=== PATIENT | female | born 1955 | race Hispanic/Latino ===

== ENCOUNTER 2020-04-14 23:19 | Emergency (ER) | payer MEDICARE ==
[~2020-04-14] VITALS: Ht 165.1 cm; Wt 103.0 kg
--- OUTSIDE RECORDS SUMMARY | 2020-04-14 23:43 | XMS REPORT | Clinical Summary ---
Author Author [facility] ict Organization [facility] ict Address Unknown Phone Unavailable Care Team Providers Care [place] [employer] Remover Name Role Phone Nancy Novoa MD PCP Allergies Comments Active Allergy Reactions Severity Noted Date Amoxicillin Rash, Itching 08/05/2017 Cough Lisinopril 03/11/2018 Penicillins 10/23/2013 Medications End Date Status Medication Sig Dispensed Refills Start Date Active promethazine (PHENERGAN) Take 1 tablet 120 tablet 2 25 mg tabletIndications: by mouth 9 Fall, initial encounter every 6 hours as needed for Nausea or Vomiting. Active spironolactone Take 1/2 45 tablet 3 (ALDACTONE) 25 mg (half) tablet 9 tabletIndications: by mouth Non-ischemic daily. cardiomyopathy Additional Information Patient not taking. Reported on 03/18/2020 9:53 AM Active metoprolol succinate Take 1/2 30 tablet 3 11/14 (TOPROL XL) 25 mg tablet by 9 extended release mouth daily. 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 Active furosemide (LASIX) 40 mg Take 1 tablet 90 tablet 3 tabletIndications: by mouth 2 9 Chemotherapy induced times daily. cardiomyopathy Additional Information Patient not taking. Reported on 03/18/2020 9:53 AM Active Miscellaneous Medical by 1 Each 0 Supply MiscIndications: Misc.(Non-Rolando 0 Malignant neoplasm of g; Combo right breast, stage 3 Route) route DISABILITY PARKING 2 PARKING PLACARDS. Active gabapentin (NEURONTIN) Take 1 90 capsule 2 300 mg capsule by 0 capsuleIndications: mouth 3 times Malignant neoplasm of daily. 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 Active benzonatate (TESSALON Take 1 20 capsule 0 /0 PERLES) 100 mg capsule by 0 capsuleIndications: mouth 2 times Metastatic breast cancer, daily as Cough needed for Cough. Active acetaminophen-codeine Take 1 tablet 60 tablet 0 (TYLENOL/CODEINE #3) by mouth 0 300-30 mg per every 6 hours tabletIndications: as needed for Malignant neoplasm of Pain. right breast, stage 3 Active albuterol 90 Inhale 2 6.7 g 3 mcg/actuation inhaler Puffs by 0 mouth 4 times daily as needed for Wheezing. Active loratadine (CLARITIN) 10 Take 1 tablet 90 tablet 1 mg tablet by mouth 0 daily. Active losartan (COZAAR) 25 mg Take 0.5 90 tablet 1 tabletIndications: tablets by 0 Non-ischemic mouth daily cardiomyopathy Needs to follow up (telemedicine ) with pcp for more refills. Active fluticasone propionate Use 2 Sprays 16 g 1 (FLONASE) 50 by each 0 mcg/actuation nasal nostril route sprayIndications: daily. Environmental allergies 04/29/2019 Discontinued (Reorder) gabapentin (NEURONTIN) Take 1 90 capsule 2 300 mg capsule by 9 capsuleIndications: mouth 3 times Malignant neoplasm of daily. right breast, stage 3 03/18/2020 Discontinued (Reorder) albuterol 90 Inhale 2 6.7 g 3 mcg/actuation Puffs by 9 inhalerIndications: Acute mouth 4 times URI daily as needed for Wheezing. 02/15/2020 Discontinued (Reorder) losartan (COZAAR) 25 mg Take 0.5 45 tablet 3 tabletIndications: tablets by 9 Non-ischemic mouth daily. cardiomyopathy 10/10/2019 Discontinued traMADol (ULTRAM) 50 mg Take 1 tablet 60 tablet 0 tabletIndications: Fall, by mouth 9 initial encounter every 6 hours as needed for up to 30 doses for Pain. 07/31/2019 Discontinued (Reorder) gabapentin (NEURONTIN) Take 1 90 capsule 2 300 mg capsule by 9 capsuleIndications: mouth 3 times Malignant neoplasm of daily. right breast, stage 3 05/06/2019 benzonatate (TESSALON Take 1 20 capsule 0 04/19 PERLES) 100 mg capsule by 9 capsuleIndications: mouth 3 times Metastatic breast cancer daily as needed for up to 7 days for Cough. 10/10/2019 Discontinued (Therapy comple jodie) guaiFENesin SR (MUCINEX) Take 1 tablet 60 tablet 1 600 mg extended release by mouth 2 9 tabletIndications: times daily. Malignant neoplasm of right breast, stage 3 08/24/2019 Discontinued (Reorder) acetaminophen-codeine Take 1 tablet 60 tablet 0 (TYLENOL/CODEINE #3) by mouth 9 300-30 mg per every 6 hours tabletIndications: as needed for Malignant neoplasm of Pain. right breast, stage 3 06/27/2019 clindamycin (CLEOCIN HCL) Take 1 30 capsule 0 300 mg capsule by 9 capsuleIndications: mouth 3 times Dentalgia, Dental daily for 10 infection days. 07/01/2019 chlorhexidine (PERIDEX) Swish with 473 mL 0 0.12 % mouth 1/2 oz of 9 washIndications: solution in Dentalgia, Dental mouth for 30 infection seconds and spit. Use twice daily.. 10/10/2019 Discontinued (Therapy comple jodie) ibuprofen (MOTRIN) 600 mg Take 1 tablet 30 tablet 0 tabletIndications: by mouth 9 Dentalgia, Dental every 8 hours infection as needed for Pain or Fever > 100.5. 03/18/2020 Discontinued (Reorder) mometasone (NASONEX) 50 Use 2 Sprays 17 g 0 1 mcg/actuation nasal by each 9 sprayIndications: nostril route Congestion of both ears daily. 11/24/2019 Discontinued (Reorder) loratadine (CLARITIN) 10 Take 1 tablet 30 tablet 0 mg tabletIndications: by mouth 9 Congestion of both ears daily. 07/22/2019 Discontinued (Reorder) benzonatate (TESSALON) Take 1 20 capsule 0 100 mg capsule by 9 capsuleIndications: mouth 3 times Pneumonia daily for 7 days For cough. 07/12/2019 doxycycline monohydrate Take 1 4 capsule 0 (MONODOX) 100 mg capsule by 9 capsuleIndications: mouth every Pneumonia 12 hours for 2 days. 08/10/2019 benzonatate (TESSALON) Take 1 30 capsule 0 100 mg capsule by 9 capsuleIndications: mouth 3 times Pneumonia daily for 10 days For cough. 11/03/2019 Discontinued (Reorder) gabapentin (NEURONTIN) Take 1 90 capsule 2 300 mg capsule by 9 capsuleIndications: mouth 3 times Malignant neoplasm of daily. right breast, stage 3 10/10/2019 Discontinued (Therapy comple jodie) acetaminophen-codeine Take 1 tablet 60 tablet 0 (TYLENOL/CODEINE #3) by mouth 0 300-30 mg per every 6 hours tabletIndications: as needed for Malignant neoplasm of Pain. right breast, stage 3 10/10/2019 Discontinued (Duplicate Orde r) Miscellaneous Medical by 1 Each 0 08/20 Supply MiscIndications: Misc.(Non-Rolando 0 Malignant neoplasm of g; Combo right breast, stage 3 Route) route PERMANENT PARKING DISABILITY. 10/17/2019 benzonatate (TESSALON Take 1 20 capsule 0 09/20 PERLES) 100 mg capsule by 0 capsuleIndications: Cough mouth 3 times daily as needed for up to 7 days for Cough. 10/10/2019 Discontinued (Error) heparin sodium,porcine/PF 0.3 mL by 1 Vial 1 (HEPARIN, PORCINE, PF,) INTRA-CATHETE 0 1,000 unit/mL Soln IV R route every (Home IV)Indications: 28 days. Malignant neoplasm of right breast, stage 3 10/15/2019 oseltamivir (TAMIFLU) 75 Take 1 10 capsule 0 0 mg capsuleIndications: capsule by 0 Influenza B mouth 2 times daily for 5 days. 11/11/2019 Discontinued (Reorder) gabapentin (NEURONTIN) Take 1 90 capsule 2 300 mg capsule by 0 capsuleIndications: mouth 3 times Malignant neoplasm of daily. right breast, stage 3 02/17/2020 Discontinued (Reorder) acetaminophen-codeine Take 1 tablet 60 tablet 0 (TYLENOL/CODEINE #3) by mouth 0 300-30 mg per every 6 hours tabletIndications: as needed for Malignant neoplasm of Pain. right breast, stage 3 02/15/2020 Discontinued (Reorder) loratadine (CLARITIN) 10 Take 1 tablet 30 tablet 0 mg tabletIndications: by mouth 0 Congestion of both ears daily. 02/17/2020 Discontinued (Reorder) benzonatate (TESSALON Take 1 20 capsule 0 PERLES) 100 mg capsule by 0 capsuleIndications: mouth 2 times Metastatic breast cancer, daily as Cough needed for Cough. 03/18/2020 Discontinued (Reorder) loratadine (CLARITIN) 10 Take 1 tablet 30 tablet 0 mg tabletIndications: by mouth 0 Congestion of both ears daily. 03/18/2020 Discontinued (Reorder) losartan (COZAAR) 25 mg Take 0.5 15 tablet 0 tabletIndications: tablets by 0 Non-ischemic mouth daily cardiomyopathy Needs to follow up (telemedicine ) with pcp for more refills. 03/18/2020 albuterol (PROVENTIL) 2.5 Inhale 3 mL 75 mL 2 mg /3 mL (0.083 %) by mouth once 0 nebulizer for 1 dose. solutionIndications: Environmental allergies 04/11/2020 Discontinued mometasone (NASONEX) 50 Use 2 Sprays 17 g 1 0 mcg/actuation nasal spray by each 0 nostril route daily. Status Hospital, Clinic, or Ordered Dose Route Frequency Start End Date Other Facility Date Administered Medication Ended heparin, porcine-PF 300 Units INTRA-CATHET ONCE 06/10/20 injection 300 Units 19 9 Discontinued heparin, porcine-PF 300 Units INTRA-CATHET EVERY 28 DAYS 0 injection 300 20 0 UnitsIndications: Malignant neoplasm of right breast, stage 3 Active Problems Problem Noted Date Syncope 10/10/2019 Pneumonia 07/07/2019 Abdominal pain 07/07/2019 Elevated CA-125 03/31/2018 Urinary incontinence 03/31/2018 S/P right mastectomy 09/12/2017 Chemotherapy induced diarrhea 08/09/2017 Encounter for dental exam and cleaning w/o abnormal f indings 05/27/2017 BRCA1 genetic carrier 03/29/2017 Breast cancer, stage 3 02/27/2017 Cancer Staging: Pathologic stage from : Stage IV (TX, NX, M1) - Signed by Radha Robison MD on 9 Clinical: Stage IV (T3, N2, M0) - Isabela d by Radha Robison MD on 01/24/2019 Breast hematoma Chest pain PE (pulmonary thromboembolism) Chemotherapy-induced neuropathy Pre-diabetes Influenza B Acute on chronic congestive heart failu re History of pulmonary embolism Right upper lobe consolidation Left bundle branch block Chemotherapy induced cardiomyopathy Peripheral polyneuropathy Cough Pneumonia of left upper lobe due to inf ectious organism Shortness of breath Bacteremia Encounters Care Team Description Date Type Specialty Blanca Segundo MD Medications 04/11/2020 Refill Internal Medicine Rosa Isela Esparza, ResidentMD Blanca Segundo MD Screen for colon cancer (Primary Dx); Environmental allergies; Non-ischemic cardiomyopathy 03/18/2020 Office Visit Internal Medicine Rosa Isela Esparza, ResidentMD 03/18/2020 Orders Only Internal Medicine Marcel Slater NP Malignant neoplasm of right breast, stag e 3 (Primary Dx) 03/16/2020 Telephonic Oncology Encounter Danay Fowler MD Michael, Binu L, NP Malignant neoplasm of right breast, stag e 3 (Primary Dx); Metastatic breast cancer; Cough 02/17/2020 Office Visit Oncology Nancy Novoa MD Medications 02/15/2020 Refill Family Practice Krystal Cox MD Medications 02/15/2020 Refill Oncology Danay Fowler MD Medications 02/15/2020 Refill Oncology Danay Fowler MD Medications 01/20/2020 Orders Only Oncology Margi Rojas RPH 01/20/2020 Orders Only Oncology Marcel Slater NP Medications 01/18/2020 Orders Only Oncology Yvonne Stout MD Metastatic breast cancer (Primary Dx); UTI symptoms 01/06/2020 Telephonic Oncology Encounter Danay Fowler MD 01/05/2020 Orders Only Oncology Krystal Cox MD Malignant neoplasm of right breast, stag e 3 12/31/2019 Ancillary Radiology Procedure Marcel Slater, FINANCIAL INVESTMENT ADVISER Medications 11/24/2019 Orders Only Oncology Danay Fowler MD Malignant neoplasm of right breast, stag e 3 (Primary Dx) 11/11/2019 Office Visit Oncology Marcel Slater, FINANCIAL INVESTMENT ADVISER Medications 11/03/2019 Orders Only Oncology Nova Ni MD Daniel, Catherine L, MD Shortness of breath (Primary Dx); Cough; Malignant neoplasm of right breast, stage 3; Influenza B; Precordial pain 10/09/2019 Emergency - 10/10/2019 Dinah Rocha, Physician Marcel Slater, FINANCIAL INVESTMENT ADVISER Malignant neoplasm of right breast, stag e 3 (Primary Dx) 09/16/2019 Office Visit Oncology Yvonne Stout MD Michael, Binu L, FINANCIAL INVESTMENT ADVISER Erica Scott RN Malignant neoplasm of right breast, stag e 3 (Primary Dx) 09/09/2019 Nurse Only Metastatic breast cancer 09/09/2019 Ancillary Radiology Procedure Marcel Slater, FINANCIAL INVESTMENT ADVISER Medications 09/09/2019 Orders Only Oncology Marcel Slater, FINANCIAL INVESTMENT ADVISER Medications 08/24/2019 Orders Only Oncology Marcel Slater, FINANCIAL INVESTMENT ADVISER Medications 07/31/2019 Orders Only Oncology Yvonne Stout MD Jefferson, Claudette, RN 07/27/2019 Nurse Only Danay Fowler MD Meza Rios, Laura M, Fellow() Metastatic breast cancer (Primary Dx); Pneumonia 07/22/2019 Office Visit Oncology Danay Fowler MD Jefferson, Claudette, RN Left without seen 07/22/2019 Nurse Only Ameena Mansfield MD Ordonez, Edgardo, MD Chest pain, unspecified type (Primary Dx ); Pneumonia of left upper lobe due to infectious organism; Shortness of breath; Pneumonia 07/05/2019 Hospital - Encounter 07/10/2019 Kaelyn Allen, ALLA Dentalgia (Primary Dx); Dental infection; Congestion of both ears 06/15/2019 Same Day Family Practice Dinah Rocha, Physician Nangia, MD [place] Laura M, Fellow(MD) Malignant neoplasm of right breast, stag e 3 (Primary Dx) 06/10/2019 Office Visit Oncology Danay Fowler MD Jefferson, Claudette, FABEIN 06/10/2019 Nurse Only Daniel Interiano MD Chemotherapy induced cardiomyopathy (Carey tonia Dx); LBBB (left bundle branch block) 05/19/2019 Office Visit Cardiology Radha Bertrand, Fellow() Danay Fowler MD Metastatic breast cancer (Primary Dx); Malignant neoplasm of right breast, stage 3 04/29/2019 Office Visit Oncology Marcel Slater NP Allen, Leikasha M, RN 04/22/2019 Hospital Oncology Encounter Metastatic breast cancer 04/22/2019 Ancillary Radiology Procedure after 04/14/2019 Immunizations Name Administration Dates Next Due Influenza Vaccine 06/02/2018 (Deferred: Patie nt Refused) Influenza Vaccine, 11/07/2017 Seasonal, Injectable PNEUMOCOCCAL 23-VALPS 01/21/2018 (Deferred: Patie nt Refused) VACCINE 25 MCG/0.5 ML INJECTION Tdap (Tetanus Toxoid, 11/08/2017 Reduced Diphtheria Toxoid And Acellular Pertussis, Absorbed) Family History Medical History Relation Name Comments Cancer Mother uterine Relation Name Status Comments Mother Social History Date Tobacco Use Types Packs/Day Years Used Never Smoker Smokeless Tobacco: Never Used Tobacco Cessation: Counseling Given: No Drinks/Week oz/Week Comments Alcohol Use Yes Food Insecurity Answer Date Recorded Within the past 12 months, you worried that your Never blade e 12/01/2018 food would run out before you got money to buy more. Within the past 12 months, the food you bought Never true 12/01/2018 just didn't last and you didn't have mo harsha to get more. Sex Assigned at Date Recorded Not on file Industry Job Start Date Occupation Not on file Not on file Not on file Travel End Travel History Travel Start No recent travel history available. Date Recorded COVID-19 Exposure Response 04/08/2020 10:05 PM CDT In the last month, have you been in contact with No / Unsure someone who was confirmed or suspected to have Coronavirus / COVID-19? Last Filed Vital Signs Reading Time Taken Comments Vital Sign 116/70 03/18/2020 9:31 AM CDT Blood Pressure 97 03/18/2020 9:31 AM CDT Pulse 36.6 C (97.9 F) 03/18/2020 9:31 AM CDT Temperature 18 03/18/2020 9:31 AM CDT Respiratory Rate 98% 03/18/2020 9:31 AM CDT Oxygen Saturation - - Inhaled Oxygen Concentration 103 kg (227 lb) 03/18/2020 9:31 AM CDT Weight 165.1 cm (5' 5") 03/18/2020 9:31 AM CDT Height 37.77 03/18/2020 9:31 AM CDT Body Mass Index Plan of Treatment Care Team Description Date Type Specialty Rosa Isela Esparza, ResidentMD [address] [place], [place] [id number] 05/02/2020 Office Visit Internal Medicine sb 07/26/2020 Appointment Health Maintenance Due Date Last Done Comments Cervical Cancer Scrn (3 1978 Yrs) Colorectal Cancer Scrn 12/09/2007 Annual (FIT/FOBT) Age 50 to 75 IMM Influenza Seasonal 05/19/2020 11/07/2017May to October (>/= 19 yrs) Implants Device Identifier Shelf Expiration Date Model / Serial / L ot Implanted Type Area Manufactur er 04/02/2020 [id number] / / [id number] Contour Injection Stent Soft Left: Ureter(s) [employer] Implanted: Qty: 1 on 09/15/2018 by [employer] Titus Durán MD at [facility] Procedures Comments Procedure Name Priority Date/Time Associated Diag nosis CBC Routine 02/17/2020 Malignant neopl asm of 4:11 PM CDT right breast, stage 3 Metastatic breast cancer COMPREHENSIVE METABOLIC Routine 02/17/2020 Malign ant neoplasm of PANEL 4:11 PM CDT right breast, stage 3 Metastatic breast cancer CBC/DIFF Routine 02/17/2020 Malignant neopl asm of 4:11 PM CDT right breast, stage 3 Metastatic breast cancer URINE CULTURE Routine 01/14/[address] cancer 4:05 PM CDT UTI symptoms URINALYSIS Routine 01/14/[address] cancer 4:05 PM CDT UTI symptoms URINALYSIS Routine 01/14/[address] cancer 4:05 PM CDT UTI symptoms TUMORIMAGE PET/CT SKUL-T Routine 12/31/2019 Malig nant neoplasm of 11:55 AM CDT right breast, stage 3 GLUCOSE POC Routine 12/31/2019 9:37 AM CDT CBC STAT 11/11/2019 Malignant neopl asm of 10:00 AM CDT right breast, stage 3 COMPREHENSIVE METABOLIC Routine 11/11/2019 Malign ant neoplasm of PANEL 10:00 AM CDT right breast, stage 3 CBC/DIFF STAT 11/11/2019 Malignant neopl asm of 10:00 AM CDT right breast, stage 3 INFLUENZA DNA/RNA AMP Routine 10/10/2019 PROBE, FLURSV 10:15 AM [employer] CT CHEST PE PROTOCOL STAT 10/10/2019 Shortness of breath 4:28 AM [employer] ECHG EKG PROC 12 LEAD Routine 10/10/2019 EKG; TRACING ONLY 2:12 AM [employer] METAL TROPONIN I STAT 10/10/2019 2:05 AM [employer] METAL D-DIMER STAT 10/10/2019 2:05 AM [employer] MET[employer] XRAY CHEST 2 VIEWS STAT 10/09/2019 9:10 PM [employer] METAL CREATININE POC Routine 10/09/2019 7:18 PM [employer] MET[employer] BMP POC Routine 10/09/2019 7:15 PM [employer] METAL TROPONIN I POC Routine 10/09/2019 7:06 PM [employer] METAL CBC STAT 10/09/2019 7:00 PM [employer] METAL HIV AG/AB COMBO ROUTINE STAT 10/09/2019 SCREENING 7:00 PM [employer] CBC/DIFF STAT 10/09/2019 7:00 PM [employer] MET[employer] ECHG EKG PROC 12 LEAD Routine 10/09/2019 EKG; TRACING ONLY 6:57 PM [employer] METAL CBC Routine 09/21/2019 Malignant neopl asm of 4:07 PM [employer] METAL right breast, stage 3 CBC/DIFF Routine 09/21/2019 Malignant neopl asm of 4:07 PM [employer] METAL right breast, stage 3 COMPREHENSIVE METABOLIC Routine 09/21/2019 Malign ant neoplasm of PANEL 2:34 PM [employer] MET[employer] right breast, stage 3 TUMORIMAGE PET/CT SKUL-T Routine 09/09/2019 Metas tatic breast cancer 11:30 AM [employer] METAL GLUCOSE POC Routine 09/09/2019 9:41 AM [employer] METAL CBC Routine 07/22/2019 Malignant neopl asm of 12:17 PM [employer] MET[employer] right breast, stage 3 COMPREHENSIVE METABOLIC Routine 07/22/2019 Malign ant neoplasm of PANEL 12:17 PM [employer] MET[employer] right breast, stage 3 CBC/DIFF Routine 07/22/2019 Malignant neopl asm of 12:17 PM [employer] MET[employer] right breast, stage 3 CBC Routine 07/10/2019 3:36 AM [employer] METAL BASIC METABOLIC PANEL Routine 07/10/2019 3:36 AM [employer] METAL CBC/DIFF Routine 07/10/2019 3:36 AM [employer] METAL CBC Routine 07/09/2019 3:47 AM [employer] METAL BASIC METABOLIC PANEL Routine 07/09/2019 3:47 AM [employer] METAL CBC/DIFF Routine 07/09/2019 3:47 AM [employer] MET[employer] ECHG EKG PROC 12 LEAD Routine 07/08/2019 EKG; TRACING ONLY 9:39 AM [employer] METAL CBC Routine 07/08/2019 3:29 AM [employer] METAL BASIC METABOLIC PANEL Routine 07/08/2019 3:29 AM [employer] METAL CBC/DIFF Routine 07/08/2019 3:29 AM [employer] METAL ECHG NON-INVASIVE PROC 07/07/2019 ECHOCARDIOGRAM 2-D W/O 2:12 PM [employer] METAL CONTRAST (PROSOLVE) BLOOD CULTURE Timed 07/07/2019 11:25 AM [employer] BLOOD CULTURE Timed 07/07/2019 10:33 AM [employer] MET[employer] BASIC METABOLIC PANEL Routine 07/07/2019 3:46 AM [employer] METAL CBC (WITHOUT Routine 07/07/2019 DIFFERENTIAL) 3:46 AM [employer] METAL INFUSION PUMP Routine 07/06/2019 7:44 AM [employer] METAL VBG POC Routine 07/06/2019 6:52 AM [employer] METAL VBG POC Routine 07/06/2019 4:51 AM [employer] METAL TROPONIN I POC Routine 07/06/2019 3:29 AM [employer] MET[employer] ECHG EKG PROC 12 LEAD STAT 07/06/2019 EKG; TRACING ONLY 3:17 AM [employer] METAL TROPONIN I POC Routine 07/06/2019 3:08 AM [employer] METAL VBG POC Routine 07/06/2019 2:52 AM [employer] METAL GRAM-POS BLOOD CULTURE Add-on 07/06/2019 2:52 AM [employer]AL BLOOD CULTURE STAT 07/06/2019 2:52 AM [employer] METAL BLOOD CULTURE STAT 07/06/2019 2:52 AM [employer] METAL TROPONIN I POC Routine 07/06/2019 12:58 AM [employer] MET[employer] ECHG EKG PROC 12 LEAD STAT 07/06/2019 EKG; TRACING ONLY 12:47 AM [employer] METAL TROPONIN I POC Routine 07/06/2019 12:36 AM [facility] [facility] CT CHEST PE PROTOCOL STAT 07/06/2019 Chest hill n, unspecified 12:34 AM [employer] METAL type URINALYSIS STAT 07/05/2019 11:05 PM [employer] METAL URINALYSIS STAT 07/05/2019 11:05 PM [employer] MET[employer] XRAY CHEST 2 VIEWS STAT 07/05/2019 Chest pain, unspecified 11:02 PM [employer] type BMP POC Routine 07/05/2019 9:20 PM [employer] MET[employer] TROPONIN I POC Routine 07/05/2019 9:18 PM [employer] METAL CBC STAT 07/05/2019 9:15 PM [employer] METAL CBC/DIFF STAT 07/05/2019 9:15 PM [employer] ECHG EKG PROC 12 LEAD Routine 07/05/2019 EKG; TRACING ONLY 9:09 PM [employer] MET[employer] CBC Routine 06/10/[address] cancer 12:15 PM CDT COMPREHENSIVE METABOLIC Routine 06/10/2019 Metast atic breast cancer PANEL 12:15 PM CDT CBC/DIFF Routine 06/10/[address] cancer 12:15 PM CDT CBC Routine 04/29/[address] cancer 11:51 AM CDT COMPREHENSIVE METABOLIC Routine 04/29/2019 Metast atic breast cancer PANEL 11:51 AM CDT CBC/DIFF Routine 04/29/[address] cancer 11:51 AM CDT TUMORIMAGE PET/CT SKUL-T Routine 04/22/2019 Metas tatic breast cancer 9:27 AM CDT GLUCOSE POC Routine 04/22/2019 7:37 AM CDT after 04/14/2019 Results * CBC/Diff (02/17/2020 4:11 PM CDT) Only the most recent of 11 results within the time period is included. [facility] WBC 6.7 4.5 - 11.0 K/uL [facility] RBC 4.22 4.20 - 5.40 M/uL [facility] Hemoglobin 13.0 12.0 - 16.0 g/dL [facility] Hematocrit 40.5 37.0 - 47.0 % [facility] MCV 96.0 (H) 82.0 - 92.0 fL [facility] MCH 30.8 27.0 - 32.0 pg [facility] MCHC 32.1 32.0 - 36.0 g/dL [facility] RDW 53.1 (H) 36.4 - 46.3 fL [facility] Platelet 195 150 - 400 K/uL [facility] Mean Platelet 9.2 (L) 9.4 - 12.4 fL [facility] Volume LAB Neutrophil 55.6 34.0 - 70.0 % [facility] Lymphs 36.0 20.0 - 50.0 % [facility] Monocytes 6.6 5.0 - 12.0 % [facility] Eos 1.5 0.7 - 5.0 % [facility] Basos 0.3 0.1 - 1.2 % [facility] Immature 0.3 0.0 - 0.5 % [facility] Granulocytes LAB Neutrophils 3.71 1.56 - 6.13 K/uL [facility] (Absolute) LAB Lymphs 2.40 1.18 - 3.74 K/uL [facility] (Absolute) LAB Monocytes(Absol 0.44 (H) 0.24 - 0.36 K/uL [facility] roger) LAB Eos (Absolute) 0.10 0.04 - 0.36 K/uL [facility] Baso (Absolute) 0.02 0.01 - 0.08 K/uL [facility] Immature Grans 0.02 0.00 - 0.03 K/uL [facility] (Abs) LAB Specimen Blood Performing Organization Address City/State/Zipcode Ph one Number [facility] [place], [place] [address] * Comprehensive Metabolic Panel (02/17/2020 4:11 PM CDT) Only the most recent of 6 results within the time period is included. [facility] Sodium 140 136 - 145 mmol/L [facility] Potassium 4.2 3.5 - 5.1 mmol/L [facility] Chloride 106 98 - 107 mmol/L [facility] CO2 28 21 - 31 mmol/L [facility] Glucose 102 70 - 110 mg/dL [facility] Calcium 10.2 8.6 - 10.3 mg/dL [facility] Urea Nitrogen 16.0 7.0 - 25.0 mg/dL [facility] Creatinine 0.8 0.6 - 1.2 mg/dL [facility] Alkaline 108 (H) 34 - 104 U/L [facility] Phosphatase LAB ALT 16 7 - 52 U/L [facility] AST 20 13 - 39 U/L [facility] Bilirubin, 0.5 0.2 - 1.2 mg/dL [facility] Total LAB Total Protein 7.6 6.0 - 8.3 g/dL [facility] GFR, Estimated 73 (L) >=90 mL/min/1.73 m2 [facility] [email or web address]] IC LAB Albumin 4.1 3.7 - 5.3 g/dL [facility] Anion Gap 6 5 - 16 mmol/L [facility] Specimen Blood Performing Organization Address [place]State[place] [place] one Number [facility] [place] [place] [address] * Urinalysis (01/14/2020 4:05 PM CDT) Only the most recent of 2 results within the time period is included. [facility] Color Yellow Colorless, Straw, [facility] Clarity Cloudy (A) Clear [facility] Spec [place], 1.027 1.001 - 1.035 [facility] pH, Ur 5.0 5.0 - 8.0 [facility] Protein, Ur 2+ (A) Negative mg/dL [facility] Glucose, Ur Negative Negative mg/dL [facility] Ketone, Ur Negative Negative mg/dL [facility] Bilirubin, Ur Negative Negative mg/dL [facility] Nitrite, Ur Negative Negative [facility] Leukocyte Negative Negative mg/dL [facility] Blood, Ur Negative Negative mg/dL [facility] RBC <1 0 - 4 /HPF [facility] WBC <1 0 - 5 /HPF [facility] Epithelial Cell 3 (H) <=1 /HPF [facility] Mucous Present (A) None seen /HPF [facility] Calc Ox Ro Present (A) None seen /HPF [facility] Urobilinogen, <1.0 <1.0 EU/dL [facility] Specimen Urine Performing Organization Address [facility] one Number [facility] [address] [place] [address] * Urine Culture (01/14/2020 4:05 PM CDT) Urine Culture Urogenital debby [facility] Specimen Urine - Clean Catch Mid Stream Performing Organization Address [facility] one Number [facility] [address] [place] [address] * TUMORIMAGE PET/CT SKUL-T (12/31/2019 11:55 AM CDT) Only the most recent of 3 results within the time period is included. Specimen Impressions Performed At IMPRESSION: SMS 1. Status post mastectomy without evide nce of residual hypermetabolic FDG avid uptake. The previously describ ed pulmonary left apical scarring with residual metastatic nodule has res olved. 2. Non-Hypermetabolic right upper lobe subcentimeter nodule. 3. 2 mildly hypermetabolic soft tissu e left anterior abdomen nodules suggest inflammatory etiology or inject ion granuloma. Attention on followup recommended. Signed By: Roseline Han MD, 12/31/2019 1:39 PM Narrative Performed At EXAM: FDG PET/CT SCAN TUMOR IMAGING SMS INDICATION: 64-year old woman with meta static right breast carcinoma status post chemotherapy radiation and mastectomy and maintained on Talazoparib, . The study is bein g performed for purposes of restaging. TECHNIQUE: Approximately 60 minutes aft er 13.75 mCi IV FDG administration, PET/CT imaging was perf ormed from the level of the skull base to the midthigh. . Cross-section al as well as 3D (MIP) images of the PET data and cross-sectional images of the CT data were generated with co-registration of the 2 image set s. ?The PET images are displayed with and without attenuation correction . ?CT imaging was employed for attenuation correction and anatomic loc alization of PET scan abnormalities. ?A diagnostic CT with co ntrast agents was not performed. Blood glucose: 115 mg/dl Weight: 230 lbs Uptake time: 65 minutes CTDI: 15.99 mGy COMPARISON: Most recent FDG PET/CT 09/09. FINDINGS: Head and neck: There is no abnormal increased or decreased FDG activity in the visualized brain and ce rvical regions. Symmetric tracer uptake in the tonsils is likely physiol ogic. Chest: No FDG-avid pulmonary nodules or mediastinal adenopathy are seen. There is no pleural effusion or pericardial effusion. The previously described diffuse bilateral groundglass opacity has resolved. No abnormal FDG avid mediastinal, hilar lymph nodes identified. Stable, nonhypermetabolic right apical nodule 3 mm on image #83. Resolved left apical scarring without hypermetabolic uptake. Evidence cardiomegaly. Patient status p ost right mastectomy. Abdomen and pelvis: No focal abnorma l FDG uptake is identified in the liver, bilateral adrenals, spleen, or p ancreas. No lymphadenopathy is seen in the retroperitoneum and pelvis. Status post cholecystectomy 2 mildly hypermetabolic subcutaneous no dules the left anterior abdomen the first of which is on image #216 wit h Max SUV 4.5, 7 mm., and image 191, max SUV 3.5, 5.6 mm. Skeleton: No focal abnormal FDG activ ity is identified in the skeleton to suggest bony metastasis. Procedure Note Interface, Rad/Mammog In - 12/31/2019 1:44 PM CDT EXAM: FDG PET/CT SCAN TUMOR IMAGING INDICATION: 64-year old woman with metastatic right breast carcinoma status post chemotherapy radiation and mastectomy and maintained on Talazoparib, . The study is being performed for purposes of restaging. TECHNIQUE: Approximately 60 minutes after 13.75 mCi IV FDG administration, PET/CT imaging was performed from the level of the skull base to the midthigh. . Cross-sectional as well as 3D (MIP) images of the PET data and cross-sectional images of the CT data were generated with co-registration of the 2 image sets. ?The PET images are displayed with and without attenuation correction. ?CT imaging was employed for attenuation correction and anatomic localization of PET scan abnormalities. ?A diagnostic CT with contrast agents was not performed. Blood glucose: 115 mg/dl Weight: 230 lbs Uptake time: 65 minutes CTDI: 15.99 mGy COMPARISON: Most recent FDG PET/CT 09/09/2019. FINDINGS: Head and neck: There is no abnormal increased or decreased FDG activity in the visualized brain and cervical regions. Symmetric tracer uptake in the tonsils is likely physiologic. Chest: No FDG-avid pulmonary nodules or mediastinal adenopathy are seen. There is no pleural effusion or pericardial effusion. The previously described diffuse bilateral groundglass opacity has resolved. No abnormal FDG avid mediastinal, hilar lymph nodes identified. Stable, nonhypermetabolic right apical nodule 3 mm on image #83. Resolved left apical scarring without hypermetabolic uptake. Evidence cardiomegaly. Patient status post right mastectomy. Abdomen and pelvis: No focal abnormal FDG uptake is identified in the liver, bilateral adrenals, spleen, or pancreas. No lymphadenopathy is seen in the retroperitoneum and pelvis. Status post cholecystectomy 2 mildly hypermetabolic subcutaneous nod ules the left anterior abdomen the first of which is on image #216 with Max SUV 4.5, 7 mm., and image 191, max SUV 3.5, 5.6 mm. Skeleton: No focal abnormal FDG activity is identified in the skeleton to suggest bony metastasis. IMPRESSION IMPRESSION: 1. Status post mastectomy without eviden ce of residual hypermetabolic FDG avid uptake. The previously described pulmonary left apical scarring with residual metastatic nodule has resolved. 2. Non-Hypermetabolic right upper lobe s ubcentimeter nodule. 3. 2 mildly hypermetabolic soft tissue left anterior abdomen nodules suggest inflammatory etiology or injection granuloma. Attention on followup recommended. Signed By: Roseline Han MD, 12/31/2019 1:39 PM Performing Organization Address [facility] one Number SMS * POCT GLUCOSE POC docked device (12/31/2019 9:37 AM CDT) Only the most recent of 3 results within the time period is included. [facility] Glucose POC 115 (H) 74 - 106 mg/dL [facility] Specimen Blood Performing Organization Address [facility] [place] one Number [facility] [place] [place] [address] [facility] [address] [place] [address] * Influenza A/B and RSV PCR (10/10/2019 10:15 AM BENCH PATTERNMAKER METAL) [facility] Influenza A Not detected Not detected [facility] Influenza B Detected (A) Not detected [facility] RSV Not detected Not detected [facility] Specimen Nasal/Nasopharyngeal Swab - Nasopharynx Narrative Performed At This test utilizes FDA cleared Becky co bas Influenza A/B & RSV real-time RT-PCR [facility] assay for qualitative detection and dis crimination of Influenza A virus, Influenza B virus and Respiratory Syncy tial virus (RSV). Additional testing is required to differentiate any specific Influenza A subtypes or strains or specific RSV subgroups. Performing Organization Address City/State/Zipcode Ph one Number [facility] [address] [place] [address] * CT CHEST PE PROTOCOL (10/10/2019 4:28 AM BENCH PATTERNMAKER METAL) Only the most recent of 2 results within the time period is included. Specimen Impressions Performed At IMPRESSION: SMS No pulmonary emboli. Mild cardiomegaly. Scattered areas of a ir trapping. If the report is "FINALIZED" it indicat es that the attending/staff radiologist has reviewed the images and agrees with the resident's interpretation. Dictated By: Henrry Butcher MD, 4:42 AM I have reviewed the study and agree wit h the findings in this report. Signed By: Zachary Mendez, 10/10/2019 5 :23 AM Narrative Performed At EXAM: CT Chest WITH contrast (PE Protocol) [facility] INDICATION: PE suspected, intermediate prob, positive D-dimer COMPARISON: CT chest PE on 07/05/2019 a nd PET/CT 09/09/2019. TECHNIQUE: Chest was scanned utilizing a multidete ctor helical scanner from the lung apex through the level of the diap hragm after administration of IV contrast. Thin section reconstructions were obtained with special concentration on the pulmonary arteries . Coronal and sagittal reformations were obtained. Pulmonary e mbolism protocol was performed. IV CONTRAST: 100 mL of Omnipaque 350 COMPLICATIONS: None RADIATION DOSE: Total DLP: 295 mGy*cm Estimated effective dose: (DLP x 0.014 x size factor) mSv CTDIvol has been reviewed. It is below the limits set by the Radiation Protocol Committee (RPC). FINDINGS: LINES/ TUBES: None. PULMONARY ARTERIES: No filling defect i s identified within the pulmonary arteries to the segmental level. Main p ulmonary artery measures 2.8 cm in diameter. LUNGS AND AIRWAYS: Right apical scarrin g and streaky subpleural opacities in the right anterior lung, l ikely postradiation changes. Scattered areas of air trapping. Mild l eft lower lobe subpleural reticulation, likely dependent atelecta sis. Resolution of left upper lobe consolidation. Airways are dylan l. PLEURA: The pleural spaces are clear. LYMPH NODES: No enlarged axillary, supr aclavicular, mediastinal, or hilar lymph nodes. Descending thoracic aorta is mildly tortuous. THYROID/BASE OF NECK: Visualized portio ns are normal. HEART AND MEDIASTINUM: The heart is m ildly enlarged. There is no pericardial effusion. UPPER ABDOMEN: Cholecystectomy clips. BONES: A 0.5 cm sclerotic lesion in the posterior aspect of T6 vertebral body, stable compared to CT chest of 01/24/2017 and likely benign. SOFT TISSUES: Right mastectomy and post surgical changes of the right axilla. Procedure Note Interface, Rad/Mammog In - 10/10/2019 5:28 AM [facility] PATTERN[employer] METAL EXAM: CT Chest WITH contrast (PE Protocol) INDICATION: PE suspected, intermediate prob, positive D-dimer COMPARISON: CT chest PE on 07/05/2019 and PET/CT 09/09/2019. TECHNIQUE: Chest was scanned utilizing a multidetector helical scanner from the lung apex through the level of the diaphragm after administration of IV contrast. Thin section reconstructions were obtained with special concentration on the pulmonary arteries. Coronal and sagittal reformations were obtained. Pulmonary embolism protocol was performed. IV CONTRAST: 100 mL of Omnipaque 350 COMPLICATIONS: None RADIATION DOSE: Total DLP: 295 mGy*cm Estimated effective dose: (DLP x 0.014 x size factor) mSv CTDIvol has been reviewed. It is below the limits set by the Radiation Protocol Committee (RPC). FINDINGS: LINES/ TUBES: None. PULMONARY ARTERIES: No filling defect is identified within the pulmonary arteries to the segmental level. Main pulmonary artery measures 2.8 cm in diameter. LUNGS AND AIRWAYS: Right apical scarring and streaky subpleural opacities in the right anterior lung, likely postradiation changes. Scattered areas of air trapping. Mild left lower lobe subpleural reticulation, likely dependent atelectasis. Resolution of left upper lobe consolidation. Airways are normal. PLEURA: The pleural spaces are clear. LYMPH NODES: No enlarged axillary, supraclavicular, mediastinal, or hilar lymph nodes. Descending thoracic aorta is mildly tortuous. THYROID/BASE OF NECK: Visualized portions are normal. HEART AND MEDIASTINUM: The heart is mildly enlarged. There is no pericardial effusion. UPPER ABDOMEN: Cholecystectomy clips. BONES: A 0.5 cm sclerotic lesion in the posterior aspect of T6 vertebral body, stable compared to CT chest of 01/24/2017 and likely benign. SOFT TISSUES: Right mastectomy and postsurgical changes of the right axilla. IMPRESSION IMPRESSION: No pulmonary emboli. Mild cardiomegaly. Scattered areas of air trapping. If the report is "FINALIZED" it indicates that the attending/staff radiologist has reviewed the images and agrees with the resident's interpretation. Dictated By: Henrry Butcher MD, 10/10/2019 4:42 AM I have reviewed the study and agree with the findings in this report. Signed By: Zachary Mendez, 10/10/2019 5:23 AM Performing Organization Address [facility] one Number [facility] * 12 LEAD EKG (10/10/2019 2:12 AM BENCH PATTERNMAKER METAL) 12 LEAD EKG FOR [facility] Test Date: 2019-10-10 Pat Name: DANIEL PARIKH Department: 5520 Room: Gender: F Payroll Administrative Assistant: : 1955 Requested By: NOVA NI Order Number: [id number] Reading MD: Daniel Interiano M.D. Measurements Intervals [place] Rate: 81 P: 19 [place]: 173 QRS: -17 QRSD: 158 T: 98 QT: 460 QTc: 536 Interpretive Statements SINUS RHYTHM POSSIBLE LEFT ATRIAL ENLARGEMENT LEFT BUNDLE BRANCH BLOCK Electronically Signed On 10-10-2019 4:07:07 B[facility]CH PATTERN[employer]KER METAL by Daniel Interiano M.D. Specimen Performing Organization Address [facility] one Number [facility] * Troponin I (10/10/2019 2:05 AM BENCH PATTERNMAKER METAL) Troponin I <0.03 <0.04 ng/mL [facility] Specimen Blood Performing Organization Address [facility] one Number [facility] [address] [place] [address] * D-Dimer (10/10/2019 2:05 AM [facility]EN[facility] PATTERNMAKER METAL) Pathologist [facility] D-Dimer 1.18 (H)Comment: Values of 0.22 - 0.48 ug/mL [facility] quantitative D-Dimer less than FEU [facility] 0.40 ug/mL FEU have been reported to be associated with a low probability of deep vein thrombosis/pulmonary embolism. This test alone should not be used to rule out DVT/PE. Specimen Blood Performing Organization Address City/State/Zipcode Ph one Number [facility] [address] [place] [address] * XRAY CHEST 2 VIEWS (10/09/2019 9:10 PM [facility]EN[facility] PATTERNMAKER METAL) Only the most recent of 2 results within the time period is included. Specimen Impressions Performed At IMPRESSION: SMS No acute cardiopulmonary process. Posto perative changes as described above. If the report is "FINALIZED" it indicat es that the attending/staff radiologist has reviewed the images and agrees with the resident's interpretation. Dictated By: Jamal Huddleston MD, 0 12:04 AM I have reviewed the study and agree wit h the findings in this report. Signed By: Zachary Mendez, 10/10/2019 1 2:48 AM Narrative Performed At EXAMINATION: XRAY CHEST 2 VIEWS SMS INDICATION: COUGH COMPARISON: Chest radiographs 019, whole body PET CT 09/09/2019 FINDINGS: PA and lateral views TUBES and LINES: Left IJ Port-A-Cath, tip in the SVC. LUNGS: Lungs are well inflated. There is no evidence of pneumonia or pulmonary edema. PLEURA: No pleural effusion or pneumo thorax. HEART AND MEDIASTINUM: The cardiomedi astinal silhouette is unremarkable. BONES AND SOFT TISSUES: No focal osseou s lesion. Surgical clips in the right chest wall/axilla. Status post ri ght mastectomy. UPPER ABDOMEN: No free air under the di aphragm. Procedure Note Interface, Rad/Mammog In - 10/10/2019 12:53 AM [facility] [employer]TERN[facility] METAL EXAMINATION: XRAY CHEST 2 VIEWS INDICATION: COUGH COMPARISON: Chest radiographs 07/05/2019, whole body PET CT 09/09/2019 FINDINGS: PA and lateral views TUBES and LINES: Left IJ Port-A-Cath, tip in the SVC. LUNGS: Lungs are well inflated. There is no evidence of pneumonia or pulmonary edema. PLEURA: No pleural effusion or pneumothorax. HEART AND MEDIASTINUM: The cardiomediastinal silhouette is unremarkable. BONES AND SOFT TISSUES: No focal osseous lesion. Surgical clips in the right chest wall/axilla. Status post right mastectomy. UPPER ABDOMEN: No free air under the diaphragm. IMPRESSION IMPRESSION: No acute cardiopulmonary process. Postoperative changes as described above. If the report is "FINALIZED" it indicates that the attending/staff radiologist has reviewed the images and agrees with the resident's interpretation. Dictated By: Jamal Huddlseton MD, 10/10/2019 12:04 AM I have reviewed the study and agree with the findings in this report. Signed By: Zachary Mendez, 10/10/2019 12:48 AM Performing Organization Address [facility] one Number SMS * POCT CREATININE POC docked device (10/09/2019 7:18 PM [facility] PATTERNMAKER METAL) Creatinine POC 0.7 0.6 - 1.3 mg/dL [facility] GFR, Estimated >90 >=90 mL/min/1.73 m2 [facility] Specimen Blood, venous Performing Organization Address [facility] one Number [facility] [address] [place] [address] * POCT BMP POC docked device (10/09/2019 7:15 PM [facility]ENCH PATTERNMAKER METAL) Only the most recent of 2 results within the time period is included. Sodium POC 140 136 - 145 mmol/L [facility] Potassium POC 4.2 3.5 - 5.1 mmol/L [facility] Chloride POC 104 98 - 107 mmol/L [facility] TCO2 POC 29Comment: Physician Notified 21 - 32 mmol/L [facility] Urea Nitrogen 15 7 - 18 mg/dL [facility] POC [facility] Glucose POC 112 (H) 74 - 106 mg/dL [facility] Hemoglobin POC 13.9 12 - 16 g/dL [facility] Hematocrit POC 41.0 37.0 - 47.0 % [facility] Specimen Blood, venous Performing Organization Address [facility] one Number [facility] [address] [place] [address] * POCT TROPONIN I POC docked device (10/09/2019 7:06 PM [facility] PATTERNMAKER METAL) Only the most recent of 6 results within the time period is included. Troponin POC 0.01Comment: Physician 0.00 - 0.08 ng/mL [facility] Notified [facility] Specimen Blood, venous Performing Organization Address [facility] one Number [facility] [address] [place] [address] * HIV: unless the patient is HIV positive (10/09/2019 7:00 PM [facility]EN[facility] PATTERNMAKER METAL) HIV Ag/Ab Combo Negative Negative [facility] Specimen Blood Performing Organization Address [facility] one Number [facility] [address] [place] [address] * 12 LEAD EKG (10/09/2019 6:57 PM BENCH PATTERNMAKER METAL) 12 LEAD EKG FOR [facility] Test Date: 2019-10-09 Pat Name: DANIEL PARIKH Department: 5520 Room: Gender: F Payroll Administrative Assistant: [id number] : 1955 Requested By: OBDULIA Lazcano Order Number: [id number] Reading MD: tiara shen Measurements Intervals [place] Rate: 79 P: 45 [place]: 167 QRS: -30 QRSD: 156 T: 88 QT: 452 QTc: 520 Interpretive Statements SINUS RHYTHM POSSIBLE LEFT ATRIAL ENLARGEMENT [-0.1mV P WAVE IN V1/V2] LEFT BUNDLE BRANCH BLOCK [120+ ms QRS DURATION, 80+ ms Q/S IN V1/V2, 85+ ms R IN I/aVL/V5/V6] Reviewed by Electronically Signed On 10-09-2019 20:21:08 BENCH PATTERNMAKER METAL by tiara shen Specimen Performing Organization Address [facility] one Number [facility] * Basic Metabolic Panel (07/10/2019 3:36 AM BENCH PATTERNMAKER METAL) Only the most recent of 4 results within the time period is included. Sodium 143 136 - 145 mmol/L [facility] Potassium 4.0 3.5 - 5.1 mmol/L [facility] Chloride 105 98 - 107 mmol/L [facility] CO2 26 21 - 31 mmol/L [facility] Urea Nitrogen 18.0 7.0 - 25.0 mg/dL [facility] Creatinine 0.8 0.6 - 1.2 mg/dL [facility] Glucose 106 70 - 110 mg/dL [facility] Calcium 9.4 8.6 - 10.3 mg/dL [facility] GFR, Estimated 73 (L) >=90 mL/min/1.73 m2 [facility] Anion Gap 12 5 - 16 mmol/L [facility] Specimen Blood Performing Organization Address [facility] Ph one Number [facility] [address] [place] [address] [phone] * 12 LEAD EKG (07/08/2019 9:39 AM BENCH PATTERNMAKER METAL) 12 LEAD EKG FOR [facility] Test Date: 2019-07-08 Pat Name: DANIEL PARIKH Department: [facility] Room: Gender: F Payroll Administrative Assistant: [id number] : 1955 Requested By: VAIBHAV KHAN Order Number: [id number] Reading MD: Prabha Caballero MD Measurements Intervals [place] Rate: 76 P: 32 [place]: 165 QRS: 2 QRSD: 158 T: 53 QT: 460 QTc: 517 Interpretive Statements Sinus rhythm Left bundle branch block Electronically Signed On 07-08-2019 12:51:48 BENCH PATTERNMAKER METAL by Prabha Caballero MD Specimen Performing Organization Address [facility] one Number SMS * TRANSTHORACIC ECHO (TTE) (07/07/2019 2:12 PM BENCH PATTERNMAKER METAL) TRANSTHORACIC Transthoracic [facility] ECHO (TTE) Echo Report DANIEL ZHU Age: 63 Gender: F : 1955 Exam Date: 07/07/2019 14:12 Exam Location: [facility] Echo Ordering Phys: VAIBHAV KHAN Referring Phys: Reading Phys: Prabha Caballero MD Fellow Phys: Fellow Phys: Client Relations Specialist: Andrew Oswald Reason For Exam: Indications: CoNS w/ mecA, staph epi bacteremia. evaluate for endocarditis. 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 Cardiomyopathy ICD-9 Codes: I42.3 Exam Type: TRANSTHORACIC ECHO (TTE) Procedure CPT: 32378 Addtional CPT: Ht (in): 63 BSA: 2.26 HR: 78 Rhythm: Sinus rhythm Wt (lb): 240 BP: 95 / 74 Technical Quality: Adequate History: MEASUREMENTS Normal ranges based on 95% confidence intervals for adults, some normal patients may fall outside of this range especially when indexing for BSA 2D ECHO LV Diastolic Diameter PLAX 7.2 cm 4.2-5.8 (M) / 3.8-5.2 (F) LV Systolic Diameter PLAX 4.3 cm 2.5-4.0 (M) / 2.2-3.5 (F) LV Fractional Shortening PLAX 39.9 % IVS Diastolic Thickness 1.3 cm 0.6-1.0 (M) / 0.6-0.9 (F) LVPW Diastolic Thickness 1.2 cm 0.6-1.0 (M) / 0.6-0.9 (F) LV Relative Wall Thickness 0.35 <= 0.42 LVOT Diameter 2.3 cm Aortic Root Diameter 3.1 cm LA Systolic Diameter LX 3.3 cm LA Ao Ratio 1.1 LV Diastolic Volume MOD BP 252 cm 62-150 cm (M) / 46-106 cm (F) LV Mass by linear method 450 g LV Mass by linear method Index 199 g/m DOPPLER LVOT Peak Velocity 109 cm/s LVOT Peak Gradient 4.8 mmHg LVOT Mean Velocity 69.3 cm/s LVOT Mean Gradient 1.9 mmHg LVOT Velocity Time Integral 17.4 cm LVOT Stroke Volume 73.8 cm Mitral E Point Velocity 83.4 cm/s Mitral A Point Velocity 97.5 cm/s Mitral E to A Ratio 0.86 LV E' Lateral Velocity 8.7 cm/s Mitral E to LV E' Lateral Ratio 9.6 LV E' Septal Velocity 6.6 cm/s Mitral E to LV E' Septal Ratio 12.7 FINDINGS Left Ventricle Severe left ventricular dilatation. Severely reduced global left ventricular systolic function. Left ventricular ejection fraction is 30-34%. Indeterminent diastology Right Ventricle The right ventricle is normal in size and systolic function. Right Atrium The right atrium is normal in size. Left Atrium Mild dilation IAS Mitral Valve Mitral leaflets mildly thickened. Mild MR Aortic Valve AV is not well seen, likely trileaflet, diffuse calcification. There is a small linear density that is on the aortic side of the valve. appearance similar to prior study in 02/2019 Tricuspid Valve Tricuspid valve not well visualized. Pulmonic Valve Pulmonic valve not well visualized. Pericardium No pericardial effusion. Aorta Normal aortic root for body surface area. IVC The inferior vena cava is normal in size. CONCLUSIONS Severe left ventricular dilatation. Severely reduced global left ventricular systolic function. Left ventricular ejection fraction is 30-34%. Indeterminent diastology. AV sclerosis. other valves are not well seen no significant changes compared to prior study Prabha Caballero MD (Electronically Signed) Final Date: 07 July 2019 16:16 2D ECHO LV Diastolic Diameter PLAX 7.2 cm 4.2-5.8 (M) / 3.8-5.2 (F) LV Systolic Diameter PLAX 4.3 cm 2.5-4.0 (M) / 2.2-3.5 (F) LV Fractional Shortening PLAX 39.9 % IVS Diastolic Thickness 1.3 cm 0.6-1.0 (M) / 0.6-0.9 (F) LVPW Diastolic Thickness 1.2 cm 0.6-1.0 (M) / 0.6-0.9 (F) LV Relative Wall Thickness 0.35 <= 0.42 LVOT Diameter 2.3 cm Aortic Root Diameter 3.1 cm LA Systolic Diameter LX 3.3 cm LA Ao Ratio 1.1 LV Diastolic Volume MOD BP 252 cm 62-150 cm (M) / 46-106 cm (F) LV Mass by linear method 450 g LV Mass by linear method Index 199 g/m DOPPLER LVOT Peak Velocity 109 cm/s LVOT Peak Gradient 4.8 mmHg LVOT Mean Velocity 69.3 cm/s LVOT Mean Gradient 1.9 mmHg LVOT Velocity Time Integral 17.4 cm LVOT Stroke Volume 73.8 cm Mitral E Point Velocity 83.4 cm/s Mitral A Point Velocity 97.5 cm/s Mitral E to A Ratio 0.86 LV E' Lateral Velocity 8.7 cm/s Mitral E to LV E' Lateral Ratio 9.6 LV E' Septal Velocity 6.6 cm/s Mitral E to LV E' Septal Ratio 12.7 Specimen Performing Organization Address City/[facility] one Number SMS * Blood Culture X2 - 2 non-specific sites (07/07/2019 11:25 AM [facility] [employer]) Only the most recent of 4 results within the time period is included. Blood Culture No growth 5 days [facility] Specimen Blood - Arm, left Performing Organization Address City/[facility]/Zipcode Ph one Number [facility] [address] [place] [address] * CBC (without differential) (07/07/2019 3:46 AM [facility] [employer]) WBC 8.3 4.5 - 11.0 K/uL [facility] RBC 3.38 (L) 4.20 - 5.40 M/uL [facility] Hemoglobin 11.1 (L) 12.0 - 16.0 g/dL [facility] Hematocrit 33.8 (L) 37.0 - 47.0 % [facility] MCV 100.0 (H) 82.0 - 92.0 fL [facility] MCH 32.8 (H) 27.0 - 32.0 pg [facility] MCHC 32.8 32.0 - 36.0 g/dL [facility] RDW 52.0 (H) 36.4 - 46.3 fL [facility] Platelet 170 150 - 400 K/uL [facility] Mean Platelet 10.3 9.4 - 12.4 fL [facility] Volume [facility] Percent NRBC 0.0 % [facility] Specimen Blood Performing Organization Address [facility] [place]/[facility] one Number [facility] [address] [place], [place] [id number] [phone] * POCT VBG POC docked device (07/06/2019 6:52 AM [facility] [employer]) Only the most recent of 3 results within the time period is included. pH, Silverio POC 7.45 (H) 7.33 - 7.43 [facility] HCO3, [place] POC 23 22 - 26 mmol/L [facility] TCO2 POC 24 21 - 32 mmol/L [facility] PO2, Venous POC 51 50 - 75 mm Hg [facility] pCO2,Silverio POC 32.3 (L) 38 - 50 mmHg [facility] Base Deficit, -1 [facility] Silver[facility] POC [facility] Sample Type IVENComment: Physician [facility] [place] Notified [facility] Lactic Acid POC 0.66 0.40 - 2.00 mmol/L [facility] % Sat, Silverio POC 88 % [facility] Specimen Blood, venous Performing Organization Address [facility] [place] one Number [facility] [address] [place], [place] [id number] * 12 LEAD EKG (07/06/2019 3:17 AM [facility] [employer]) 12 LEAD EKG FOR [facility] Test Date: 2019-07-06 Pat Name: DANIEL PARIKH Department: 5520 Room: [facility] Gender: F Payroll Administrative Assistant: [id number] : 1955 Requested By: AMEENA MANSFIELD Order Number: [id number] Reading MD: Dot Capone Measurements Intervals [place] Rate: 93 P: -6 [place]: 143 QRS: -21 QRSD: 149 T: 117 QT: 383 QTc: 479 Interpretive Statements SINUS RHYTHM LEFT BUNDLE BRANCH BLOCK [120+ ms QRS DURATION, 80+ ms Q/S IN V1/V2, 85+ ms R IN I/aVL/V5/V6] Reviewed by Electronically Signed On 07-06-2019 10:57:43 [facility] [employer] by Dot Capone Specimen Performing Organization Address City/State/Zipcode Ph one Number SMS * Gram-Pos Blood Culture (07/06/2019 2:52 AM [facility] [employer]) Staphylococcus Not Detected Not Detected [facility] Staph aureus Not Detected Not Detected [facility] Staph Detected (A)Comment: POSITIVE Not Detected [facility] epidermidis for the coagulase-negative [facility] staphylococcus, Staphylococcus epidermidis and methicillin-resistance. Detection determined by Verigene nucleic acid test. Staph Not Detected Not Detected [facility] lugdunensis [facility] Streptococcus Not Detected Not Detected [facility] Strep Not Detected Not Detected [facility] agalactiae [facility] Strep pyogenes Not Detected Not detected [facility] Strep Not Detected Not Detected [facility] pneumoniae [facility] Strep anginosus Not Detected Not Detected [facility] sp [facility] Entero faecalis Not Detected Not Detected [facility] Entero faecium Not Detected Not Detected [facility] Listeria Not Detected [facility] mecA Detected Not detected [facility] Specimen Blood - Hand, left Narrative Performed At This test is performed on Nanos[employer] Therapy System utilizing reverse [facility] athletic events scorer (RT), polymerase chain re action (PCR) and array hybridization, FDA cleared mPowaigene Gram-Positive Blood Cu lture Nucleic Acid Test for qualitative multiplex detection and identification of potentially pathogenic gram-positive bacteria directly on blood culture kaylin les identified as positive by continuous monitoring blood culture system and i ch contain gram-positive bacteria. "Not Detected" results for antimicrobial res istance genes should not be interpreted as confirming antimicrobial susceptibil ity of detected organisms. Antimicrobial resistance may be prese nt by mechanisms not detected by the BC-GP panel. Performing Organization Address [facility] one Number [facility] [address] [place] [address] * 12 LEAD EKG (07/06/2019 12:47 AM [facility] [employer]) 12 LEAD EKG FOR [facility] Test Date: 2019-07-06 Pat Name: DANIEL SABILLON Department: 5520 Room: 4A05 Gender: F Payroll Administrative Assistant: [id number] : 1955 Requested By: AMEENA MANSFIELD Order Number: [id number] Reading MD: Dot Capone Measurements Intervals [place] Rate: 93 P: -10 [place]: 146 QRS: -13 QRSD: 150 T: 125 QT: 391 QTc: 487 Interpretive Statements SINUS RHYTHM LEFT BUNDLE BRANCH BLOCK [120+ ms QRS DURATION, 80+ ms Q/S IN V1/V2, 85+ ms R IN I/aVL/V5/V6] Reviewed by Electronically Signed On 07-06-2019 10:57:51 [facility] [employer] by Dot Capone Specimen Performing Organization Address [facility] one Number [facility] * 12 LEAD EKG (07/05/2019 9:09 PM [facility] [employer]) 12 LEAD EKG FOR [facility] Test Date: 2019-07-05 Pat Name: DANIEL MCCORMICK [facility] ([place] [place]) Department: 5520 Room: 4A05 Gender: F Payroll Administrative Assistant: [id number] : 1955 Requested By: SEN Holloway Order Number: [id number] Reading MD: Dot Capone Measurements Intervals [place] Rate: 93 P: -10 [place]: 146 QRS: -35 QRSD: 154 T: 91 QT: 390 QTc: 487 Interpretive Statements SINUS RHYTHM POSSIBLE LEFT ATRIAL ENLARGEMENT [-0.1mV P WAVE IN V1/V2] MARKED LEFT AXIS DEVIATION [QRS AXIS < -30] LEFT BUNDLE BRANCH BLOCK [120+ ms QRS DURATION, 80+ ms Q/S IN V1/V2, 85+ ms R IN I/aVL/V5/V6] Electronically Signed On 07-06-2019 10:57:53 [facility] [employer] by Dot Capone Specimen Performing Organization Address City/State/Zipcode Ph one Number SMS after 04/14/2019 Insurance Type Payer Benefit Subscriber ID Effective Phone Address Plan / Dates Group MEDICARE MEDICARE xxxxxxxxxxx 2019- [phone] PART A & B Present [id number] [place] [address] [facility] FIN[employer]CIAL xxxxxxx 2019-2 [address] [facility] [place] [address] Advance Directives Date Inactivated Comments Code Status Date Activated 10/10/2019 3:34 PM Full Code 10/10/2019 6:02 AM 07/10/2019 4:34 PM Full Code 07/10/2019 11:48 AM 11/14/2018 4:43 PM Full Code 11/13/2018 4:36 PM 09/16/2018 3:19 PM Full Code 09/12/2018 2:37 AM 01/22/2018 5:13 PM Full Code 01/21/2018 6:07 PM
--- OUTSIDE RECORDS SUMMARY | 2020-04-14 23:44 | XMS REPORT | Continuity of Care Document ---
Author Author Formerly [facility] t Organization [facility] Address [facility] Sun [address] [place] [id number] Phone Unavailable Care Team Providers Care Jute Bag Clipper Name Role Phone Sommer MARQUEZ, H Nancy PCP Franco COX Attphys Unavailable ABRAHAM, JAD Attphys Unavailable Amie HURLEY Attphys Unavailable Ratna MARQUEZ, Michael Rios Attphys Janeth MARQUEZ, Nicki Jon Attphys Sommer MARQUEZ, Abbas Attphys Celia Martinez MD, Krystal Attphys [phone] Crystal [facility], Margi Attphys Unavailable Argelia MARQUEZ, Ariana Russell Attphys Raine MARQUEZ, Abimael Attphys Jermaine MARQUEZ, Amie Atkins Attphys Abner Julia Physician, Dinah Attphys [phone] Tyler CONN, Erica Attphys Unavailable Dusty RN, Mora Attphys Unavailable [place] Fellow(), Flaquita Garcia Attphys Kayla MARQUEZ, Guillermo Attphys Rivera MARQUEZ, Brigido Attphys Alejandro WEIGH BOX TENDER, G Kaelyn Attphys Jaydon MARQUEZ, Flaquita Sanchez Attphys Chilango Burrell Fellow(), A Samer Attphys Diomedes CONN, M Robyn Attphys Unavailable Payers Payer Name Policy Type Policy Number Effective Date Expiration Date Germain epps MEDICAREMEDICARE PART A & [id number], [place] [address] xxxxxxxxxxx 2019 00:00:00 [facility] PLANFINANCIAL ASSISTANCE PROGRAMxxx [id number] [place] [address] xxxxxxx 2019 00:00:00 10-16 23:59:[address] [facility] Problems Condition Name Condition Details Condition Category Status Onset Date Resolution Date Last Treatment Date Treating Clinician Comments Source Syncope Syncope Disease Active 2019-10-10 00:00:[address] [facility] Pneumonia Pneumonia Disease Active 2019-07-07 00:00:[address] [facility] Abdominal pain Abdominal pain Disease Active 2019-07-07 00:00:[address] [facility] Elevated CA-125 Elevated CA-125 Disease Active 2018-03-31 00:00:[address] [facility] Urinary incontinence Urinary incontinence Disease Active 00:00:[address] [facility] S/P right mastectomy S/P right mastectomy Disease Active 00:00:[address] 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 Breast cancer, stage 3 Breast cancer, stage 3 Disease Active 2017-02-27 00:00:[address] [facility] Breast hematoma Breast hematoma Disease Active [facility] Chest pain Chest pain Disease Active [facility] PE (pulmonary thromboembolism) PE (pulmonary thromboembolism) Disease Active 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 Pre-diabetes Pre-diabetes Disease Active [facility] Influenza B Influenza B Disease Active [facility] Acute on chronic congestive heart failure Acute on chr onic congestive heart failure Disease Active [facility] History of pulmonary embolism History of pulmonary embolism Disease Active [facility] Right upper lobe consolidation Right upper lobe consolidation Disease Active [facility] Left bundle branch block Left bundle branch block Disease Active 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 Peripheral polyneuropathy Peripheral polyneuropathy Disease Active [facility] Cough Cough Disease Active [facility] Pneumonia of left upper lobe due to infectious organis m Pneumonia of left upper lobe due to infectious organism Disease Active [facility] Shortness of breath Shortness of breath Disease Active [facility] Bacteremia Bacteremia Disease Active [facility] Allergies, Adverse Reactions, Alerts Allergy Name Allergy Type Status Severity Reaction(s) Onset Date Inacti ve Date Treating Clinician Comments Source Lisinopril Propensity to adverse reactions to drug Active 2018-03-11 00:00:[address] [facility] Amoxicillin Propensity to adverse reactions to drug Active Rash, Itching 2017-08-05 00:00:[address] [facility] Penicillins Propensity to adverse reactions to drug Active 2013-10-23 00:00:[address] [facility] Family History Family Member Diagnosis Comments Start Date Stop Date Source Natural mother Cancer [facility] Social History Social Habit Start Date Stop Date Quantity Comments Source Sex Assigned At [facility] Exposure to SARS-CoV-2 (event) Not sure [facility] Alcohol intake 2020-03-18 00:00:00 2020-03-18 00:00:00 Current drinker of alcohol (finding) [facility] History SDOH Food Worry 2018-12-01 00:00:00 2018-12-01 00:00:00 1 [facility] Food Scarcity 2018-12-01 00:00:00 2018-12-01 00:00:[address] [facility] Smoking Status Start Date Stop Date Source Never smoker [facility] Medications Ordered Medication Name Filled Medication Name Start Date Stop Da te Current Medication? Ordering Clinician Indication Dosage Frequency Signature (SIG) Comments Components Source fluticasone propionate (FLONASE) 50 mcg/actuation nasal spra y 2020-04-11 00:00:00 Yes Environmental allergies 2{spray} QD Use 2 Sprays by each nostril route daily. [facility] albuterol 90 mcg/actuation inhaler 2020-03-18 00:00:00 Yes 2{puff} Inhale 2 Puffs by mouth 4 times daily as needed for Wheezing. [facility] loratadine (CLARITIN) 10 mg tablet 2020-03-18 00:00:00 Yes 10mg QD Take 1 tablet by mouth daily. [facility] losartan (COZAAR) 25 mg tablet 2020-03-18 00:00:00 Yes Non-ischemic cardiomyopathy 12.5mg QD Take 0.5 tablets by mouth daily Needs to follow up (telemedicine) with pcp for more refills. [facility] mometasone (NASONEX) 50 mcg/actuation nasal spray 2020-03-18 00:00:00 2020-04-11 00:00:00 No 2{spray} QD Use 2 Sprays by each nostril route daily. [facility] albuterol (PROVENTIL) 2.5 mg /3 mL (0.083 %) nebulizer solut ion 2020-03-18 00:00:00 2020-03-18 23:59:00 No Environmental allergies 2.5mg Inhale 3 mL by mouth once for [address] [facility] loratadine (CLARITIN) 10 mg tablet 2020-02-19 00:00:00 00:00:00 No Congestion of both ears 10mg QD Take 1 tablet by mouth celestino ly. [facility] benzonatate (TESSALON PERLES) 100 mg capsule 2020-02-17 00:0 0:00 Yes Cough 100mg Take 1 capsule by mouth 2 times daily as needed for Cough. [facility] acetaminophen-codeine (TYLENOL/CODEINE #3) 300-30 mg per tab let 2020-02-17 00:00:00 Yes Malignant neoplasm of right breast, stag e 3 1{tbl} Take 1 tablet by mouth every 6 hours as needed for Pain. [facility] losartan (COZAAR) 25 mg tablet 2020-02-15 00:00:00 2020-02-19 1 00:00:00 No Non-ischemic cardiomyopathy 12.5mg QD Take 0.5 tab lets by mouth daily Needs to follow up (telemedicine) with pcp for more refills. [facility] talazoparib 0.25 mg cap 2020-01-20 00:00:00 Yes Malignant neoplasm of right breast, stage 3 .75mg Take 0.75 mg by mo uth Take 3 tablets of the 0.25 mg ( a total of 0.75 mg) DAILY. [facility] ronen benzonatate (TESSALON PERLES) 100 mg capsule 00:00:00 2020-02-17 00:00:00 No Cough 100mg Take 1 capsule by mouth 2 times daily as needed for Cough. [facility] loratadine (CLARITIN) 10 mg tablet 2019-11-24 00:00:00 00:00:00 No Congestion of both ears 10mg QD Take 1 tablet by mouth celestino ly. [facility] gabapentin (NEURONTIN) 300 mg capsule 2019-11-11 00:00:00 Yes Malignant neoplasm of right breast, stage 3 300mg Take 1 capsule by mouth [address] [facility] acetaminophen-codeine (TYLENOL/CODEINE #3) 300-30 mg per tab let 2019-11-11 00:00:00 2020-02-17 00:00:00 No Malignant neoplasm of right breast, stage 3 1{tbl} Take 1 tablet by mouth every 6 hours as needed for Mily n. [facility] gabapentin (NEURONTIN) 300 mg capsule 2019-11-03 00:00 :00 2019-11-11 00:00:00 No Malignant neoplasm of right breast, stage 3 300mg Take 1 capsule by mouth [address] [facility] benzonatate (TESSALON PERLES) 100 mg capsule 00:00:00 2019-10-17 23:59:00 No Cough 100mg Take 1 capsule by mouth 3 times daily as needed for up to 7 days for Cough. [facility] oseltamivir (TAMIFLU) 75 mg capsule 2019-10-10 00:00:0 0 2019-10-15 23:59:00 No Influenza B 75mg Q.5D Take 1 capsule by mouth 2 times li y for [address] [facility] heparin sodium,porcine/PF (HEPARIN, PORC INE, PF,) 1,000 unit/mL Soln IV (Home IV) 2019-10-10 00:00:00 2019-10-10 00:00:00 No Malignant neoplasm of right breast, stage 3 300U 0.3 mL by INTRA-CATHETER route every [address] [facility] heparin, porcine-PF injection 300 Units 10:00:00 2019-10-10 11:18:26 No Malignant neoplasm of right breast, stage [address] [facility] Miscellaneous Medical Supply Misc 2019-09-09 00:00:2019 00:00:00 No Malignant ne[facility] of right breast, stage [facility]; Combo Route) route PERMANENT PARKING DISABILITY. [facility] Miscellaneous Medical Supply [facility] 2019-08-24 00:00:00 Yes Malignant neoplasm of right breast, stage 3 by Mis c.(Non-Drug; Combo Route) route DISABILITY PARKING 2 PARKING PLACARDS. [facility] acetaminophen-codeine (TYLENOL/CODEINE #3) 300-30 mg per tab let 2019-08-24 00:00:00 2019-10-10 00:00:00 No Malignant neoplasm of right breast, stage 3 1{tbl} Take 1 tablet by mouth every 6 hours as needed for Mily n. [facility] gabapentin (NEURONTIN) 300 mg capsule 2019-07-31 00:00 :00 2019-11-03 00:00:00 No Malignant neoplasm of right breast, stage 3 300mg Take 1 capsule by mouth [address] [facility] benzonatate (TESSALON) 100 mg capsule 2019-07-22 00:00 :00 2019-08-10 23:59:00 No Pneumonia 100mg Take 1 capsule by mouth 3 times daily for 10 days For cough. [facility] benzonatate (TESSALON) 100 mg capsule 2019-07-10 00:00 :00 2019-07-22 00:00:00 No Pneumonia 100mg Take 1 capsule by mouth 3 times daily for 7 days For cough. [facility] doxycycline monohydrate (MONODOX) 100 mg capsule 2019-07-10 00:00:00 2019-07-12 23:59:00 No Pneumonia 100mg Take 1 capsule by mouth every 12 hours for [address] [facility] mometasone (NASONEX) 50 mcg/actuation nasal spray 2019-06-15 00:00:00 2020-03-18 00:00:00 No Congestion of both ears 2{spray} QD Use 2 Sprays by each nostril route daily. [facility] loratadine (CLARITIN) 10 mg tablet 2019-06-15 00:00:00 00:00:00 No Congestion of both ears 10mg QD Take 1 tablet by mouth celestino ly. [facility] ibuprofen (MOTRIN) 600 mg tablet 2019-06-15 00:00:00 2019-09 00:00:00 No Dental infection 600mg Take 1 tablet by mary th every 8 hours as needed for Pain or Fever > 100.5. [facility] chlorhexidine (PERIDEX) 0.12 % mouth wash 2018-08 00:00:00 2019-07-01 23:59:00 No Dental infection Swish wi th 1/2 oz of solution in mouth for 30 seconds and spit. Use twice daily.. [facility] clindamycin (CLEOCIN HCL) 300 mg capsule 2019-05 00:00:00 2019-06-27 23:59:00 No Dental infection 300mg Take 1 c apsule by mouth 3 times daily for [address] [facility] heparin, porcine-PF injection 300 Units 12:30:00 2019-06-10 12:59:[address] [facility] guaiFENesin SR (MUCINEX) 600 mg extended release tablet 2019-06-10 00:00:00 2019-10-10 00:00:00 No Malignant neoplasm of right breast, st age 3 600mg Q.5D Take 1 tablet by mouth [address] [facility] acetaminophen-codeine (TYLENOL/CODEINE #3) 300-30 mg per tab let 2019-06-10 00:00:00 2019-08-24 00:00:00 No Malignant neoplasm of right breast, stage 3 1{tbl} Take 1 tablet by mouth every 6 hours as needed for Mily n. [facility] furosemide (LASIX) 40 mg tablet 2019-05-19 00:00:00 Yes Chemotherapy induced cardiomyopathy 40mg Q.5D Take 1 tablet by mouth 2 times li y. [facility] gabapentin (NEURONTIN) 300 mg capsule 2019-04-29 00:00 :00 2019-07-31 00:00:00 No Malignant neoplasm of right breast, stage 3 300mg Take 1 capsule by mouth [address] [facility] benzonatate (TESSALON PERLES) 100 mg capsule 201 04-27-11 00:00:00 2019-05-06 23:59:00 No Metastatic breast cancer 100mg Take 1 capsule by mouth 3 times daily as needed for up to 7 days for Cough. [facility] talazoparib 0.25 mg cap 2019-04-01 00:00:00 Yes Malignant neoplasm of right breast, stage 3 .75mg Take 0.75 mg by mo uth Take 3 tablet of the 0.25 mg ( a total of 0.75 mg) DAILY. [facility] traMADol (ULTRAM) 50 mg tablet 2019-03-04 00:00:00 2019-09-20 2 00:00:00 No Fall, initial encounter 50mg Take 1 tablet by mouth every 6 hours as needed for up to 30 doses for Pain. [facility] losartan (COZAAR) 25 mg tablet 2018-12-10 00:00:00 2020-01-19 9 00:00:00 No Non-ischemic cardiomyopathy 12.5mg QD Take 0.5 tablets by mouth li y. [facility] promethazine (PHENERGAN) 25 mg tablet 2018-11-14 00:00:00 Yes Fall, initial encounter 25mg Take 1 tablet by [facility] every 6 hours as needed for Nausea or Vomiting. [facility] spironolactone (ALDACTONE) 25 mg tablet 2018-11-14 00:00:00 Yes Non- ischemic cardiomyopathy 12.5mg QD Take 1/2 (half) tablet by mouth da darrius. [facility] metoprolol succinate (TOPROL XL) 25 mg extended release tabl et 2018-11-14 00:00:00 Yes Diarrhea, unspecified type 12.5mg QD Take 1/2 tablet by mouth daily. [facility] albuterol 90 mcg/actuation inhaler 2018-11-14 00:00:00 00:00:00 No Acute URI 2{puff} Inhale 2 Puffs b y mouth 4 times daily as needed for Wheezing. [facility] gabapentin (NEURONTIN) 300 mg capsule 2018-11-14 00:00 :00 2019-04-29 00:00:00 No Malignant neoplasm of right breast, stage 3 300mg Take 1 capsule by mouth [address] [facility] Immunizations Ordered Immunization Name Filled Immunization Name Date Status Comments Source Tdap (Tetanus Toxoid, Reduced Diphtheria Toxoid And Acellular Pertussis, Absorbed) 2017-11-08 00:00:00 Completed [facility] ealt Influenza Vaccine, Seasonal, Injectable 2017-11-07 00:00:[address] [facility] Vital Signs Vital Name Observation Time Observation Value Comments Source Systolic blood pressure 2020-03-18 09:31:00 116 mm[Hg] [facility] Diastolic blood pressure 2020-03-18 09:31:00 70 mm[Hg] [facility] Heart rate 2020-03-18 09:31:00 97 /min formerly [facility] Body temperature 2020-03-18 09:31:00 36.61 Loan Nathan is [facility] Respiratory rate 2020-03-18 09:31:00 18 /min Nathan is [facility] Body height 2020-03-18 09:31:00 165.1 cm formerly [facility] Body weight 2020-03-18 09:31:00 102.967 kg formerly [facility] BMI 2020-03-18 09:31:00 37.77 kg/m2 formerly [facility] Oxygen saturation in Arterial blood by Pulse oximetry 03-18 09:31:00 98 /min [facility] Procedures Procedure Date / Time Performed Performing Clinician Sour e CBC/DIFF 2020-02-17 16:11:[address] [facility] COMPREHENSIVE METABOLIC PANEL 2020-02-17 16:11:[address] [facility] CBC 2020-02-17 16:11:[address] [facility] URINALYSIS 2020-01-14 16:05:[address] [facility] URINALYSIS 2020-01-14 16:05:[address] [facility] URINE CULTURE 2020-01-14 16:05:[address] [facility] TUMORIMAGE PET/CT SKUL-T 2019-12-31 11:55:[address] [facility] GLUCOSE POC 2019-12-31 09:37:00 Krystal Cox [facility] CBC/DIFF 2019-11-11 10:00:[address] [facility] COMPREHENSIVE METABOLIC PANEL 2019-11-11 10:00:[address] [facility] CBC 2019-11-11 10:00:[address] [facility] INFLUENZA DNA/RNA AMP PROBE, FLURSV 2019-10-10 10:15:[address] [facility] CT CHEST PE PROTOCOL 2019-10-10 04:28:[address] [facility] ECHG EKG PROC 12 LEAD EKG; TRACING ONLY 2019-10-10 02:12:[address] [facility] D-DIMER 2019-10-10 02:05:00 [facility] 2019-10[facility]10 02:05:00 Jermaine Lui [facility] XRAY CHEST 2 VIEWS 2019-10-09 21:10:30 Obdulia García ealth CREATININE POC 2019-10-09 19:18:00 Unknown, Provider Alok [facility] BMP POC 2019-10-09 19:15:00 Unknown, Provider Alok [facility] TROPONIN I POC 2019-10-09 19:06:00 Unknown, Provider Alok [facility] CBC/DIFF 2019-10-09 19:00:00 Obdulia García [facility] HIV AG/AB COMBO ROUTINE SCREENING 2019-10-09 19:00:00 Obdulia García [facility] CBC 2019-10-09 19:00:00 Obdulia García E[facility] EKG PROC 12 LEAD EKG; TRACING ONLY 2019-10-09 18:57:[address] [facility] CBC/DIFF 2019-09-21 16:07:00 Wild Hurley [facility] h CBC 2019-09-21 16:07:[address] [facility] COMPREHENSIVE METABOLIC PANEL 2019-09-21 14:34:[address] [facility] TUMORIMAGE PET/CT SKUL-T 2019-09-09 11:30:[address] [facility] GLUCOSE POC 2019-09-09 09:41:00 Yvonne Stout [facility] ealt CBC/DIFF 2019-07-22 12:17:[address] [facility] COMPREHENSIVE METABOLIC PANEL 2019-07-22 12:17:00 Glen Wilkerson ra [facility] CBC 2019-07-22 12:17:[address] [facility] CBC/DIFF 2019-07-10 03:36:00 Malcom Romero [facility] BASIC METABOLIC PANEL 2019-07-10 03:36:[address] [facility] CBC 2019-07-10 03:36:00 Malcom Romero [facility] CBC/DIFF 2019-07-09 03:47:00 Malcom Romero [facility] BASIC METABOLIC PANEL 2019-07-09 03:47:[address] [facility] CBC 2019-07-09 03:47:[address] [facility] ECHG EKG PROC 12 LEAD EKG; TRACING ONLY 2019-07-08 09:39:[address] [facility] CBC/DIFF 2019-07-08 03:29:00 NickMalcom [facility] BASIC METABOLIC PANEL 2019-07-08 03:29:[address] [facility] CBC 2019-07-08 03:29:[address] [facility] ECHG NON-INVASIVE PROC ECHOCARDIOGRAM 2-D W/O CONTRAST (PROSOLVE) 2019-07-07 14:12:00 SarthakWalt [facility] BLOOD CULTURE 2019-07-07 11:25:00 NickMalcom [facility] BLOOD CULTURE 2019-07-07 10:33:00 NickMalcom [facility] CBC (WITHOUT DIFFERENTIAL) 2019-07-07 03:46:00 Sarthak [facility] BASIC METABOLIC PANEL 2019-07-07 03:46:00 Sarthak [facility] INFUSION PUMP 2019-07-06 07:44:40 KhanBrigido mendoza [facility] POC 2019-07-06 06:52:00 Khan [facility] VBG POC 2019-07-06 04:51:00 Guillermo Mansfield [facility] TROPONIN I POC 2019-07-06 03:29:00 Randy Mansfieldaminata [facility] ECHG EKG PROC 12 LEAD EKG; TRACING ONLY 2019-07-06 03:17:[address] [facility] TROPONIN I POC 2019-07-06 03:08:00 [facility] 2019-07-06 02:52:00 Josiah Jocelin Caceres [facility] GRAM-POS BLOOD CULTURE 2019-07-06 02:52:00 Jocelin Rahman [facility] POC 2019-07-06 02:52:00 Randy Mansfieldaminata [facility] lth TROPONIN I POC 2019-07-06 00:58:00 KaylaRandy morrisseyaminata [facility] ECHG EKG PROC 12 LEAD EKG; TRACING ONLY 2019-07-06 00:47:[address] [facility] TROPONIN I POC 2019-07-06 00:36:00 Guillermo Mansfield Alok garth [facility] CT CHEST PE PROTOCOL 2019-07-06 00:34:23 Julia Maguire [facility] URINALYSIS 2019-07-05 23:05:00 Julia Maguire [facility] alth URINALYSIS 2019-07-05 23:05:00 Julia Maguire [facility] alth XRAY CHEST 2 VIEWS 2019-07-05 23:02:[address] [facility] BMP POC 2019-07-05 21:20:00 Unknown, Provider Alok Vyas [facility] TROPONIN I POC 2019-07-05 21:18:00 Unknown, Provider Alok Vyas [facility] CBC/DIFF 2019-07-05 21:15:00 Tayler Zhang alth CBC 2019-07-05 21:15:00 Tayler Zhang [facility] alth ECHG EKG PROC 12 LEAD EKG; TRACING ONLY 2019-07-05 21:09:[address] [facility] CBC/DIFF 2019-06-10 12:15:00 Radha Bertrand alth COMPREHENSIVE METABOLIC PANEL 2019-06-10 12:15:[address] [facility] CBC 2019-06-10 12:15:00 Radha Bertrand alth CBC/DIFF 2019-04-29 11:51:00 Radha Bertrand [facility] alth COMPREHENSIVE METABOLIC PANEL 2019-04-29 11:51:[address] [facility] CBC 2019-04-29 11:51:00 Radha Bertrand alth TUMORIMAGE PET/CT SKUL-T 2019-04-22 09:27:[address] [facility] GLUCOSE POC 2019-04-22 07:37:00 Unknown, Provider Alok [facility] Plan of Care Planned Activity Planned Date Details Comments Source Future Scheduled Test 2020-05-19 00:00:00 IMM Influenza Seas onal May to October (>/= 19 yrs) [code = IMM Influenza Seasonal May to October (>/= 19 yrs)] [facility] Future Scheduled Test 2007-12-09 00:00:00 Screening for michelle heredia neoplasm of colon (procedure) [code = 432919679] [facility] Future Scheduled Test 1978 00:00:00 Screening for michelle gnant neoplasm of cervix (procedure) [code = 158064766] [facility] Encounters Start Date/Time End Date/Time Encounter Type Admission Type [facility] Care Department Encounter ID Source 2019-07-10 14:05:52 Inpatient [facility] [id number] [facility] 2019-07-10 08:00:38 Inpatient [facility] [id number] [facility] 2019-07-09 00:00:00 Inpatient [facility] [id number] [facility] 2018-09-15 10:40:08 Inpatient [facility] [id number] [facility] 2018-09-15 00:00:00 Inpatient [facility] [id number] [facility] 2018-09-15 00:00:00 Inpatient [facility] [id number] [facility] 2018-09-12 12:20:47 Inpatient [facility] [id number] [facility] 2018-09-12 05:15:07 Inpatient [facility] [id number] [facility] 2020-07-26 00:00:00 2020-07-26 00:00:00 Outpatient [facility] [id number] [facility] 2020-05-02 00:00:00 2020-05-02 00:00:00 Outpatient [facility] [id number] [facility] 2020-04-29 00:00:00 2020-04-29 00:00:00 Outpatient ALIA ROSARIO [facility] [id number] [facility] 2020-04-13 00:00:00 2020-04-13 00:00:00 Outpatient WILD HURLEY [facility] [id number] [facility] 2020-04-13 00:00:00 2020-04-13 00:00:00 Outpatient WILD HURLEY [facility] [id number] [facility] 2020-03-18 09:36:17 2020-03-18 10:27:38 Outpatient ELIZABETH PLAZA [facility] [id number] [facility] 2020-03-16 06:46:52 2020-03-16 17:32:18 Outpatient WILD HURLEY [facility] [id number] [facility] 2020-03-16 00:00:00 2020-03-16 00:00:00 Outpatient [facility] [id number] [facility] 2020-02-26 00:00:00 2020-02-26 00:00:00 Outpatient [facility] [id number] [facility] 2020-02-17 16:08:38 2020-02-17 16:08:38 Outpatient [facility] [id number] [facility] 2020-02-17 14:42:54 2020-02-17 14:42:54 Outpatient [facility] [id number] [facility] 2020-02-10 00:00:00 2020-02-10 00:00:00 Outpatient [facility] [id number] [facility] 2020-02-10 00:00:00 2020-02-10 00:00:00 Outpatient [facility] [id number] [facility] 2020-01-14 15:24:35 2020-01-14 15:24:35 Outpatient [facility] [id number] [facility] 2020-01-14 00:00:00 2020-01-14 00:00:00 Outpatient [facility] [id number] [facility] 2020-01-06 06:40:41 2020-01-06 06:40:41 Outpatient [facility] [id number] [facility] 2020-01-06 00:00:00 2020-01-06 00:00:00 Outpatient [facility] [id number] [facility] 2020-01-05 00:00:00 2020-01-05 00:00:00 Outpatient [facility] [id number] [facility] 2020-01-04 00:00:00 2020-01-04 00:00:00 Outpatient [facility] [id number] [facility] 2019-12-31 09:13:21 2019-12-31 09:13:21 Outpatient [facility] [id number] [facility] 2019-11-11 10:24:40 2019-11-11 10:24:40 Outpatient [facility] [id number] [facility] 2019-11-11 10:00:05 2019-11-11 10:00:05 Outpatient [facility] [id number] [facility] 2019-11-09 00:00:00 2019-11-09 00:00:00 Outpatient [facility] [id number] [facility] 2019-10-10 04:06:28 2019-10-10 04:06:28 Emergency [facility] [id number] [facility] 2019-10-09 23:36:39 2019-10-09 23:36:39 [facility]patient [facility] [id number] [facility] 2019-10-09 20:59:16 2019-10-09 20:59:16 Emergency [facility] [id number] [facility] 2019-09-21 14:23:06 2019-09-21 14:23:06 Outpatient [facility] [id number] [facility] 2019-09-16 15:11:31 2019-09-16 15:11:31 Outpatient [facility] [id number] [facility] 2019-09-16 00:00:00 2019-09-16 00:00:00 Outpatient [facility] [id number] [facility] 2019-09-09 09:33:05 2019-09-09 09:33:05 Outpatient [facility] [id number] [facility] 2019-09-09 09:25:16 2019-09-09 09:25:16 Outpatient [facility] [id number] [facility] 2019-09-02 00:00:00 2019-09-02 00:00:00 Outpatient [facility] [id number] [facility] 2019-07-27 13:02:51 2019-07-27 13:02:51 Outpatient [facility] [id number] [facility] 2019-07-22 12:32:33 2019-07-22 12:32:33 Outpatient [facility] [id number] [facility] 2019-07-22 12:16:26 2019-07-22 12:16:26 Outpatient [facility] [id number] [facility] 2019-07-22 11:58:35 2019-07-22 11:58:35 Outpatient [facility] [id number] [facility] 2019-07-20 00:00:00 2019-07-20 00:00:00 Outpatient [facility] [id number] [facility] 2019-07-07 14:36:25 2019-07-07 14:36:25 Outpatient [facility] [id number] [facility] 2019-07-05 23:45:01 2019-07-05 23:45:01 Emergency [facility] [id number] [facility] 2019-07-05 22:40:26 2019-07-05 22:40:26 Emergency [facility] [id number] [facility] 2019-07-05 21:09:19 2019-07-05 21:09:19 [facility]patient [facility] [id number] [facility] 2019-06-23 00:00:00 2019-06-23 00:00:00 Outpatient [facility] [id number] [facility] 2019-06-15 16:09:2019-06-15 16:09:09 Outpatient [facility] [id number] [facility] 2019-06-10 12:59:14 2019-06-10 12:59:14 Outpatient [facility] [id number] [facility] 2019-06-10 12:13:15 2019-06-10 12:13:15 Outpatient [facility] [id number] [facility] 2019-06-10 12:12:25 2019-06-10 12:12:25 Outpatient [facility] [id number] [facility] 2019-06-10 00:00:00 2019-06-10 00:00:00 Outpatient [facility] [id number] [facility] 2019-06-04 00:00:00 2019-06-04 00:00:00 Outpatient [facility] [id number] [facility] 2019-05-19 09:48:59 2019-05-19 09:48:59 Outpatient [facility] [id number] [facility] 2019-04-29 12:43:51 2019-04-29 12:43:51 Outpatient [facility] [id number] [facility] 2019-04-29 11:49:38 2019-04-29 11:49:38 Outpatient [facility] [id number] [facility] 2019-04-29 00:00:00 2019-04-29 00:00:00 Outpatient [facility] [id number] [facility] 2019-04-29 00:00:00 2019-04-29 00:00:00 Outpatient [facility] [id number] [facility] 2019-04-22 10:54:37 2019-04-22 10:54:37 Outpatient [facility] [id number] [facility] 2019-04-22 07:23:46 2019-04-22 07:23:46 Outpatient [facility] [id number] [facility] 2019-04-14 00:00:00 2019-04-14 00:00:00 Outpatient [facility] [id number] [facility] 2019-04-13 14:35:33 2019-04-13 14:35:33 Outpatient [facility] [id number] [facility] 2019-04-01 14:33:57 2019-04-01 14:33:57 Outpatient [facility] [id number] [facility] 2019-04-01 13:32:15 2019-04-01 13:32:15 Outpatient [facility] [id number] [facility] 2019-03-18 13:16:40 2019-03-18 13:16:40 Outpatient [facility] [id number] [facility] 2019-03-10 00:00:00 2019-03-10 00:00:00 Outpatient [facility] [id number] [facility] 2019-03-05 00:00:00 2019-03-05 00:00:00 Outpatient [facility] [id number] [facility] 2019-03-04 15:23:42 2019-03-04 15:23:42 Outpatient [facility] [id number] [facility] 2019-03-04 14:26:05 2019-03-04 14:26:05 Outpatient [facility] [id number] [facility] 2019-03-04 00:00:00 2019-03-04 00:00:00 Outpatient [facility] [id number] [facility] 2019-02-27 11:38:00 2019-02-27 11:38:00 Outpatient [facility] [id number] [facility] 2019-02-04 15:12:16 2019-02-04 15:12:16 Outpatient [facility] [id number] [facility] 2019-02-04 14:42:19 2019-02-04 14:42:19 Outpatient [facility] [id number] [facility] 2019-01-30 00:00:00 2019-01-30 00:00:00 Outpatient [facility] [id number] [facility] 2019-01-23 00:00:00 2019-01-23 00:00:00 Outpatient [facility] [id number] [facility] 2019-01-22 07:10:56 2019-01-22 07:10:56 Outpatient [facility] [id number] [facility] 2019-01-20 08:45:56 2019-01-20 08:45:56 Outpatient [facility] [id number] [facility] 2019-01-07 15:10:34 2019-01-07 15:10:34 Outpatient [facility] [id number] [facility] 2019-01-07 14:20:02 2019-01-07 14:20:02 Outpatient [facility] [id number] [facility] 2018-12-30 00:00:00 2018-12-30 00:00:00 Outpatient [facility] [id number] [facility] 2018-12-18 00:00:00 2018-12-18 00:00:00 Outpatient [facility] [id number] [facility] 2018-12-10 13:10:06 2018-12-10 13:10:06 Outpatient [facility] [id number] [facility] 2018-12-10 12:35:08 2018-12-10 12:35:08 Outpatient [facility] [id number] [facility] 2018-12-01 14:20:39 2018-12-01 14:20:39 Outpatient [facility] [id number] [facility] 2018-11-13 05:24:00 2018-11-13 05:24:00 Emergency [facility] [id number] [facility] 2018-11-13 04:35:17 2018-11-13 04:35:17 Emergency [facility] [id number] [facility] 2018-11-13 04:27:48 2018-11-13 04:27:48 Emergency [facility] [id number] [facility] 2018-11-13 04:02:06 2018-11-13 04:02:06 Outpatient [facility] [id number] [facility] 2018-11-13 00:00:00 2018-11-13 00:00:00 Outpatient [facility] [id number] [facility] 2018-11-12 15:35:11 2018-11-12 15:35:11 Outpatient [facility] [id number] [facility] 2018-11-06 00:00:00 2018-11-06 00:00:00 Outpatient [facility] [id number] [facility] 2018-11-05 00:00:00 2018-11-05 00:00:00 Outpatient [facility] [id number] [facility] 2018-11-03 00:00:00 2018-11-03 00:00:00 Outpatient [facility] [id number] [facility] 2018-10-30 12:16:53 2018-10-30 12:16:53 Outpatient [facility] [id number] [facility] 2018-10-30 10:43:11 2018-10-30 10:43:11 Outpatient [facility] [id number] [facility] 2018-10-30 08:40:52 2018-10-30 08:40:52 Outpatient [facility] [id number] [facility] 2018-10-30 00:00:00 2018-10-30 00:00:00 Outpatient [facility] [id number] [facility] 2018-10-30 00:00:00 2018-10-30 00:00:00 Outpatient [facility] [id number] [facility] 2018-10-29 00:00:00 2018-10-29 00:00:00 Outpatient [facility] [id number] [facility] 2018-10-15 00:00:00 2018-10-15 00:00:00 Outpatient [facility] [id number] [facility] 2018-10-08 13:45:15 2018-10-08 13:45:15 Outpatient [facility] [id number] [facility] 2018-10-07 13:28:51 2018-10-07 13:28:51 Outpatient [facility] [id number] [facility] 2018-10-01 00:00:00 2018-10-01 00:00:00 Outpatient [facility] [id number] [facility] 2018-09-26 16:07:08 2018-09-26 16:07:08 Outpatient [facility] [id number] [facility] 2018-09-25 06:24:58 2018-09-25 06:24:58 Emergency [facility] [id number] [facility] 2018-09-22 08:51:30 2018-09-22 08:51:30 Outpatient [facility] [id number] [facility] 2018-09-17 14:00:10 2018-09-17 14:00:10 Outpatient [facility] [id number] [facility] 2018-09-17 13:30:55 2018-09-17 13:30:55 Outpatient [facility] [id number] [facility] 2018-09-12 00:29:09 2018-09-12 00:29:09 Emergency [facility] [id number] [facility] 2018-09-12 00:16:58 2018-09-12 00:16:58 Emergency [facility] [id number] [facility] 2018-09-11 23:54:36 2018-09-11 23:54:36 Inpatient [facility] [id number] [facility] 2018-09-11 22:39:46 2018-09-11 22:39:46 Emergency [facility] [id number] [facility] 2018-09-03 14:15:50 2018-09-03 14:15:50 Outpatient [facility] [id number] [facility] 2018-08-27 00:00:00 2018-08-27 00:00:00 Outpatient [facility] [id number] [facility] 2018-08-13 00:00:00 2018-08-13 00:00:00 Outpatient [facility] [id number] [facility] 2018-07-25 14:08:21 2018-07-25 14:08:21 Outpatient [facility] [id number] [facility] 2018-07-21 00:00:00 2018-07-21 00:00:00 Outpatient [facility] [id number] [facility] 2018-07-16 13:29:01 2018-07-16 13:29:01 Outpatient [facility] [id number] [facility] 2018-07-16 11:52:31 2018-07-16 11:52:31 Outpatient [facility] [id number] [facility] 2018-06-25 00:00:00 2018-06-25 00:00:00 Outpatient [facility] [id number] [facility] 2018-06-18 00:00:00 2018-06-18 00:00:00 Outpatient [facility] [id number] [facility] 2018-06-02 19:17:26 2018-06-02 19:17:26 Outpatient [facility] [id number] [facility] 2018-05-21 10:57:38 2018-05-21 10:57:38 Outpatient [facility] [id number] [facility] 2018-05-19 00:00:00 2018-05-19 00:00:00 Outpatient [facility] [id number] [facility] 2018-05-01 00:00:00 2018-05-01 00:00:00 Outpatient [facility] [id number] [facility] 2018-04-18 00:00:00 2018-04-18 00:00:00 Outpatient [facility] [id number] [facility] 2018-04-11 00:00:00 2018-04-11 00:00:00 Outpatient [facility] [id number] [facility] 2018-04-09 07:38:46 2018-04-09 07:38:46 Outpatient [facility] [id number] [facility] 2018-04-08 08:46:58 2018-04-08 08:46:58 Outpatient [facility] [id number] [facility] 2018-04-08 08:46:47 2018-04-08 08:46:47 Outpatient [facility] [id number] [facility] 2018-04-08 00:00:00 2018-04-08 00:00:00 Outpatient [facility] [id number] [facility] 2018-04-04 00:00:00 2018-04-04 00:00:00 Outpatient [facility] [id number] [facility] 2018-04-01 12:52:05 2018-04-01 12:52:05 Outpatient [facility] [id number] [facility] 2018-04-01 11:42:32 2018-04-01 11:42:32 Outpatient [facility] [id number] [facility] 2018-04-01 00:00:00 2018-04-01 00:00:00 Outpatient [facility] [id number] [facility] 2018-03-31 11:15:52 2018-03-31 11:15:52 Outpatient [facility] [id number] [facility] 2018-03-31 10:08:02 2018-03-31 10:08:02 Outpatient [facility] [id number] [facility] 2018-03-26 12:54:40 2018-03-26 12:54:40 Outpatient [facility] [id number] [facility] 2018-03-26 12:27:21 2018-03-26 12:27:21 Outpatient [facility] [id number] [facility] 2018-03-24 00:00:00 2018-03-24 00:00:00 Outpatient [facility] [id number] [facility] 2018-03-20 01:20:09 2018-03-20 01:20:09 Emergency [facility] [id number] [facility] 2018-03-20 00:39:01 2018-03-20 00:39:01 Emergency [facility] [id number] [facility] 2018-03-20 00:08:26 2018-03-20 00:08:26 Emergency [facility] [id number] [facility] 2018-03-19 23:53:51 2018-03-19 23:53:51 Emergency [facility] [id number] [facility] 2018-03-19 08:15:41 2018-03-19 08:15:41 Outpatient [facility] [id number] [facility] 2018-03-11 09:04:02 2018-03-11 09:04:02 Outpatient [facility] [id number] [facility] 2018-03-11 08:14:48 2018-03-11 08:14:48 Outpatient [facility] [id number] [facility] 2018-03-03 00:00:00 2018-03-03 00:00:00 Outpatient [facility] [id number] [facility] 2018-02-26 15:05:39 2018-02-26 15:05:39 Outpatient [facility] [id number] [facility] 2018-02-26 14:45:26 2018-02-26 14:45:26 Outpatient [facility] [id number] [facility] 2018-02-12 00:00:00 2018-02-12 00:00:00 Outpatient [facility] [id number] [facility] 2018-02-10 09:12:00 2018-02-10 09:12:00 Outpatient [facility] [id number] [facility] 2018-02-10 00:00:00 2018-02-10 00:00:00 Outpatient [facility] [id number] [facility] 2018-02-06 00:00:00 2018-02-06 00:00:00 Outpatient [facility] [id number] [facility] 2018-02-05 00:00:00 2018-02-05 00:00:00 Outpatient [facility] [id number] [facility] 2018-02-05 00:00:00 2018-02-05 00:00:00 Outpatient [facility] [id number] [facility] 2018-01-31 00:00:00 2018-01-31 00:00:00 Outpatient [facility] [id number] [facility] 2018-01-29 12:40:15 2018-01-29 12:40:15 Outpatient [facility] [id number] [facility] 2018-01-29 11:52:45 2018-01-29 11:52:45 Outpatient [facility] [id number] [facility] 2018-01-21 13:55:56 2018-01-21 13:55:56 Outpatient [facility] [id number] [facility] 2018-01-21 00:00:00 2018-01-21 00:00:00 Outpatient [facility] [id number] [facility] 2018-01-20 21:47:56 2018-01-20 21:47:56 Outpatient [facility] [id number] [facility] 2018-01-20 17:56:52 2018-01-20 17:56:52 Emergency [facility] [id number] [facility] 2018-01-20 17:52:20 2018-01-20 17:52:20 Emergency [facility] [id number] [facility] 2018-01-20 17:06:39 2018-01-20 17:06:39 Outpatient [facility] [id number] [facility] 2018-01-20 00:00:00 2018-01-20 00:00:00 Outpatient [facility] [id number] [facility] 2018-01-20 00:00:00 2018-01-20 00:00:00 Outpatient [facility] [id number] [facility] 2018-01-20 00:00:00 2018-01-20 00:00:00 Outpatient [facility] [id number] [facility] 2018-01-20 00:00:00 2018-01-20 00:00:00 Outpatient [facility] [id number] [facility] 2018-01-15 14:02:24 2018-01-15 14:02:24 Outpatient [facility] [id number] [facility] 2018-01-15 09:33:10 2018-01-15 09:33:10 Outpatient [facility] [id number] [facility] 2018-01-15 00:00:00 2018-01-15 00:00:00 Outpatient [facility] [id number] [facility] 2018-01-14 00:00:00 2018-01-14 00:00:00 Outpatient [facility] [id number] [facility] 2018-01-02 12:53:46 2018-01-02 12:53:46 Outpatient [facility] [id number] [facility] 2017-12-30 14:58:10 2017-12-30 14:58:10 Outpatient [facility] [id number] [facility] 2017-12-26 08:22:00 2017-12-26 08:22:00 Outpatient [facility] [id number] [facility] 2017-12-25 10:07:47 2017-12-25 10:07:47 Outpatient [facility] [id number] [facility] 2017-12-25 08:16:00 2017-12-25 08:16:00 Outpatient [facility] [id number] [facility] 2017-12-25 07:56:51 2017-12-25 07:56:51 Outpatient [facility] [id number] [facility] 2017-12-25 00:00:00 2017-12-25 00:00:00 Outpatient [facility] [id number] [facility] 2017-12-25 00:00:00 2017-12-25 00:00:00 Outpatient [facility] [id number] [facility] 2017-12-25 00:00:00 2017-12-25 00:00:00 Outpatient [facility] [id number] [facility] 2017-12-24 00:00:00 2017-12-24 00:00:00 Outpatient [facility] [id number] [facility] 2017-12-23 08:34:33 2017-12-23 08:34:33 Outpatient [facility] [id number] [facility] 2017-12-23 08:04:00 2017-12-23 08:04:00 Outpatient [facility] [id number] [facility] 2017-12-20 00:00:00 2017-12-20 00:00:00 Outpatient [facility] [id number] [facility] 2017-12-20 00:00:00 2017-12-20 00:00:00 Outpatient [facility] [id number] [facility] 2017-12-20 00:00:00 2017-12-20 00:00:00 Outpatient [facility] [id number] [facility] 2017-12-19 07:54:00 2017-12-19 07:54:00 Outpatient [facility] [id number] [facility] 2017-12-19 00:00:00 2017-12-19 00:00:00 Outpatient [facility] [id number] [facility] 2017-12-18 08:17:00 2017-12-18 08:17:00 Outpatient [facility] [id number] [facility] 2017-12-17 09:50:46 2017-12-17 09:50:46 Outpatient [facility] [id number] [facility] 2017-12-16 00:00:00 2017-12-16 00:00:00 Outpatient [facility] [id number] [facility] 2017-12-16 00:00:00 2017-12-16 00:00:00 Outpatient [facility] [id number] [facility] 2017-12-13 08:24:00 2017-12-13 08:24:00 Outpatient [facility] [id number] [facility] 2017-12-12 08:13:00 2017-12-12 08:13:00 Outpatient [facility] [id number] [facility] 2017-12-11 08:23:00 2017-12-11 08:23:00 Outpatient [facility] [id number] [facility] 2017-12-10 08:29:00 2017-12-10 08:29:00 Outpatient [facility] [id number] [facility] 2017-12-09 13:40:27 2017-12-09 13:40:27 Outpatient [facility] [id number] [facility] 2017-12-09 08:57:00 2017-12-09 08:57:00 Outpatient [facility] [id number] [facility] 2017-12-09 08:23:00 2017-12-09 08:23:00 Outpatient [facility] [id number] [facility] 2017-12-06 08:11:00 2017-12-06 08:11:00 Outpatient [facility] [id number] [facility] 2017-12-05 00:00:00 2017-12-05 00:00:00 Outpatient [facility] [id number] [facility] 2017-12-04 09:22:00 2017-12-04 09:22:00 Outpatient [facility] [id number] [facility] 2017-12-03 09:19:00 2017-12-03 09:19:00 Outpatient [facility] [id number] [facility] 2017-12-02 10:22:00 2017-12-02 10:22:00 Outpatient [facility] [id number] [facility] 2017-12-02 09:21:00 2017-12-02 09:21:00 Outpatient [facility] [id number] [facility] 2017-11-29 10:29:00 2017-11-29 10:29:00 Outpatient [facility] [id number] [facility] 2017-11-28 08:16:00 2017-11-28 08:16:00 Outpatient [facility] [id number] [facility] 2017-11-27 08:28:00 2017-11-27 08:28:00 Outpatient [facility] [id number] [facility] 2017-11-26 08:21:00 2017-11-26 08:21:00 Outpatient [facility] [id number] [facility] 2017-11-25 09:57:00 2017-11-25 09:57:00 Outpatient [facility] [id number] [facility] 2017-11-25 08:14:00 2017-11-25 08:14:00 Outpatient [facility] [id number] [facility] 2017-11-22 00:00:00 2017-11-22 00:00:00 Outpatient [facility] [id number] [facility] 2017-11-21 00:00:00 2017-11-21 00:00:00 Outpatient [facility] [id number] [facility] 2017-11-20 00:00:00 2017-11-20 00:00:00 Outpatient [facility] [id number] [facility] 2017-11-19 00:00:00 2017-11-19 00:00:00 Outpatient [facility] [id number] [facility] 2017-11-18 15:19:56 2017-11-18 15:19:56 Outpatient [facility] [id number] [facility] 2017-11-18 13:29:00 2017-11-18 13:29:00 Outpatient [facility] [id number] [facility] 2017-11-18 00:00:00 2017-11-18 00:00:00 Outpatient [facility] [id number] [facility] 2017-11-15 07:52:00 2017-11-15 07:52:00 Outpatient [facility] [id number] [facility] 2017-11-14 08:37:00 2017-11-14 08:37:00 Outpatient [facility] [id number] [facility] 2017-11-13 09:10:00 2017-11-13 09:10:00 Outpatient [facility] [id number] [facility] 2017-11-12 13:07:00 2017-11-12 13:07:00 Outpatient [facility] [id number] [facility] 2017-11-11 09:40:00 2017-11-11 09:40:00 Outpatient [facility] [id number] [facility] 2017-11-11 09:08:00 2017-11-11 09:08:00 Outpatient [facility] [id number] [facility] 2017-11-08 09:00:00 2017-11-08 09:00:00 Outpatient [facility] [id number] [facility] 2017-11-08 00:00:00 2017-11-08 00:00:00 Outpatient [facility] [id number] [facility] 2017-11-07 16:55:00 2017-11-07 16:55:00 Outpatient [facility] [id number] [facility] 2017-11-07 15:15:59 2017-11-07 15:15:59 Outpatient [facility] [id number] [facility] 2017-11-06 15:34:00 2017-11-06 15:34:00 Outpatient [facility] [id number] [facility] 2017-11-05 14:06:00 2017-11-05 14:06:00 Outpatient [facility] [id number] [facility] 2017-10-28 12:47:14 2017-10-28 12:47:14 Outpatient [facility] [id number] [facility] 2017-10-25 14:58:00 2017-10-25 14:58:00 Outpatient [facility] [id number] [facility] 2017-10-23 14:19:31 2017-10-23 14:19:31 Outpatient [facility] [id number] [facility] 2017-10-23 14:16:07 2017-10-23 14:16:07 Outpatient [facility] [id number] [facility] 2017-10-23 12:50:29 2017-10-23 12:50:29 Outpatient [facility] [id number] [facility] 2017-10-17 10:58:00 2017-10-17 10:58:00 Outpatient [facility] [id number] [facility] 2017-10-16 14:00:26 2017-10-16 14:00:26 Outpatient [facility] [id number] [facility] 2017-10-15 14:41:56 2017-10-15 14:41:56 Outpatient [facility] [id number] [facility] 2017-10-09 14:28:23 2017-10-09 14:28:23 Outpatient [facility] [id number] [facility] 2017-10-07 11:46:21 2017-10-07 11:46:21 Outpatient [facility] [id number] [facility] 2017-10-07 10:17:40 2017-10-07 10:17:40 Outpatient [facility] [id number] [facility] 2017-10-02 16:19:02 2017-10-02 16:19:02 Outpatient [facility] [id number] [facility] 2017-09-27 08:23:01 2017-09-27 08:23:01 Outpatient [facility] [id number] [facility] 2017-09-27 07:14:50 2017-09-27 07:14:50 Outpatient [facility] [id number] [facility] 2017-09-25 13:59:29 2017-09-25 13:59:29 Outpatient [facility] [id number] [facility] 2017-09-25 13:01:15 2017-09-25 13:01:15 Outpatient [facility] [id number] [facility] 2017-09-25 11:40:49 2017-09-25 11:40:49 Outpatient [facility] [id number] [facility] 2017-09-18 00:00:00 2017-09-18 00:00:00 Outpatient [facility] [id number] [facility] 2017-09-18 00:00:00 2017-09-18 00:00:00 Outpatient [facility] [id number] [facility] 2017-09-12 10:55:00 2017-09-12 10:55:00 Outpatient [facility] [id number] [facility] 2017-09-12 00:00:00 2017-09-12 00:00:00 Outpatient [facility] [id number] [facility] 2017-09-12 00:00:00 2017-09-12 00:00:00 Outpatient [facility] [id number] [facility] 2017-09-11 00:00:00 2017-09-11 00:00:00 Outpatient [facility] [id number] [facility] 2017-09-05 12:11:23 2017-09-05 12:11:23 Outpatient [facility] [id number] [facility] 2017-09-05 10:25:29 2017-09-05 10:25:29 Outpatient [facility] [id number] [facility] 2017-09-05 00:00:00 2017-09-05 00:00:00 Outpatient [facility] [id number] [facility] 2017-08-30 13:24:17 2017-08-30 13:24:17 Outpatient [facility] [id number] [facility] 2017-08-29 00:00:00 2017-08-29 00:00:00 Outpatient [facility] [id number] [facility] 2017-08-28 14:33:19 2017-08-28 14:33:19 Outpatient [facility] [id number] [facility] 2017-08-28 13:50:30 2017-08-28 13:50:30 Outpatient [facility] [id number] [facility] 2017-08-28 00:00:00 2017-08-28 00:00:00 Outpatient [facility] [id number] [facility] 2017-08-28 00:00:00 2017-08-28 00:00:00 Outpatient [facility] [id number] [facility] 2017-08-28 00:00:00 2017-08-28 00:00:00 Outpatient [facility] [id number] [facility] 2017-08-28 00:00:00 2017-08-28 00:00:00 Outpatient [facility] [id number] [facility] 2017-08-28 00:00:00 2017-08-28 00:00:00 Outpatient [facility] [id number] [facility] 2017-08-28 00:00:00 2017-08-28 00:00:00 Outpatient [facility] [id number] [facility] 2017-08-27 13:02:26 2017-08-27 00:00:00 Inpatient [facility] [id number] [facility] 2017-08-26 00:00:00 2017-08-26 00:00:00 Outpatient [facility] [id number] [facility] 2017-08-24 02:23:59 2017-08-24 02:23:59 Emergency [facility] [id number] [facility] 2017-08-24 02:22:27 2017-08-24 02:22:27 Emergency [facility] [id number] [facility] 2017-08-24 01:56:44 2017-08-24 01:56:44 Inpatient [facility] MED [id number] [facility] 2017-08-22 12:33:32 2017-08-22 12:33:32 Outpatient [facility] [id number] [facility] 2017-08-22 00:00:00 2017-08-22 00:00:00 Outpatient [facility] [id number] [facility] 2017-08-21 15:58:35 2017-08-21 15:58:35 Outpatient [facility] [id number] [facility] 2017-08-21 13:03:13 2017-08-21 13:03:13 Outpatient [facility] [id number] [facility] 2017-08-21 11:38:00 2017-08-21 11:38:00 Outpatient [facility] [id number] [facility] 2017-08-21 00:00:00 2017-08-21 00:00:00 Outpatient [facility] [id number] [facility] 2017-08-21 00:00:00 2017-08-21 00:00:00 Outpatient [facility] [id number] [facility] 2017-08-20 00:00:00 2017-08-20 00:00:00 Outpatient [facility] [id number] [facility] 2017-08-14 14:59:56 2017-08-14 14:59:56 Outpatient [facility] [id number] [facility] 2017-08-14 14:33:47 2017-08-14 14:33:47 Outpatient [facility] [id number] [facility] 2017-08-13 17:59:00 2017-08-13 17:59:00 Emergency [facility] MED [id number] [facility] 2017-08-09 00:00:00 2017-08-09 00:00:00 Outpatient [facility] [id number] [facility] 2017-08-08 00:00:00 2017-08-08 00:00:00 Outpatient [facility] [id number] [facility] 2017-08-07 00:00:00 2017-08-07 00:00:00 Outpatient [facility] [id number] [facility] 2017-08-07 00:00:00 2017-08-07 00:00:00 Outpatient [facility] [id number] [facility] 2017-08-06 00:00:00 2017-08-06 00:00:00 Outpatient [facility] [id number] [facility] 2017-08-06 00:00:00 2017-08-06 00:00:00 Outpatient [facility] [id number] [facility] 2017-08-05 15:21:12 2017-08-05 15:21:12 Emergency [facility] [id number] [facility] 2017-08-05 15:02:14 2017-08-05 15:02:14 Emergency [facility] [id number] [facility] 2017-08-05 14:28:11 2017-08-05 14:28:11 [facility] [id number] [facility] 2017-08-01 00:00:00 2017-08-01 00:00:00 Outpatient [facility] [id number] [facility] 2017-07-31 14:45:55 2017-07-31 14:45:55 Outpatient [facility] [id number] [facility] 2017-07-31 11:25:21 2017-07-31 11:25:21 Outpatient [facility] [id number] [facility] 2017-07-18 11:55:11 2017-07-18 11:55:11 Outpatient [facility] [id number] [facility] 2017-07-18 10:32:47 2017-07-18 10:32:47 Outpatient [facility] [id number] [facility] 2017-07-18 00:00:00 2017-07-18 00:00:00 Outpatient [facility] [id number] [facility] 2017-07-10 12:42:15 2017-07-10 12:42:15 Outpatient [facility] [id number] [facility] 2017-07-10 12:13:20 2017-07-10 12:13:20 Outpatient [facility] [id number] [facility] 2017-07-01 15:40:57 2017-07-01 15:40:57 Outpatient [facility] [id number] [facility] 2017-07-01 11:40:32 2017-07-01 11:40:32 Outpatient [facility] [id number] [facility] 2017-06-28 09:42:12 2017-06-28 09:42:12 Outpatient [facility] [id number] [facility] 2017-06-28 07:52:15 2017-06-28 07:52:15 Outpatient [facility] [id number] [facility] 2017-06-28 00:00:00 2017-06-28 00:00:00 Outpatient [facility] [id number] [facility] 2017-06-27 10:40:35 2017-06-27 10:40:35 Outpatient [facility] [id number] [facility] 2017-06-27 07:57:08 2017-06-27 07:57:08 Outpatient [facility] [id number] [facility] 2017-06-27 00:00:00 2017-06-27 00:00:00 Outpatient [facility] [id number] [facility] 2017-06-26 00:00:00 2017-06-26 00:00:00 Outpatient [facility] [id number] [facility] 2017-06-26 00:00:00 2017-06-26 00:00:00 Outpatient [facility] [id number] [facility] 2017-06-24 12:29:08 2017-06-24 12:29:08 Outpatient [facility] [id number] [facility] 2017-06-23 20:47:21 2017-06-23 20:47:21 Emergency [facility] MED [id number] [facility] 2017-06-20 00:00:00 2017-06-20 00:00:00 Outpatient [facility] [id number] [facility] 2017-06-19 15:10:12 2017-06-19 15:10:12 Outpatient [facility] [id number] [facility] 2017-06-19 13:10:55 2017-06-19 13:10:55 Outpatient [facility] [id number] [facility] 2017-06-17 10:12:03 2017-06-17 10:12:03 Outpatient [facility] [id number] [facility] 2017-06-12 00:00:00 2017-06-12 00:00:00 Outpatient [facility] [id number] [facility] 2017-06-10 14:02:37 2017-06-10 14:02:37 Outpatient [facility] [id number] [facility] 2017-06-10 10:32:05 2017-06-10 10:32:05 Outpatient [facility] [id number] [facility] 2017-06-10 06:30:40 2017-06-10 06:30:40 Outpatient [facility] [id number] [facility] 2017-06-10 02:12:36 2017-06-10 02:12:36 Emergency [facility] [id number] [facility] 2017-06-10 01:07:16 2017-06-10 01:07:16 Emergency [facility] [id number] [facility] 2017-06-10 00:13:04 2017-06-10 00:13:04 Outpatient [facility] [id number] [facility] 2017-06-06 10:03:18 2017-06-06 10:03:18 Outpatient [facility] [id number] [facility] 2017-06-06 07:48:14 2017-06-06 07:48:14 Outpatient [facility] [id number] [facility] 2017-05-29 14:01:28 2017-05-29 14:01:28 Outpatient [facility] [id number] [facility] 2017-05-29 00:00:00 2017-05-29 00:00:00 Outpatient [facility] [id number] [facility] 2017-05-28 16:00:09 2017-05-28 16:00:09 Outpatient [facility] [id number] [facility] 2017-05-27 09:02:22 2017-05-27 09:02:22 Outpatient [facility] [id number] [facility] 2017-05-24 00:00:00 2017-05-24 00:00:00 Outpatient [facility] [id number] [facility] 2017-05-23 10:59:30 2017-05-23 10:59:30 Outpatient [facility] [id number] [facility] 2017-05-22 12:40:41 2017-05-22 12:40:41 Outpatient [facility] [id number] [facility] 2017-05-22 11:55:09 2017-05-22 11:55:09 Outpatient [facility] [id number] [facility] 2017-05-22 00:00:00 2017-05-22 00:00:00 Outpatient [facility] [id number] [facility] 2017-05-21 00:00:00 2017-05-21 00:00:00 Outpatient [facility] [id number] [facility] 2017-05-17 00:00:00 2017-05-17 00:00:00 Outpatient [facility] [id number] [facility] 2017-05-16 00:00:00 2017-05-16 00:00:00 Outpatient [facility] [id number] [facility] 2017-05-15 18:00:57 2017-05-15 18:00:57 Outpatient [facility] [id number] [facility] 2017-05-15 10:13:03 2017-05-15 10:13:03 Outpatient [facility] [id number] [facility] 2017-05-10 00:00:00 2017-05-10 00:00:00 Outpatient [facility] [id number] [facility] 2017-05-09 00:00:00 2017-05-09 00:00:00 Outpatient [facility] [id number] [facility] 2017-05-08 13:10:16 2017-05-08 13:10:16 Outpatient [facility] [id number] [facility] 2017-05-08 10:23:23 2017-05-08 10:23:23 Outpatient [facility] [id number] [facility] 2017-05-03 00:00:00 2017-05-03 00:00:00 Outpatient [facility] [id number] [facility] 2017-05-02 13:57:46 2017-05-02 13:57:46 Outpatient [facility] [id number] [facility] 2017-05-01 13:45:44 2017-05-01 13:45:44 Outpatient [facility] [id number] [facility] 2017-05-01 11:47:25 2017-05-01 11:47:25 Outpatient [facility] [id number] [facility] 2017-05-01 00:00:00 2017-05-01 00:00:00 Outpatient [facility] [id number] [facility] 2017-04-26 00:00:00 2017-04-26 00:00:00 Outpatient [facility] [id number] [facility] 2017-04-25 13:18:41 2017-04-25 13:18:41 Outpatient [facility] [id number] [facility] 2017-04-25 11:08:01 2017-04-25 11:08:01 Outpatient [facility] [id number] [facility] 2017-04-24 00:00:00 2017-04-24 00:00:00 Outpatient [facility] [id number] [facility] 2017-04-24 00:00:00 2017-04-24 00:00:00 Outpatient [facility] [id number] [facility] 2017-04-24 00:00:00 2017-04-24 00:00:00 Outpatient [facility] [id number] [facility] 2017-04-24 00:00:00 2017-04-24 00:00:00 Outpatient [facility] [id number] [facility] 2017-04-19 11:37:40 2017-04-19 11:37:40 Outpatient [facility] [id number] [facility] 2017-04-19 11:10:58 2017-04-19 11:10:58 Outpatient [facility] [id number] [facility] 2017-04-17 00:00:00 2017-04-17 00:00:00 Outpatient [facility] [id number] [facility] 2017-04-17 00:00:00 2017-04-17 00:00:00 Outpatient [facility] [id number] [facility] 2017-04-11 11:46:10 2017-04-11 11:46:10 Outpatient [facility] [id number] [facility] 2017-04-11 09:46:35 2017-04-11 09:46:35 Outpatient [facility] [id number] [facility] 2017-04-10 00:00:00 2017-04-10 00:00:00 Outpatient [facility] [id number] [facility] 2017-04-10 00:00:00 2017-04-10 00:00:00 Outpatient [facility] [id number] [facility] 2017-04-09 15:23:51 2017-04-09 15:23:51 Outpatient [facility] [id number] [facility] 2017-04-08 00:00:00 2017-04-08 00:00:00 Outpatient [facility] [id number] [facility] 2017-04-04 14:17:20 2017-04-04 14:17:20 Outpatient [facility] [id number] [facility] 2017-04-03 10:14:26 2017-04-03 10:14:26 Outpatient [facility] [id number] [facility] 2017-03-27 13:40:36 2017-03-27 13:40:36 Outpatient [facility] [id number] [facility] 2017-03-27 11:40:55 2017-03-27 11:40:55 Outpatient [facility] [id number] [facility] 2017-03-27 00:00:00 2017-03-27 00:00:00 Outpatient [facility] [id number] [facility] 2017-03-21 11:58:15 2017-03-21 11:58:15 Outpatient [facility] [id number] [facility] 2017-03-20 13:44:16 2017-03-20 13:44:16 Outpatient [facility] [id number] [facility] 2017-03-20 13:29:24 2017-03-20 13:29:24 Outpatient [facility] [id number] [facility] 2017-03-20 00:00:00 2017-03-20 00:00:00 Outpatient [facility] [id number] [facility] 2017-03-14 13:10:27 2017-03-14 13:10:27 Outpatient [facility] [id number] [facility] 2017-03-14 10:59:06 2017-03-14 10:59:06 Outpatient [facility] [id number] [facility] 2017-03-06 12:31:26 2017-03-06 12:31:26 Outpatient [facility] [id number] [facility] 2017-03-06 11:00:44 2017-03-06 11:00:44 Outpatient [facility] [id number] [facility] 2017-03-06 00:00:00 2017-03-06 00:00:00 Outpatient [facility] [id number] [facility] 2017-03-06 00:00:00 2017-03-06 00:00:00 Outpatient [facility] [id number] [facility] 2017-03-04 12:11:58 2017-03-04 12:11:58 Outpatient [facility] [id number] [facility] 2017-03-04 00:00:00 2017-03-04 00:00:00 Outpatient [facility] [id number] [facility] 2017-03-04 00:00:00 2017-03-04 00:00:00 Outpatient [facility] [id number] [facility] 2017-03-04 00:00:00 2017-03-04 00:00:00 Outpatient [facility] [id number] [facility] 2017-03-01 09:05:38 2017-03-01 09:05:38 [facility]patient [facility] [id number] [facility] 2017-02-28 13:35:58 2017-02-28 13:35:58 Outpatient [facility] [id number] [facility] 2017-02-27 13:13:47 2017-02-27 13:13:47 Outpatient [facility] [id number] [facility] 2017-02-25 00:00:00 2017-02-25 00:00:00 Outpatient [facility] [id number] [facility] 2017-02-20 00:00:00 2017-02-20 00:00:00 Outpatient [facility] [id number] [facility] 2017-02-20 00:00:00 2017-02-20 00:00:00 Outpatient [facility] [id number] [facility] [facility] 2017-02-15 09:23:31 2017-02-15 09:23:31 Outpatient [facility] [id number] [facility] 2017-02-13 12:40:26 2017-02-13 12:40:26 Outpatient [facility] [id number] [facility] 2017-02-13 09:13:39 2017-02-13 09:13:39 Outpatient [facility] [id number] [facility] 2017-02-13 00:00:00 2017-02-13 00:00:00 Outpatient [facility] [id number] [facility] 2017-02-12 09:55:19 2017-02-12 09:55:19 Outpatient [facility] [id number] [facility] 2017-02-12 00:00:00 2017-02-12 00:00:00 Outpatient [facility] [id number] [facility] 2017-02-11 20:09:00 2017-02-11 20:09:00 Emergency [facility] MED [id number] [facility] 2017-02-11 18:02:33 2017-02-11 18:02:33 Outpatient [facility] [id number] [facility] 2017-02-05 16:03:44 2017-02-05 16:03:44 Outpatient [facility] [id number] [facility] 2017-01-30 12:37:28 2017-01-30 12:37:28 Outpatient [facility] [id number] [facility] 2017-01-30 09:37:37 2017-01-30 09:37:37 Outpatient [facility] [id number] [facility] 2017-01-30 09:24:47 2017-01-30 09:24:47 Outpatient [facility] [id number] [facility] 2017-01-28 00:00:00 2017-01-28 00:00:00 Outpatient [facility] [id number] [facility] 2017-01-28 00:00:00 2017-01-28 00:00:00 Outpatient [facility] [id number] [facility] 2017-01-22 00:00:00 2017-01-22 00:00:00 Outpatient [facility] [id number] [facility] Results Test Description Test Time Test Comments Results Result Comments Source Comprehensive Metabolic Panel 2020-02-17 16:42:00 Test Item Sodium (test code = 2951-2) 140 mmol/L 136-145 Potassium (test code = 2823-3) 4.2 mmol/L 3.5-5.1 Chloride (test code = 2075-0) 106 mmol/L 98-107 CO2 (test code = 42026269) 28 mmol/L 21-31 Glucose (test code = 98492949) 102 mg/dL 70-110 Calcium (test code = 87841724) 10.2 mg/dL 8.6-10.3 Urea Nitrogen (test code = 94238278) 16.0 mg/dL 7-25 Creatinine (test code = 77202334) 0.8 mg/dL 0.6-1.2 Alkaline Phosphatase (test code = 89602982) 108 U/L 34-104 H ALT (test code = 55998542) 16 U/L 7-52 AST (test code = 91851825) 20 U/L 13-39 Total Protein (test code = 2885-2) 7.6 g/dL 6-8.3 GFR, Estimated (test code = 64860136) 73 >=90 mL/min/1.73 m2 L Albumin (test code = 72245-9) 4.1 g/dL 3.7-5.3 Anion Gap (test code = 51407946) 6 mmol/L 5-16 Lab Interpretation (test code = 53981-3) Abnormal [facility]/[id number] 16:18:00* Test Item Value Reference Range Interpretation Comments WBC (test code = 6690-2) 6.7 K/uL 4.5-11 RBC (test code = 789-8) 4.22 4.20- 5.40 M/uL Hemoglobin (test code = 718-7) 13.0 g/dL 12-16 Hematocrit (test code = 4544-3) 40.5 % 37-47 MCV (test code = 787-2) 96.0 fL 82-92 H MCH (test code = 785-6) 30.8 pg 27-32 MCHC (test code = 786-4) 32.1 g/dL 32-36 RDW (test code = 03957-0) 53.1 fL 36.4-46.3 H Platelet (test code = 777-3) 195 K/uL 150-400 Mean Platelet Volume (test code = 06579-0) 9.2 fL 9.4-12.4 L Neutrophil (test code = 770-8) 55.6 % 34-70 Lymphs (test code = 736-9) 36.0 % 20-50 Monocytes (test code = 5905-5) 6.6 % 5-12 Eos (test code = 713-8) 1.5 % 0.7-5 Basos (test code = 706-2) 0.3 % 0.1-1.2 Immature Granulocytes (test code = 04363254) 0.3 % 0-0.5 Neutrophils (Absolute) (test code = 67873058) 3.71 K/uL 1.56-6.1 3 Lymphs (Absolute) (test code = 00188534) 2.40 K/uL 1.18-3.74 Monocytes(Absolute) (test code = 91925436) 0.44 K/uL 0.24-0.36 H Eos (Absolute) (test code = 73616399) 0.10 K/uL 0.04-0.36 Baso (Absolute) (test code = 07925152) 0.02 K/uL 0.01-0.08 Immature Grans (Abs) (test code = 53026426) 0.02 K/uL 0-0.03 Lab Interpretation (test code = 67901-9) [id number] 13:39:03IMPRESSION: 1. Status post mastectomy without evidence of residual hypermetabolicFDG avid uptake. The previously described pulmonary left apical scarringwith residual metastatic nodule has resolved. 2. Non-Hypermetabolic right upper lobe subcentimeter nodule.3. 2 mildly hypermetabolic soft tissue left anterior abdomen nodulessuggest inflammatory etiology or injection granuloma. Attention onfoll owup recommended. 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 The study is being performed for purposes ofrestaging. TECHNIQUE: Approximately [address] 13.75 mCi IV FDGadministration, PET/CT imaging was performed from the level of the skullbase to the midthigh. . Cross-sectional as well as 3D (MIP) images ofthe PET data and cross-sectional images of the CT data were generatedwith co-r egistration of the 2 image sets. ?The PET images are displayedwith and without a ttenuation correction. ?CT imaging was employed forattenuation correction and an atomic localization of PET scanabnormalities. ?A diagnostic CT with contrast age nts was not performed. Blood glucose: 115 mg/dlWeight: 230 lbsUptake time: 65 minutesCTDI: 15.99 mGyCOMPARISON: Most recent FDG PET/CT 09/09/2019.FINDINGS: Head and neck: There is no abnormal increased or decreased FDGactivity in the visualized brain and cervical regions. Symmetric traceruptake in the tonsils is likely physiologic. Chest: No FDG-avid pulmonary nodules or mediastinal shiv opathy areseen. There is no pleural effusion or pericardial effusion. Theprevio usly described diffuse bilateral groundglass opacity has resolved.No abnormal FD G avid mediastinal, hilar lymph nodes identified. Stable,nonhypermetabolic right apical nodule 3 mm on image #83. Resolved leftapical scarring without hypermeta bolic uptake. Evidence cardiomegaly. Patient status post right mastectomy.Abdome n and pelvis: No focal abnormal FDG uptake is identified in theliver, bilatera l adrenals, spleen, or pancreas. No lymphadenopathy isseen in the retroperitone um and pelvis. Status post cholecystectomy2 mildly hypermetabolic subcutaneous n odules the left anterior abdomenthe first of which is on image #216 with Max SUV 4.5, 7 mm., and angtn113, max SUV 3.5, 5.6 mm.Skeleton: No focal abnormal FDG activity is identified in the skeletonto suggest bony metastasis. IMPRESSIONIMPR ESSION: 1. Status post mastectomy without evidence of residual hypermetabolicFD G avid uptake. The previously described pulmonary left apical scarringwith resid ual metastatic nodule has resolved. 2. Non-Hypermetabolic right upper lobe subce ntimeter nodule.3. 2 mildly hypermetabolic soft tissue left anterior abdomen no dulessuggest inflammatory etiology or injection granuloma. Attention onfollowup recommended. Signed By: Roseline Han MD, 12/31/2019 1:39 PMFrierson HumIQR Consulting GLUCOSE POC docked [id number] 10:14:00* Test Item Value Reference Range Interpretation Comments Glucose POC (test code = 66394080) 115 mg/dL 74-106 H Lab Interpretation (test code = 84066-2) Abnormal [facility]Influenza A/B and RSV [id number] 12:01:00* Test Item Value Reference Range Interpretation Comments Influenza A (test code = 02492-3) Not detected Not detected Influenza B (test code = 39605-9) Detected Not detected A RSV (test code = 31168-6) Not detected Not detected PATIENCE (test code = PATIENCE) This test utilizes FDA clear ed Becky charleen Influenza A/B & RSV real-time RT-PCR assay for qualitative detection and discrimination of Influenza A virus, Influenza B virus and Respiratory Syncytial virus (RSV). Additional testing is required to differentiate any specific Influenza A subtypes or strains or specific RSV subgroups. Lab Interpretation (test code = 77850-9) Abnormal [facility] CHEST PE [id number] 05:23:39IMPRESSION: No pulmonary emboli.Mild cardiomegaly. Scattered areas of air trapping. If the report is "FINALIZED" it indicates that the attending/staffradiologist has reviewed the images and agrees with the resident'sinterpretation. Dictated By: Henrry Butcher MD, 10/10/2019 4:42 AM I have reviewed the study and agree with the findings in this report. Signed By: Zachary Mendez, 10/10/2019 5:23 AM Interface, [place]/Mammog In - 10/10/2019 5:28 AM CSTEXAM: CT Chest WITH contrast (PE Protocol)INDICATION: PE suspected, intermediate prob, positive D-dimer COMPARISON: CT chest PE on 07/05/2019 and PET/CT 09/09/2019.TECHNIQUE:Chest was s canned utilizing a multidetector helical scanner from thelung apex through the l evel of the diaphragm after administration of IVcontrast. Thin section reconstru ctions were obtained with specialconcentration on the pulmonary arteries. Wilder l and sagittalreformations were obtained. Pulmonary embolism protocol was perfor med. IV CONTRAST: 100 mL of Omnipaque 350COMPLICATIONS: NoneRADIATION DOSE: Total DLP: 295 mGy*cm Estimated effective dose: (DLP x 0.014 x size fac tor) mSv CTDIvol has been reviewed. It is below the limits set by theRadiati on Protocol Committee (RPC).FINDINGS:LINES/ TUBES: None.PULMONARY ARTERIES: No f illing defect is identified within the pulmonaryarteries to the segmental level. Main pulmonary artery measures 2.8 cmin diameter.LUNGS AND AIRWAYS: Right apical scarring and streaky subpleuralopacities in the right anterior lung, likely po stradiation changes.Scattered areas of air trapping. Mild left lower lobe subple uralreticulation, likely dependent atelectasis. Resolution of left upperlobe con solidation. Airways are normal.PLEURA: The pleural spaces are clear.LYMPH NODES : No enlarged axillary, supraclavicular, mediastinal, orhilar lymph nodes. Desce nding thoracic aorta is mildly tortuous.THYROID/BASE OF NECK: Visualized portion s are normal.HEART AND MEDIASTINUM: The heart is mildly enlarged. There is nope ricardial effusion. UPPER ABDOMEN: Cholecystectomy clips.BONES: A 0.5 cm sclerot ic lesion in the posterior aspect of T6 vertebralbody, stable compared to CT [address]ricia st of 01/24/2017 and likely benign.SOFT TISSUES: Right mastectomy and postsurgical changes of the rightaxilla.IMPRESSIONIMPRESSION: No pulmonary emboli.Mild cardi omegaly. Scattered areas of air trapping.If the report is "FINALIZED" it indicat es that the attending/staffradiologist has reviewed the images and agrees with t he resident'sinterpretation.Dictated By: Henrry Butcher MD, 10/10/2019 4:42 AMI have reviewed the study and agree with the findings in this report.Signed B y: Trevinalex Mendez, 10/10/2019 5:23 [place] [address] LEAD [id number] 04:07:12 12 LEAD EKG FOR [facility] Test Date: [id number] Name: DANIEL PARIKH Department: 5520Patient ID: [id number] Room: Gender: F Biologics Specialist: : 1955 Requested By: ABIMAEL CAMARILLO EK Order Number: [id number] Dieudonne MD: Daniel Interiano M.D. MeasurementsIntervals A xis Rate: 81 P: 19PR: 173 QRS: -17QRSD: 158 T: 98QT: 460 QTc: 536 Interpre tive StatementsSINUS RHYTHMPOSSIBLE LEFT ATRIAL ENLARGEMENTLEFT BUNDLE BRANCH BL OCKElectronically Signed On 10-10-2019 4:07:07 PAVING CONTRACTOR by Daniel Interiano M.D.[facility] RadhaTroponin [id number] 02:59:00* Test Item Value Reference Range Interpretation Comments Troponin I (test code = 46737839) <0.03 <0.04 ng/mL Lab Interpretation (test code = 92216-1) [facility][id number] 02:57:00* Test Item Value Reference Range Interpretation Comments D-Dimer (test code = 88228829) 1.18 0.22- 0.48 ug/mL FEU H Values of quantitative D-Dimer less than 0.40 ug/mL FEU have been reported to be associated with a low probability of deep vein thrombosis/pulmonary embolism. This test alone should not be used to rule out DVT/PE. Lab Interpretation (test code = 51029-0) [facility]normal [facility] 2 [id number] 00:48:08IMPRESSION: No acute cardiopulmonary process. Postoperative changes as describedabove. If the report is "FINALIZED" it indicates that the attending/staffradiologist has reviewed the images and agrees with the resident'sinterpretation. Dictated By: Jamal Huddleston MD, 10/10/2019 12:04 AM I have reviewed the study and agree with the findings in this report. Signed By: Zachary Mendez, 10/10/2019 12:48 AM Interface, Rad/Mammog In - 10/10/2019 12:53 AM CSTEXAMINATION: XRAY CHEST 2 VIEWS INDICATION: COUGH COMPARISON: Chest radiographs 07/05/2019, whole body PET CT 09/09/2019 FINDINGS: PA and lateral viewsTUBES and LINES: Left I J Port-A-Cath, tip in the SVC.LUNGS: Lungs are well inflated. There is no evide nce of pneumonia orpulmonary edema.PLEURA: No pleural effusion or pneumothorax. HEART AND MEDIASTINUM: The cardiomediastinal silhouette isunremarkable. BONES A ND SOFT TISSUES: No focal osseous lesion. Surgical clips in theright chest wall/ axilla. Status post right mastectomy.UPPER ABDOMEN: No free air under the diaphr agm. IMPRESSIONIMPRESSION: No acute cardiopulmonary process. Postoperative trent es as describedabove.If the report is "FINALIZED" it indicates that the attendin g/staffradiologist has reviewed the images and agrees with the resident'sinterpr etation.Dictated By: Jamal Huddleston MD, 10/10/2019 12:04 AMI have reviewed the lowell dy and agree with the findings in this report.Signed By: Zachary Mendez, 020 12:48 [facility] unless the patient is HIV [id number] 20:35:00* Test Item Value Reference Range Interpretation Comments HIV Ag/Ab Combo (test code = 10529-8) Negative Negative Lab Interpretation (test code = 47782-2) Normal [place] [address] LEAD [id number] 20:21:1212 LEAD EKG FOR [facility] Test Date: [id number] Name: DANIEL PARIKH Department: 5520Patient ID: [id number] Room: Gender: F Biologics Specialist: [id number]: 1955 Requested By: OBDULIA Gooden Number: [id number] Reading MD: tiara shen MeasurementsIntervals [place] Rate: 79 P: 45PR: 167 QRS: -30QRSD: 156 T: 88QT: 452 QTc: 520 Interpretive StatementsSINUS RHYTHMPOSSIBLE LEFT ATRIAL ENLARGEMENT [-0.1mV P WAVE IN V1/V2]LEFT BUNDLE BRANCH BLOCK [120+ ms QRS DURATION, 80+ ms Q/S IN V1/V2, 85+ ms RIN I/aVL/V5/V6]Reviewed by Electronically Signed On 10-09-2019 20 :21:08 PAVING CONTRACTOR by [facility]Pull[facility] CREATININE POC docked device 2019-10-09 19:23:00* Test Item Value Reference Range Interpretation Comments Creatinine POC (test code = 85560134) 0.7 mg/dL 0.6-1.3 GFR, Estimated (test code = 27588519) >90 >=90 mL/min/1.73 m2 Lab Interpretation (test code = 22536-4) Normal [facility] BMP POC docked [id number] 19:19:00* Test Item Value Reference Range Interpretation Comments Sodium POC (test code = 22754926) 140 mmol/L 136-145 Potassium POC (test code = 40518232) 4.2 mmol/L 3.5-5.1 Chloride POC (test code = 15112775) 104 mmol/L 98-107 TCO2 POC (test code = 61355340) 29 mmol/L 21-32 Physician Notified Urea Nitrogen POC (test code = 93423205) 15 mg/dL 7-18 Glucose POC (test code = 05633772) 112 mg/dL 74-106 H Hemoglobin POC (test code = 07073246) 13.9 g/dL 12-16 Hematocrit POC (test code = 74821060) 41.0 % 37-47 Lab Interpretation (test code = 57157-2) Abnormal [facility] TROPONIN I POC docked [id number] 19:19:00* Test Item Value Reference Range Interpretation Comments Troponin POC (test code = 49498631) 0.01 ng/mL 0-0.08 Physician Notified Lab Interpretation (test code = 22633-9) [facility] 2 non-specific [id number] 13:02:00* Test Item Value Reference Range Interpretation Comments Blood Culture (test code = 600-7) No growth 5 days [facility] Metabolic [id number] 06:35:00* Test Item Value Reference Range Interpretation Comments Sodium (test code = 2951-2) 143 mmol/L 136-145 Potassium (test code = 2823-3) 4.0 mmol/L 3.5-5.1 Chloride (test code = 2075-0) 105 mmol/L 98-107 CO2 (test code = 09750533) 26 mmol/L 21-31 Urea Nitrogen (test code = 63525357) 18.0 mg/dL 7-25 Creatinine (test code = 23207294) 0.8 mg/dL 0.6-1.2 Glucose (test code = 58544564) 106 mg/dL 70-110 Calcium (test code = 14457016) 9.4 mg/dL 8.6-10.3 GFR, Estimated (test code = 66758805) 73 >=90 mL/min/1.73 m2 L Anion Gap (test code = 20803191) 12 mmol/L 5-16 Lab Interpretation (test code = 52473-0) Abnormal [place] [address] LEAD [id number] 12:51:5212 LEAD EKG FOR [facility] Test Date: 0356-79-70Meg Name: DANIEL PARIKH Department: C6YRNlybkze ID: [id number] Room: Gender: F Biologics Specialist: [id number]: 1955 Requested By: BRIGIDO KHAN Order Number: [id number] Reading MD: Prabha Caballero MD MeasurementsIntervals [place] Rate: 76 P: 32PR: 165 QRS: 2QRSD: 158 T: 53QT: 460 QTc: 517 Interpretive StatementsSinus rhythmLeft bundle branch blockElectronically Signed On 07-08-2019 12:51:48 PAVING CONTRACTOR by EVENS MoraesAshtabula [facility] HospitalTRANSTHORACIC E[facility] (TTE)2019-07-07 16:17:00 TRANSTHORACIC ECHO (TTE) Transthoracic Echo Report DANIEL BAUER Age: 63 Gender: F : 1955 Exam D ate: 07/07/2019 14:12 Exam Location: [facility] Echo Or dering Phys: BRIGIDO KHAN Referring Phys: Reading Phys: Nitza Caballero MD Fellow Phys: Fellow Phys: Clothes Shaker: Andrew Oswald Reason For Exam: Indications: CoNS w/ mecA, staph epi bacteremia. evaluate for endocarditis. 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 Cardiomyopathy ICD-9 Codes: I42.3 Exam Type: TRANSTHORACIC ECHO (TTE) Procedure CPT: 21716 Addtional CPT: Ht (in): 63 BSA: 2.26 HR: 78 Rhythm: Sinus rhythm Wt (lb): 240 BP: 95 / 74 Technical Quality: Adequate Hi story: MEASUREMENTS Normal ranges based on 95% confidence intervals for adult s, some normal patients may fall outside of this range especially when indexin g for BSA 2D ECHO LV Diastolic Diameter PLAX 7.2 cm 4.2 -5.8 (M) / 3.8-5.2 (F) LV Systolic Diameter PLAX 4.3 cm 2.5-4.0 (M) / 2.2-3.5 (F) LV Fractional Shortening PLAX 39.9 % IVS Diastolic Thickness 1.3 cm 0.6-1.0 (M) / 0.6-0 .9 (F) LVPW Diastolic Thickness 1.2 cm 0.6-1.0 (M) / 0. 6-0.9 (F) LV Relative Wall Thickness 0.35 <= 0.42 LVOT Diameter 2.3 cm Aortic Root Diameter 3.1 cm LA Systolic Diameter LX 3.3 cm LA Ao Ratio 1.1 LV Diastolic Volume MOD BP 252 cm 62-150 cm (M) / 46-106 cm (F) LV Mass by linear method 450 g LV Mass by linear method Index 199 g/m2 DOPPLER LVOT Peak Velocity 109 cm/s LVOT Peak Gradient 4.8 mmHg LVOT Mean Velocity 69.3 cm/s LVOT Mean Gradient 1.9 mmHg LVOT Velocity Time Integral 17.4 cm LVOT Stroke Volume 73.8 cm Mitral E Point Velocity 83.4 cm/s Mitral A Point Velocity 97.5 cm/s Mitral E to A Ratio 0.8 6 LV E' Lateral Velocity 8.7 cm/s M itral E to LV E' Lateral Ratio 9.6 LV E' Septal Velocity 6.6 cm/s Mitral E to LV E' Septal Ratio 12.7 FINDINGS Left Ventricle Severe left ventricular dilatation. S everely reduced global left ventricular systolic function. Left ventricular ej ection fraction is 30-34%. Indeterminent diastology Right Ventricle The rig ht ventricle is normal in size and systolic function. Right Atrium The right atrium is normal in size. Left Atrium Mild dilation IAS Mitral Valve Lars ral leaflets mildly thickened. Mild MR Aortic Valve AV is not well seen, like ly trileaflet, diffuse calcification. There is a small linear density that is on the aortic side of the valve. appearance similar to prior study in 02/2019 Tricuspid Valve Tricuspid valve not well visualized. Pulmonic Valve Pulmonic valve not well visualized. Pericardium No pericardial effusion. Aorta No rmal aortic root for body surface area. IVC The inferior vena cava is normal in size. CONCLUSIONS Severe left ventricular dilatation. Severely reduced gl obal left ventricular systolic function. Left ventricular ejection fraction is 30-34%. Indeterminent diastology. AV sclerosis. other valves are not well seen no significant changes compared to prior study Prabha Caballero MD (Electro nically Signed) Final Date: 07 July 2019 16:16 2D ECHO LV Diastolic Diameter PLAX 7.2 cm 4.2-5.8 (M) / 3.8- 5.2 (F) LV Systolic Diameter PLAX 4.3 cm 2.5-4.0 (M) / 2.2-3.5 (F) LV Fractional Shortening PLAX 39.9 % IVS Diast olic Thickness 1.3 cm 0.6-1.0 (M) / 0.6-0.9 (F) LVPW D iastolic Thickness 1.2 cm 0.6-1.0 (M) / 0.6-0.9 (F) LV Relative Wall Thickness 0.35 <= 0.42 LVOT Diameter 2.3 cm Aortic Root Diameter 3.1 cm LA Systolic Diameter LX 3.3 cm LA Ao Ratio 1.1 LV Diastolic Volume MOD BP 252 cm 62-150 cm (M) / 46-106 cm (F) LV Mass by linear method 450 g LV Mass by linear method Index 199 g/m2 DOPPLER LVOT Peak Velocity 109 cm/s LVOT [...] E to LV E' Septal Ratio 12.7 [facility] (without differential)2019-07-07 05:05:00* Test Item Value Reference Range Interpretation Comments WBC (test code = 6690-2) 8.3 K/uL 4.5-11 RBC (test code = 789-8) 3.38 4.20- 5.40 M/uL L Hemoglobin (test code = 718-7) 11.1 g/dL 12-16 L Hematocrit (test code = 4544-3) 33.8 % 37-47 L MCV (test code = 787-2) 100.0 fL 82-92 H MCH (test code = 785-6) 32.8 pg 27-32 H MCHC (test code = 786-4) 32.8 g/dL 32-36 RDW (test code = 91552-0) 52.0 fL 36.4-46.3 H Platelet (test code = 777-3) 170 K/uL 150-400 Mean Platelet Volume (test code = 71016-6) 10.3 fL 9.4-12.4 Percent NRBC (test code = 18658929) 0.0 % Lab Interpretation (test code = 97366-7) Abnormal [facility]-Pos Blood [id number] 23:22:00* Test Item Value Reference Range Interpretation Comments Staphylococcus (test code = 94601530) Not Detected Not Detected Staph aureus (test code = 96540425) Not Detected Not Detected Staph epidermidis (test code = 86712455) Detected Not Detected A POSITIVE for the coagulase-negative staphylococcus, Staphylococcus epidermidis and methicillin-resistance. Detection determined by Verigene nucleic acid test. Staph lugdunensis (test code = 90935447) Not Detected Not Detected Streptococcus (test code = 23991785) Not Detected Not Detected Strep agalactiae (test code = 75229462) Not Detected Not Detected Strep pyogenes (test code = 05004118) Not Detected Not detected Strep pneumoniae (test code = 06742321) Not Detected Not Detected Strep anginosus sp (test code = 71611639) Not Detected Not Detected Entero faecalis (test code = 86692260) Not Detected Not Detected Entero faecium (test code = 86813113) Not Detected Not Detected Listeria (test code = 81368487) Not Detected mecA (test code = 74596676) Detected Not detected PATIENCE (test code = PATIENCE) This test is performed on [employer] utilizing reverse commodities requirements analyst (RT), polymerase chain reaction (PCR) and array hybridization, FDA cleared Verigene Gram-Positive Blood Culture Nucleic Acid Test for qualitative multiplex detection and identification of potentially pathogenic gram-positive bacteria directly on blood culture bottles identified as positive by continuous monitoring blood culture system and which contain gram-positive bacteria. "Not Detected" results for antimicrobial resistance genes should not be interpreted as confirming antimicrobial susceptibility of detected organisms. Antimicrobial resistance may be present by mechanisms not detected by the BC-GP panel. Lab Interpretation (test code = 95749-5) Abnormal [place] [address] LEAD [id number] 10:57:5712 LEAD EKG FOR [facility] Test Date: 1732-74-21Imy Name: DANIEL PARIKH Department: 5520Patient ID: [id number] Room: 4K50Yqikna: F Biologics Specialist: [id number]: 1955 Requested By: TAYLER Tomas Number: [id number] Reading MD: Dot Capone MeasurementsIntervals [place] Rate: 93 P: -10PR: 146 QRS: -35QRSD: 154 T: 91QT: 390 QTc: 487 Interpretive StatementsSINUS RHYTHMPOSSIBLE LEFT ATRIAL ENLARGEMENT [-0.1mV P WAVE IN V1/V2]MARKED LEFT AXIS DEVIATION [QRS AXIS < -30]LEFT BUNDLE BRANCH BLOCK [120+ ms QRS DURATION, 80+ ms Q/S IN V1/V2, 85+ ms RIN I/aVL/V5/V6]Electronically Signed On 07-06-2019 10:57:53 PAVING CONTRACTOR by [facility]Common[facility] HospitalYoutuo12 LEAD EKG 2019-07-06 10:57:5612 LEAD EKG FOR [facility] Test Date: [id number] Name: [facility] Department: 5520Patient ID: [id number] Room: 9W68Thbndf: F [employer] Specialist: [id number]: 1955 Requested By: GUILLERMO MANSFIELD Order Number: [id number] Reading MD: Dot Capone MeasurementsIntervals [place] Rate: 93 P: -10PR: 146 QRS: -13QRSD: 150 T: 125QT: 391 QTc: 487 Interpretive StatementsSINUS RHYTHMLEFT BUNDLE BRANCH BLOCK [120+ ms QRS DURATION, 80+ ms Q/S IN V1/V2, 85+ ms RIN I/aVL/V5/V6]Reviewed by Electronically Signed On 07-06-2019 10:57:51 PAVING [employer] by [employer] LEAD [id number] 10:57:4612 LEAD EKG FOR [facility] Test Date: [id number] Name: [facility] Department: 5520Patient ID: [id number] Room: 0C94Uhofhb: F [employer] Specialist: [id number]: 1955 Requested By: GUILLERMO MANSFIELD Order Number: [id number] Reading MD: Dot Capone MeasurementsIntervals [place] Rate: 93 P: -6PR: 143 QRS: -21QRSD: 149 T: 117QT: 383 QTc: 479 Interpretive StatementsSINUS RHYTHMLEFT BUNDLE BRANCH BLOCK [120+ ms QRS DURATION, 80+ ms Q/S IN V1/V2, 85+ ms RIN I/aVL/V5/V6]Reviewed by Electronically Signed On 07-06-2019 10:57:43 PAVING CONTRACTOR by Dot [facility]izarLe[facility] POC docked [id number] 07:02:00* Test Item Value Reference Range Interpretation Comments pH, [place] POC (test code = 46347164) 7.45 7.33-7.43 H HCO3, [place] POC (test code = 51699522) 23 mmol/L 22-26 TCO2 POC (test code = 70814008) 24 mmol/L 21-32 PO2, Venous POC (BKR) (test code = 21725064) 51 50- 75 mm Hg pCO2,[place] POC (test code = 71496173) 32.3 38- 50 mmHg L Base Deficit, [place] POC (test code = 44681687) -1 Sample Type (test code = 68964176) BERYL Physician Notified Lactic Acid POC (test code = 70029422) 0.66 mmol/L 0.4-2 % Sat, [place] POC (test code = 65569441) 88 % Lab Interpretation (test code = 84305-2) Abnormal [facility]
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
== END 2020-04-15 | disposition home or self-care (01) ==
LOC: ER 23:36
DX: I89.0 Lymphedema, not elsewhere classified (principal); S60.861A Insect bite (nonvenomous) of right wrist, initial encounter; Z85.3 Personal history of malignant neoplasm of breast; Z85.118 Personal history of other malignant neoplasm of bronchus and lung
CPT/HCPCS: 99282

== ENCOUNTER 2020-06-29 12:37 | Emergency (ER) | payer MEDICARE ==
[~2020-06-29] VITALS: Ht 165.1 cm; Wt 103.0 kg
[2020-06-29 13:10] LABS: BASOPHILS % 0.3 % (0.0-1.0); EOSINOPHILS % 0.5 % (0.0-6.0); HEMOGLOBIN 13.3 g/dL (12.0-16.0); LYMPHOCYTES % 31.1 % (18.0-39.1); MEAN CORPUSCULAR HEMOGLOBIN 30.8 pg (28-32); MEAN CORPUSCULAR HGB CONC 32.4 g/dL (31-35); MEAN CORPUSCULAR VOLUME 94.9 fL (81-99); MONOCYTES # (AUTO) 0.4 (0.2-0.8); MONOCYTES % 5.9 % (4.4-11.3); NEUTROPHILS % 61.7 % (38.7-80.0); PLATELET COUNT 201 x10e3/uL (140-360); RED BLOOD COUNT 4.32 x10e6/uL (3.6-5.1); RED CELL DISTRIBUTION WIDTH 15.6 % (11.7-14.4)
--- OUTSIDE RECORDS SUMMARY | 2020-06-29 13:21 | XMS REPORT | Continuity of Care Document ---
Author Organization Unknown Address Unknown Phone Unavailable Allergies, Adverse Reactions, Alerts Allergen Type Severity Reaction Last Updated Verified Status Amoxicillin Allergy Unkn own June 19, 2020 No Active Medications No known medications. Problems Active Problems Medical Problem Onset Date Status Fall Active Closed head injury Act manoj Scalp contusion Active Procedures No procedure information available. Relevant Diagnostic Tests and/or Laboratory Data No known relevant diagnostic tests and/or laboratory data. Health Concerns Health Concerns may be documented in an alternate section. Advance Directives Advance Directive Response Recorded Date/Time Does the Patient have an Advance Directive? No June 19, 2020 12:26pm Assessments No Assessments Information Available Functional Status No Functional Status information available Goals Goals may be documented in an alternate section. Immunizations No Immunization Information Available Mental Status No Mental Status Information Available Medical Equipment No Medical Equipment Information available Insurance Providers Guarantor Daniel Lopez Address [address] [place] [id number] Contact Info. Home Phone: Payer Policy Id Coverage Id Subscriber's Name Subscriber Id Effective Date Expiration Date Medicare [id number] Daniel Lopez [id number] Plan of Treatment Future Tests Future scheduled test information is unavailable Pending Tests Pending diagnostic test information is unavailable Future Visits Future appointment information is unavailable Referrals to Other Providers Reason for Referral Referral Start Date Provider Provider Conta ct Information Provider Address PCP, Dr. Danay Cosby MD Future Procedures Future procedure information is unavailable Future Medications Future medication information is unavailable Patient Instructions Contusion (DC) Minor Head Injury (DC) Head Injury Observation (DC) Social History Observation Status Observation Response Jorge e of Response Hx Tobacco Use No Novemb er 2019 12:52pm Assigned Sex Female Vital Signs No vital signs result information available.
--- OUTSIDE RECORDS SUMMARY | 2020-06-29 13:21 | XMS REPORT | Clinical Summary ---
Author Author [facility] Organization [facility] Address Unknown Phone Unavailable Care Team Providers Care Layer Up Name Role Phone Nancy Novoa MD PCP Pcp, No PCP Unavailable Allergies Comments Active Allergy Reactions Severity Noted [...] a total of 0.75 mg) DAILY. Active Miscellaneous Medical by 1 Each 0 Supply MiscIndications: Misc.(Non-Rolando 0 Malignant neoplasm of g; Combo right breast, stage 3 Route) route DISABILITY PARKING 2 PARKING PLACARDS. Active talazoparib 0.25 mg Take 0.75 mg 90 capsule 11 01/19 capIndications: Malignant by mouth Take 0 neoplasm of right breast, 3 tablets of stage 3 the 0.25 mg ( a total of 0.75 mg) DAILY. Active albuterol 90 Inhale 2 6.7 g [...] nasal nostril route sprayIndications: daily. Environmental allergies Active acetaminophen-codeine Take 1 tablet 60 tablet 0 (TYLENOL/CODEINE #3) by mouth 0 300-30 mg per every 6 hours tabletIndications: as needed for Malignant neoplasm of Pain. right breast, stage 3 Active benzonatate (TESSALON Take 1 20 capsule 0 04/19 PERLES) 100 mg capsule by 0 capsuleIndications: mouth 2 times Metastatic breast cancer, daily as Cough needed for Cough. Active gabapentin (NEURONTIN) Take 1 90 capsule 2 300 mg capsule by 0 capsuleIndications: mouth 3 times Malignant neoplasm of daily. right breast, stage 3 Active talazoparib 0.25 mg Take 2 30 capsule 11 capIndications: Malignant capsules by 0 neoplasm of right breast, mouth daily stage 3 Total dose = 0.5 mg. Active naproxen (NAPROSYN) 500 Take 1 tablet 30 tablet 0 mg tabletIndications: by mouth 2 0 Other chest pain times daily as needed for Pain. Active furosemide (LASIX) 40 mg Take 1 tablet 90 tablet 3 tabletIndications: by mouth 0 Chemotherapy induced daily. cardiomyopathy 03/18/2020 Discontinued (Reorder) albuterol 90 Inhale 2 [...] neoplasm of daily. right breast, stage 3 05/10/2020 Discontinued (Reorder) furosemide (LASIX) 40 mg Take 1 tablet 90 tablet 3 tabletIndications: by mouth 2 9 Chemotherapy induced times daily. cardiomyopathy 10/10/2019 Discontinued (Therapy comple jodie) guaiFENesin SR [...] neoplasm of Pain. right breast, stage 3 07/01/2019 chlorhexidine (PERIDEX) Swish with 473 mL [...] neoplasm of daily. right breast, stage 3 05/04/2020 Discontinued (Reorder) gabapentin (NEURONTIN) Take 1 90 [...] (telemedicine ) with pcp for more refills. 05/04/2020 Discontinued (Reorder) benzonatate (TESSALON Take 1 20 capsule 0 PERLES) 100 mg capsule by 0 capsuleIndications: mouth 2 times Metastatic breast cancer, daily as Cough needed for Cough. 05/04/2020 Discontinued (Reorder) acetaminophen-codeine Take 1 tablet 60 tablet 0 (TYLENOL/CODEINE #3) by mouth 0 300-30 mg per every 6 hours tabletIndications: as needed for Malignant neoplasm of Pain. right breast, stage 3 03/18/2020 albuterol (PROVENTIL) 2.5 Inhale 3 mL 75 mL 2 mg /3 mL (0.083 %) by mouth once 0 nebulizer for 1 dose. solutionIndications: Environmental allergies 04/11/2020 Discontinued mometasone (NASONEX) 50 Use 2 Sprays 17 g 1 0 mcg/actuation nasal spray by each 0 nostril route daily. Status Hospital, Clinic, or Ordered Dose Route Frequency Start End Date Other Facility Date Administered Medication Active heparin, porcine-PF 300 Units INTRA-CATHET EVERY 6 WEEKS 0 injection 300 Units 20 3 Discontinued heparin, porcine-PF 300 Units INTRA-CATHET EVERY [...] Radha Robison MD on 9 Clinical: Stage IIIA (T3, N2, M0) - Sig tono by Radha Robison MD on 01/24/2019 Breast hematoma Chest pain PE (pulmonary thromboembolism) Chemotherapy-induced neuropathy Pre-diabetes Influenza B Acute on chronic congestive heart failu re History of pulmonary embolism Right upper lobe consolidation Left bundle branch block Chemotherapy induced cardiomyopathy Peripheral polyneuropathy Cough Pneumonia of left upper lobe due to inf ectious organism SOB (shortness of breath) Bacteremia Encounters Care Team Description Date Type Specialty Marcel Slater NP 06/20/2020 Orders Only Oncology Dinah Rocha Physician Metastatic breast cancer (Primary Dx) 06/01/2020 Telephonic Oncology Encounter Mora Montano, FABIEN 05/23/2020 Nurse Only Metastatic breast cancer 05/20/2020 Ancillary Radiology Procedure 05/20/2020 Ancillary Radiology Procedure Hector Ramos MD SOB (shortness of breath) (Primary Dx); Other chest pain; Chemotherapy induced cardiomyopathy 05/10/2020 Emergency Emergency Medicine - 05/11/2020 Yesenia Moody, Fellow() Metastatic breast cancer (Primary Dx); Malignant neoplasm of right breast, stage 3; Cough 05/04/2020 Office Visit Oncology Yesenia Moody, Chrissie() 05/04/2020 Orders Only Oncology Danay Fowler MD Medications 05/04/2020 Orders Only Oncology Blanca Segundo MD Medications 04/11/2020 Refill Internal Medicine Rosa Isela Esparza, ResidentMD Blanca Segundo MD Screen for colon cancer (Primary Dx); Environmental allergies; Non-ischemic cardiomyopathy 03/18/2020 Office Visit Internal Medicine Rosa Isela Esparza, ResidentMD 03/18/2020 Orders Only Internal Medicine Marcel Slater, BODY SERVICE TEAM MEMBER Malignant neoplasm of right breast, stag e 3 (Primary Dx) 03/16/2020 Telephonic Oncology Encounter Danay Fowler MD Michael, Binu L, BODY SERVICE TEAM MEMBER Malignant neoplasm of right breast, stag e 3 (Primary Dx); Metastatic breast cancer; Cough 02/17/2020 Office Visit Oncology Nancy Novoa MD Medications 02/15/2020 Refill [facility] Krystal Cox MD Medications 02/15/2020 Refill Oncology Danay Fowler MD Medications 02/15/2020 Refill Oncology Danay Fowler MD Medications 01/20/2020 Orders Only Oncology Margi Rojas, [facility] 01/20/2020 Orders Only Oncology Marcel Slater, BODY SERVICE TEAM MEMBER Medications 01/18/2020 Orders Only Oncology Yvonne Stout MD Metastatic breast cancer (Primary Dx); UTI symptoms 01/06/2020 Telephonic Oncology Encounter Danay Fowler MD 01/05/2020 Orders Only Oncology Krystal Cox MD Malignant neoplasm of right breast, stag e 3 12/31/2019 Ancillary Radiology Procedure Marcel Slater, BODY SERVICE TEAM MEMBER Medications 11/24/2019 Orders Only Oncology Danay Fowler MD Malignant neoplasm of right breast, stag e 3 (Primary Dx) 11/11/2019 Office Visit Oncology Marcel Slater, BODY SERVICE TEAM MEMBER Medications 11/03/2019 Orders Only Oncology Nova Ni MD Daniel, Catherine L, MD Shortness of breath (Primary Dx); Cough; Malignant neoplasm of right breast, stage 3; Influenza B; Precordial pain 10/09/2019 Emergency - 10/10/2019 Dinah Rocha, Physician Marcel Slater, BODY SERVICE TEAM MEMBER Malignant neoplasm of right breast, stag e 3 (Primary Dx) 09/16/2019 Office Visit Oncology Yvonne Stout MD Michael, Binu L, BODY SERVICE TEAM MEMBER Erica Scott RN Malignant neoplasm of right breast, stag e 3 (Primary Dx) 09/09/2019 Nurse Only Metastatic breast cancer 09/09/2019 Ancillary Radiology Procedure Marcel Slater, BODY SERVICE TEAM MEMBER Medications 09/09/2019 Orders Only Oncology Marcel Slater, BODY SERVICE TEAM MEMBER Medications 08/24/2019 Orders Only Oncology aMrcel Slater, BODY SERVICE TEAM MEMBER Medications 07/31/2019 Orders Only Oncology Yvonne Stout MD Jefferson, Claudette, FABIEN 07/27/2019 Nurse Only Danay Fowler MD Meza Rios, Laura M, Fellow() Metastatic breast cancer (Primary Dx); Pneumonia 07/22/2019 Office Visit Oncology Danay Fowler MD Jefferson, Claudette, FABIEN Left without seen 07/22/2019 Nurse Only Ameena Mansfield MD Ordonez, Edgardo, MD Chest pain, unspecified type (Primary Dx ); Pneumonia of left upper lobe due to infectious organism; Shortness of breath; Pneumonia 07/05/2019 Hospital - Encounter 07/10/2019 after 06/29/2019 Immunizations Name Administration Dates Next Due Influenza Vaccine 06/02/2018 (Deferred: Dion poon Refused) Influenza Vaccine, 11/07/2017 Seasonal, Injectable PNEUMOCOCCAL 23-VALPS 01/21/2018 (Deferred: Dion poon Refused) VACCINE 25 MCG/0.5 ML INJECTION Tdap [...] Travel Start No recent travel history available. Last Filed Vital Signs Reading Time Taken Comments Vital Sign 128/90 05/11/2020 12:36 AM CDT Blood Pressure 90 05/11/2020 12:36 AM CDT Pulse 36.6 C (97.9 F) 05/11/2020 12:36 AM CDT Temperature 20 05/11/2020 12:36 AM CDT Respiratory Rate 97% 05/11/2020 12:36 AM CDT Oxygen Saturation - - Inhaled Oxygen Concentration 101.4 kg (223 lb 9.6 oz) 05/04/2020 1:52 PM CDT Weight 165.1 cm (5' 5") 05/04/2020 1:52 PM CDT Height 37.21 05/04/2020 1:52 PM CDT Body Mass Index Plan of Treatment Care Team Description Date Type Specialty Danay Fowler MD [address] [facility], [address] [place] [address] [phone] port flush 07/04/2020 Office Visit sb 07/26/2020 Appointment 08/03/2020 Office Visit Oncology Health Maintenance Due Date Last Done Comments Pap Cervical Cancer Scrn 12/09/1987 Colorectal Cancer Scrn 12/09/2007 Annual (FIT/FOBT) Age 50 to 75 IMM Influenza Seasonal 05/19/2020 11/07/2017 Oct to October (>/= 19 yrs) HPV Cervical Cancer Scrn 09/27/2022 09/27/2017, 06/17/2017 Implants Device Identifier Shelf Expiration Date Model / Serial / L ot Implanted Type Area Manufactur er 04/02/2020 [id number] / / [id number] Contour Injection Stent Soft Left: Ureter(s) [employer] Implanted: Qty: 1 on 09/15/2018 by [employer] Titus Durán MD at [facility] Procedures Comments Procedure Name Priority Date/Time Associated Diag nosis CBC Routine 05/27/[address] cancer 12:52 PM CDT COMPREHENSIVE METABOLIC Routine 05/27/2020 Metast [facility] breast cancer PANEL 12:52 PM CDT CBC/DIFF Routine 05/27/[address] cancer 12:52 PM CDT DUPLEX DOPPLER LOWER Routine 05/20/2020 Metastati c breast cancer EXTREMITY VENOUS, 2:53 PM CDT BILATERAL TUMORIMAGE PET/CT SKUL-T Routine 05/20/2020 Metas tatic breast cancer 2:41 PM CDT GLUCOSE POC Routine 05/20/2020 12:[address] CHEST PE PROTOCOL STAT 05/10/2020 SOB (shor tness of breath) 10:03 PM CDT XRAY CHEST 2 VIEWS STAT 05/10/2020 SOB (shortn ess of breath) 9:43 PM CDT CBC STAT 05/10/2020 8:21 PM CDT CBC/DIFF STAT 05/10/2020 8:21 PM CDT BASIC METABOLIC PANEL STAT 05/10/2020 8:21 PM CDT TROPONIN I POC Routine 05/10/2020 7:35 PM CDT ECHG EKG PROC 12 LEAD STAT 05/10/2020 EKG; TRACING ONLY 7:14 PM CDT CBC STAT 05/04/[address] cancer 3:53 PM CDT COMPREHENSIVE METABOLIC STAT 05/04/2020 Metast atic breast cancer PANEL 3:53 PM CDT CBC/DIFF STAT 05/04/[address] cancer 3:53 PM CDT CBC Routine 02/17/2020 Malignant neopl asm of [...] AMP Routine 10/10/2019 PROBE, FLURSV 10:15 AM APPLIANCE SERVICE SUPERVISOR CT CHEST PE PROTOCOL STAT 10/10/2019 Shortness of breath 4:28 AM APPLIANCE SERVICE SUPERVISOR ECHG EKG PROC 12 LEAD Routine 10/10/2019 EKG; TRACING ONLY 2:12 AM APPLIANCE SERVICE SUPERVISOR TROPONIN I STAT 10/10/2019 2:05 AM APPLIANCE SERVICE SUPERVISOR D-DIMER STAT 10/10/2019 2:05 AM APPLIANCE SERVICE SUPERVISOR XRAY CHEST 2 VIEWS STAT 10/09/2019 9:10 PM APPLIANCE SERVICE SUPERVISOR CREATININE POC Routine 10/09/2019 7:18 PM APPLIANCE SERVICE SUPERVISOR BMP POC Routine 10/09/2019 7:15 PM APPLIANCE SERVICE SUPERVISOR TROPONIN I POC Routine 10/09/2019 7:06 PM APPLIANCE SERVICE SUPERVISOR CBC STAT 10/09/2019 7:00 PM APPLIANCE SERVICE SUPERVISOR HIV AG/AB COMBO ROUTINE STAT 10/09/2019 SCREENING 7:00 PM APPLIANCE SERVICE SUPERVISOR CBC/DIFF STAT 10/09/2019 7:00 PM APPLIANCE SERVICE SUPERVISOR ECHG EKG PROC 12 LEAD Routine 10/09/2019 EKG; TRACING ONLY 6:57 PM APPLIANCE SERVICE SUPERVISOR CBC Routine 09/21/2019 Malignant neopl asm of 4:07 PM APPLIANCE SERVICE SUPERVISOR right breast, stage 3 CBC/DIFF Routine 09/21/2019 Malignant neopl asm of 4:07 PM APPLIANCE SERVICE SUPERVISOR right breast, stage 3 COMPREHENSIVE METABOLIC Routine 09/21/2019 Malign ant neoplasm of PANEL 2:34 PM APPLIANCE SERVICE SUPERVISOR right breast, stage 3 TUMORIMAGE PET/CT SKUL-T Routine 09/09/2019 Metas tatic breast cancer 11:30 AM APPLIANCE SERVICE SUPERVISOR GLUCOSE POC Routine 09/09/2019 9:41 AM APPLIANCE SERVICE SUPERVISOR CBC Routine 07/22/2019 Malignant neopl asm of 12:17 PM APPLIANCE SERVICE SUPERVISOR right breast, stage 3 COMPREHENSIVE METABOLIC Routine 07/22/2019 Malign ant neoplasm of PANEL 12:17 PM APPLIANCE SERVICE SUPERVISOR right breast, stage 3 CBC/DIFF Routine 07/22/2019 Malignant neopl asm of 12:17 PM APPLIANCE SERVICE SUPERVISOR right breast, stage 3 CBC Routine 07/10/2019 3:36 AM APPLIANCE SERVICE SUPERVISOR BASIC METABOLIC PANEL Routine 07/10/2019 3:36 AM APPLIANCE SERVICE SUPERVISOR CBC/DIFF Routine 07/10/2019 3:36 AM APPLIANCE SERVICE SUPERVISOR CBC Routine 07/09/2019 3:47 AM APPLIANCE SERVICE SUPERVISOR BASIC METABOLIC PANEL Routine 07/09/2019 3:47 AM APPLIANCE SERVICE SUPERVISOR CBC/DIFF Routine 07/09/2019 3:47 AM APPLIANCE SERVICE SUPERVISOR ECHG EKG PROC 12 LEAD Routine 07/08/2019 EKG; TRACING ONLY 9:39 AM APPLIANCE SERVICE SUPERVISOR CBC Routine 07/08/2019 3:29 AM APPLIANCE SERVICE SUPERVISOR BASIC METABOLIC PANEL Routine 07/08/2019 3:29 AM APPLIANCE SERVICE SUPERVISOR CBC/DIFF Routine 07/08/2019 3:29 AM APPLIANCE SERVICE SUPERVISOR ECHG NON-INVASIVE PROC 07/07/2019 ECHOCARDIOGRAM 2-D W/O 2:12 PM APPLIANCE SERVICE SUPERVISOR CONTRAST (PROSOLVE) BLOOD CULTURE Timed 07/07/2019 11:25 AM APPLIANCE SERVICE SUPERVISOR BLOOD CULTURE Timed 07/07/2019 10:33 AM APPLIANCE SERVICE SUPERVISOR BASIC METABOLIC PANEL Routine 07/07/2019 3:46 AM APPLIANCE SERVICE SUPERVISOR CBC (WITHOUT Routine 07/07/2019 DIFFERENTIAL) 3:46 AM APPLIANCE SERVICE SUPERVISOR INFUSION PUMP Routine 07/06/2019 7:44 AM APPLIANCE SERVICE SUPERVISOR VBG POC Routine 07/06/2019 6:52 AM APPLIANCE SERVICE SUPERVISOR VBG POC Routine 07/06/2019 4:51 AM APPLIANCE SERVICE SUPERVISOR TROPONIN I POC Routine 07/06/2019 3:29 AM APPLIANCE SERVICE SUPERVISOR ECHG EKG PROC 12 LEAD STAT 07/06/2019 EKG; TRACING ONLY 3:17 AM APPLIANCE SERVICE SUPERVISOR TROPONIN I POC Routine 07/06/2019 3:08 AM APPLIANCE SERVICE SUPERVISOR VBG POC Routine 07/06/2019 2:52 AM APPLIANCE SERVICE SUPERVISOR GRAM-POS BLOOD CULTURE Add-on 07/06/2019 2:52 AM APPLIANCE SERVICE SUPERVISOR BLOOD CULTURE STAT 07/06/2019 2:52 AM APPLIANCE SERVICE SUPERVISOR BLOOD CULTURE STAT 07/06/2019 2:52 AM APPLIANCE SERVICE SUPERVISOR TROPONIN I POC Routine 07/06/2019 12:58 AM APPLIANCE SERVICE SUPERVISOR ECHG EKG PROC 12 LEAD STAT 07/06/2019 EKG; TRACING ONLY 12:47 AM APPLIANCE SERVICE SUPERVISOR TROPONIN I POC Routine 07/06/2019 12:36 AM APPLIANCE SERVICE SUPERVISOR CT CHEST PE PROTOCOL STAT 07/06/2019 Chest hill n, unspecified 12:34 AM APPLIANCE SERVICE SUPERVISOR type URINALYSIS STAT 07/05/2019 11:05 PM APPLIANCE SERVICE SUPERVISOR URINALYSIS STAT 07/05/2019 11:05 PM APPLIANCE SERVICE SUPERVISOR XRAY CHEST 2 VIEWS STAT 07/05/2019 Chest pain, unspecified 11:02 PM APPLIANCE SERVICE SUPERVISOR type BMP POC Routine 07/05/2019 9:20 PM APPLIANCE SERVICE SUPERVISOR TROPONIN I POC Routine 07/05/2019 9:18 PM APPLIANCE SERVICE SUPERVISOR CBC STAT 07/05/2019 9:15 PM APPLIANCE SERVICE SUPERVISOR CBC/DIFF STAT 07/05/2019 9:15 PM APPLIANCE SERVICE SUPERVISOR ECHG EKG PROC 12 LEAD Routine 07/05/2019 EKG; TRACING ONLY 9:09 PM APPLIANCE SERVICE SUPERVISOR after 06/29/2019 Results * CBC/Diff (05/27/2020 12:52 PM CDT) Only the most recent of 12 results within the time period is included. WBC 6.1 4.5 - 11.0 K/uL [facility] RBC 4.38 4.20 - 5.40 M/uL [facility] Hemoglobin 13.7 12.0 - 16.0 g/dL [facility] Hematocrit 43.6 37.0 - 47.0 % [facility] MCV 99.5 (H) 82.0 - 92.0 fL [facility] MCH 31.3 27.0 - 32.0 pg [facility] MCHC 31.4 (L) 32.0 - 36.0 g/dL [facility] RDW 57.3 (H) 36.4 - 46.3 fL [facility] Platelet 213 150 - 400 K/uL [facility] Mean Platelet 9.7 9.4 - 12.4 fL [facility] Volume LAB Neutrophil 50.5 34.0 - 70.0 % [facility] Lymphs 38.8 20.0 - 50.0 % [facility] Monocytes 8.4 5.0 - 12.0 % [facility] Eos 2.0 0.7 - 5.0 % [facility] Basos 0.3 0.1 - 1.2 % [facility] Immature 0.2 0.0 - 0.5 % [facility] Granulocytes LAB Neutrophils 3.08 1.56 - 6.13 K/uL [facility] (Absolute) LAB Lymphs 2.36 1.18 - 3.74 K/uL [facility] (Absolute) LAB Monocytes(Absol 0.51 (H) 0.24 - 0.36 K/uL [facility] roger) LAB Eos (Absolute) 0.12 0.04 - 0.36 K/uL [facility] Baso (Absolute) 0.02 0.01 - 0.08 K/uL [facility] Immature Grans 0.01 0.00 - 0.03 K/uL [facility] (Abs) LAB Specimen Blood - Arm, left Performing Organization Address City/State/Zipcode Ph one Number [facility] [address] [phone] * Comprehensive Metabolic Panel (05/27/2020 12:52 PM CDT) Only the most recent of 6 results within the time period is included. Sodium 140 136 - 145 mmol/L [facility] Potassium 4.2 3.5 - 5.1 mmol/L [facility] Chloride 104 98 - 107 mmol/L [facility] CO2 30 21 - 31 mmol/L [facility] Glucose 104 70 - 110 mg/dL [facility] Calcium 9.5 8.6 - 10.3 mg/dL [facility] Urea Nitrogen 18.0 7.0 - 25.0 mg/dL [facility] Creatinine 0.8 0.6 - 1.2 mg/dL [facility] Alkaline 103 34 - 104 U/L [facility] Phosphatase LAB ALT 15 7 - 52 U/L [facility] AST 20 13 - 39 U/L [facility] Bilirubin, 0.6 0.2 - 1.2 mg/dL [facility] Total LAB Total Protein 7.0 6.0 - 8.3 g/dL [facility] GFR, Estimated 73 (L) >=90 mL/min/1.73 m2 [facility] Albumin 3.9 3.7 - 5.3 g/dL [facility] Anion Gap 6 5 - 16 mmol/L [facility] Specimen Blood - Arm, left Performing Organization Address City/State/Zipcode Ph one Number [facility] [address] * DUPLEX DOPPLER LOWER EXTREMITY VENOUS, BILATERAL (05/20/2020 2:53 PM CDT) Specimen Impressions Performed At IMPRESSION: SMS No evidence of deep venous thrombosis o f the proximal lower extremities extending to the calves. Signed By: Zachary Mendez, 05/20/2020 3 :19 PM Narrative Performed At EXAM: Bilateral Lower Extremity Venous Duplex Ultraso und SMS INDICATION: check for DVT, history o f metastatic breast cancer, new left leg pain COMPARISON: Lower extremity Dopplers TECHNIQUE: Gomez scale, color Doppler an d spectral waveform analysis of the deep venous systems of the lower ex tremities was performed. FINDINGS: Right Lower Extremity: Common Femoral: Fully compressible with normal sp ontaneous waveforms. Proximal Greater Saphenous: Fully compressible. Femoral: Fully compressible with normal sp ontaneous waveforms. Normal response to augmentation. Proximal Deep Femoral: Normal spontaneous waveforms. Popliteal: Fully compressible with normal sp ontaneous waveforms. Left Lower Extremity: Common Femoral: Fully compressible with normal sp ontaneous waveforms. Proximal Greater Saphenous: Fully compressible. Femoral: Fully compressible with normal spontaneous waveforms. Normal response to augmentation. Proximal Deep Femoral: Normal spontaneous waveforms. Popliteal: Fully compressible with normal spontaneous waveforms. Procedure Note Interface, Rad/Mammog In - 05/20/2020 3:24 PM CDT EXAM: Bilateral Lower Extremity Venous Duplex Ultrasound INDICATION: check for DVT, history of metastatic breast cancer, new left leg pain COMPARISON: Lower extremity Dopplers 06/10/2017 TECHNIQUE: Gomez scale, color Doppler and spectral waveform analysis of the deep venous systems of the lower extremities was performed. FINDINGS: Right Lower Extremity: Common Femoral: Fully compressible with normal spontaneous waveforms. Proximal Greater Saphenous: Fully compressible. Femoral: Fully compressible with normal spontaneous waveforms. Normal response to augmentation. Proximal Deep Femoral: Normal spontaneous waveforms. Popliteal: Fully compressible with normal spontaneous waveforms. Left Lower Extremity: Common Femoral: Fully compressible with normal spontaneous waveforms. Proximal Greater Saphenous: Fully compressible. Femoral: Fully compressible with normal spontaneous waveforms. Normal response to augmentation. Proximal Deep Femoral: Normal spontaneous waveforms. Popliteal: Fully compressible with normal spontaneous waveforms. IMPRESSION IMPRESSION: No evidence of deep venous thrombosis of the proximal lower extremities extending to the calves. Signed By: Zachary Mendez, 05/20/2020 3:19 PM Performing Organization Address City/State/Zipcode Ph one Number SMS * TUMORIMAGE PET/CT SKUL-T (05/20/2020 2:41 PM CDT) Only the most recent of 3 results within the time period is included. Specimen Impressions Performed At IMPRESSION: SMS 1. No evidence for metastatic disease . 2. Stable right apical fibronodular s carring with SUV uptake equal to background and stable since the prior s tudy. No suspicious pulmonary nodules identified. 3. Bandlike area of increased uptake along the inferior margin of the mastectomy site likely secondary to pos tsurgical changes. 4. Stable anterior subcutaneous soft tissue nodules with mildly increased uptake compared to the prior study that are nonspecific. Close attention on follow-up. Signed By: Sean Jaramillo MD, 05/20/2020 4:14 PM Narrative Performed At EXAM: PET/CT with F-18 FDG [facility] CPT code: 96489 (tumor imaging, skull base to thighs) EXAM: TUMORIMAGE PET/CT SKUL-T DATE: 05/20/2020 2:42 PM INDICATION: Breast cancer, assess treat ment response ADDITIONAL INFORMATION: Breast cancer w ith history of metastatic pulmonary nodules. COMPARISON STUDIES: PET/CT 12/31/2019, . CT PE protocol 05/10/2020, chest CT 09/22/2018. SERUM GLUCOSE LEVEL: 102 mg/dL RADIOPHARMACEUTICAL: F-18 FDG 14.33 mCi IV left antecubital UPTAKE TIME: 59 minutes DLP: 1531 mGy-cm Could the patient possibly be ? : No. TECHNIQUE: The study was performed usin g in-line PET/CT from the skull base to the mid-thigh without iodinated contrast. Cross-sectional and 3D (MIP) images, attenuation correction with CT and co-registration of the PET CT data were generated. SUV's reported are max SUV's unless indicated otherwise. FINDINGS: Medical devices/hardware/lines: Left ce ntral venous Port-A-Cath. Postcholecystectomy clips. Head and neck: Brain. Normal. Orbits. Normal. Sinuses. Normal. Nasopharynx. Normal.. Land Measurer, parotid, parapharyngeal spa severino. Normal. Pharyngeal mucosal space. Normal. Submandibular space:Normal. Oropharynx/tongue. Normal. Tonsils. Normal. Hypopharynx. Normal. Larynx. Normal. Thyroid. The visible portions are unr emarkable. Cervical Lymph Node stations.No adenopa thy is seen. Axilla: Unremarkable. Mediastinal and Hilar Lymph Nodes: No adenopathy is seen. Heart.Mild to moderately enlarged. Rylan nary artery calcified plaque. Lungs. 1. Right apical scarring with tiny stab le nodules dating back to 09/12/2018 and 03/19/2018 that is new sinc e 06/10/2017 consistent with post XRT changes. SUV = 4.4 equal to backgro und. 2. Mosaic perfusion that is stable. Liver. Normal. Biliary. Normal. Gallbladder. Surgically absent. Pancreas. Mild atrophy. Spleen. Normal. Adrenals. Normal. Kidneys.Normal. Bladder. Decompressed. Reproductive tract. Status post GALI/ BSO. Mesentery/Retroperitoneum. Normal. Abdomen/Pelvis Lymph Nodes: No adenopat hy is seen. GI tract. The stomach, large and smal l bowel are unremarkable. Vessels. Unremarkable. Bones. Unremarkable. Soft tissues. 1. 2 left and one right small soft tiss ue nodules within the anterior subcutaneous tissues each measuring les s than 0.6 cm (series 3, image 190, 213, 205). SUV = 5.6, 5.2, and 2.1 . Previously SUV = 4.5, 3.5, 1.5. 2. Bandlike area of mild increased FDG uptake seen along the lower anterior chest wall along the inferior margin of the mastectomy site. Procedure Note Interface, Rad/Mammog In - 05/20/2020 4:19 PM CDT EXAM: PET/CT with F-18 FDG CPT code: 05758 (tumor imaging, skull base to thighs) EXAM: TUMORIMAGE PET/CT SKUL-T DATE: 05/20/2020 2:42 PM INDICATION: Breast cancer, assess treatment response ADDITIONAL INFORMATION: Breast cancer with history of metastatic pulmonary nodules. COMPARISON STUDIES: PET/CT 12/31/2019, 10/07/2018. CT PE protocol 05/10/2020, chest CT 09/22/2018. SERUM GLUCOSE LEVEL: 102 mg/dL RADIOPHARMACEUTICAL: F-18 FDG 14.33 mCi IV left antecubital UPTAKE TIME: 59 minutes DLP: 1531 mGy-cm Could the patient possibly be ?: No. TECHNIQUE: The study was performed using in-line PET/CT from the skull base to the mid-thigh without iodinated contrast. Cross-sectional and 3D (MIP) images, attenuation correction with CT and co-registration of the PET CT data were generated. SUV's reported are max SUV's unless indicated otherwise. FINDINGS: Medical devices/hardware/lines: Left central venous Port-A-Cath. Postcholecystectomy clips. Head and neck: Brain. Normal. Orbits. Normal. Sinuses. Normal. Nasopharynx. Normal.. Land Measurer, parotid, parapharyngeal spaces. Normal. Pharyngeal mucosal space. Normal. Submandibular space:Normal. Oropharynx/tongue. Normal. Tonsils. Normal. Hypopharynx. Normal. Larynx. Normal. Thyroid. The visible portions are unremarkable. Cervical Lymph Node stations.No adenopathy is seen. Axilla: Unremarkable. Mediastinal and Hilar Lymph Nodes: No adenopathy is seen. Heart.Mild to moderately enlarged. Coronary artery calcified plaque. Lungs. 1. Right apical scarring with tiny stabl e nodules dating back to 09/12/2018 and 03/19/2018 that is new since 06/10/2017 consistent with post XRT changes. SUV = 4.4 equal to background. 2. Mosaic perfusion that is stable. Liver. Normal. Biliary. Normal. Gallbladder. Surgically absent. Pancreas. Mild atrophy. Spleen. Normal. Adrenals. Normal. Kidneys.Normal. Bladder. Decompressed. Reproductive tract. Status post GALI/BSO. Mesentery/Retroperitoneum. Normal. Abdomen/Pelvis Lymph Nodes: No adenopathy is seen. GI tract. The stomach, large and small bowel are unremarkable. Vessels. Unremarkable. Bones. Unremarkable. Soft tissues. 1. 2 left and one right small soft tissu e nodules within the anterior subcutaneous tissues each measuring less than 0.6 cm (series 3, image 190, 213, 205). SUV = 5.6, 5.2, and 2.1. Previously SUV = 4.5, 3.5, 1.5. 2. Bandlike area of mild increased FDG u ptake seen along the lower anterior chest wall along the inferior margin of the mastectomy site. IMPRESSION IMPRESSION: 1. No evidence for metastatic disease. 2. Stable right apical fibronodular sca rring with SUV uptake equal to background and stable since the prior study. No suspicious pulmonary nodules identified. 3. Bandlike area of increased uptake al layla the inferior margin of the mastectomy site likely secondary to postsurgical changes. 4. Stable anterior subcutaneous soft ti ssue nodules with mildly increased uptake compared to the prior study that are nonspecific. Close attention on follow-up. Signed By: Sean Jaramillo MD, 05/20/2020 4:14 PM Performing Organization Address [facility] one Number SMS * POCT GLUCOSE POC docked device (05/20/2020 12:50 PM CDT) Only the most recent of 3 results within the time period is included. Glucose POC 102 74 - 106 mg/dL [facility] Specimen Blood Performing Organization Address [facility] one Number [facility] [place] [phone] * CT CHEST PE PROTOCOL (05/10/2020 10:03 PM CDT) Only the most recent of 3 results within the time period is included. Specimen Impressions Performed At IMPRESSION: SMS 1. No pulmonary emboli. 2. Cardiomegaly, trace right pleural effusion, and mild interstitial edema. If the report is "FINALIZED" it indicat es that the attending/staff radiologist has reviewed the images and agrees with the resident's interpretation. Dictated By: David Jett MD, 05/10/2020 1 0:26 PM I have reviewed the study and agree wit h the findings in this report. Signed By: Robin Garcia MD, 05/11/2020 12:11 AM Narrative Performed At EXAM: CT Chest WITH contrast (PE Protocol) SMS INDICATION: PE suspected, high pretest prob COMPARISON: Chest CT dated 10/10/2019. TECHNIQUE: Chest was scanned utilizing a multidete [...] 350 COMPLICATIONS: None RADIATION DOSE: Total DLP: 272 mGy*cm Estimated effective dose: (DLP x 0.014 x size factor) mSv CTDIvol has been reviewed. It is below the limits set by the Radiation Protocol Committee (RPC). FINDINGS: LINES/ TUBES: Left chest wall port with tip terminating at the low SVC. LUNGS AND AIRWAYS: No filling defect is identified within the pulmonary arteries to the segmental level. Subp leural reticulations of the right anterior lung may be pharmacy services representative of postradiation change. Stable right apical scarring. Mosaic attenua tion pattern and mild interlobular septal thickening, likely representativ e of mild interstitial edema. PLEURA: Trace right pleural effusion. N o pneumothorax. HEART AND MEDIASTINUM: The thyroid glan d is normal. Post surgical changes of right axillary lymph node di ssection, otherwise, no mediastinal, hilar or axillary lymphade nopathy. Cardiomegaly. There is no pericardial effusion. Main pulmonary artery measures 3.0 cm in diameter. UPPER ABDOMEN: Cholecystectomy. BONES: Stable 0.5 cm sclerotic focus in the posterior aspect of the T6 vertebral body, likely benign. SOFT TISSUES: Postsurgical changes of r ight radical mastectomy and axillary lymph node dissection. Punctat e left breast calcification. Procedure Note Interface, Rad/Mammog In - 05/11/2020 12:16 AM CDT EXAM: CT Chest WITH contrast (PE Protocol) INDICATION: PE suspected, high pretest prob COMPARISON: Chest CT dated 10/10/2019. TECHNIQUE: Chest was scanned utilizing a multidetector helical scanner from the lung apex through the level of the diaphragm after administration of IV contrast. Thin section reconstructions were obtained with special concentration on the pulmonary arteries. Coronal and sagittal reformations were obtained. Pulmonary embolism protocol was performed. IV CONTRAST: 100 mL of Omnipaque 350 COMPLICATIONS: None RADIATION DOSE: Total DLP: 272 mGy*cm Estimated effective dose: (DLP x 0.014 x size factor) mSv CTDIvol has been reviewed. It is below the limits set by the Radiation Protocol Committee (RPC). FINDINGS: LINES/ TUBES: Left chest wall port with tip terminating at the low SVC. LUNGS AND AIRWAYS: No filling defect is identified within the pulmonary arteries to the segmental level. Subpleural reticulations of the right anterior lung may be pharmacy services representative of postradiation change. Stable right apical scarring. Mosaic attenuation pattern and mild interlobular septal thickening, likely pharmacy services representative of mild interstitial edema. PLEURA: Trace right pleural effusion. No pneumothorax. HEART AND MEDIASTINUM: The thyroid gland is normal. Post surgical changes of right axillary lymph node dissection, otherwise, no mediastinal, hilar or axillary lymphadenopathy. Cardiomegaly. There is no pericardial effusion. Main pulmonary artery measures 3.0 cm in diameter. UPPER ABDOMEN: Cholecystectomy. BONES: Stable 0.5 cm sclerotic focus in the posterior aspect of the T6 vertebral body, likely benign. SOFT TISSUES: Postsurgical changes of right radical mastectomy and axillary lymph node dissection. Punctate left breast calcification. IMPRESSION IMPRESSION: 1. No pulmonary emboli. 2. Cardiomegaly, trace right pleural ef fusion, and mild interstitial edema. If the report is "FINALIZED" it indicates that the attending/staff radiologist has reviewed the images and agrees with the resident's interpretation. Dictated By: David Jett MD, 05/10/2020 10:26 PM I have reviewed the study and agree with the findings in this report. Signed By: Robin Garcia MD, 05/11/2020 12:11 AM Performing Organization Address City/State/Zipcode Ph one Number SMS * XRAY CHEST 2 VIEWS (05/10/2020 9:43 PM CDT) Only the most recent of 3 results within the time period is included. Specimen Impressions Performed At IMPRESSION: SMS Mildly enlarged cardiac silhouette, corinne tral vascular congestion, and mild interstitial edema. Underlying/dev eloping pneumonia cannot be excluded in the appropriate clinical co ntext. If the report is "FINALIZED" it indicat es that the attending/staff radiologist has reviewed the images and agrees with the resident's interpretation. Dictated By: Sebas Daniels MD, 0 9:50 PM I have reviewed the study and agree wit h the findings in this report. Signed By: Robin Garcia MD, 05/10/2020 11:59 PM Narrative Performed At EXAMINATION: XRAY CHEST 2 VIEWS [facility] INDICATION: CP COMPARISON: Chest radiograph 10/09/2019 FINDINGS: TUBES and LINES: Left IJ Port-A-Cath wi th tip in the distal SVC. LUNGS: Lungs are well inflated. No foca l consolidations. Mild central vascular congestion and interstitial ed ana. PLEURA: No effusions. No pneumothorax. HEART AND MEDIASTINUM: Mildly enlarged cardiac silhouette. BONES AND SOFT TISSUES: Diffuse deminer alization the bones. Degenerative changes of the thoracic spine and shoul ders. Postsurgical changes from right mastectomy and right axillary nod al dissection clips. UPPER ABDOMEN: No free air under the di aphragm. There are cholecystectomy clips. Procedure Note Interface, Rad/Mammog In - 05/11/2020 12:04 AM CDT EXAMINATION: XRAY CHEST 2 VIEWS INDICATION: CP COMPARISON: Chest radiograph 10/09/2019 FINDINGS: TUBES and LINES: Left IJ Port-A-Cath with tip in the distal SVC. LUNGS: Lungs are well inflated. No focal consolidations. Mild central vascular congestion and interstitial edema. PLEURA: No effusions. No pneumothorax. HEART AND MEDIASTINUM: Mildly enlarged cardiac silhouette. BONES AND SOFT TISSUES: Diffuse demineralization the bones. Degenerative changes of the thoracic spine and shoulders. Postsurgical changes from right mastectomy and right axillary bill dissection clips. UPPER ABDOMEN: No free air under the diaphragm. There are cholecystectomy clips. IMPRESSION IMPRESSION: Mildly enlarged cardiac silhouette, central vascular congestion, and mild interstitial edema. Underlying/developing pneumonia cannot be excluded in the appropriate clinical context. If the report is "FINALIZED" it indicates that the attending/staff radiologist has reviewed the images and agrees with the resident's interpretation. Dictated By: Sebas Daniels MD, 05/10/2020 9:50 PM I have reviewed the study and agree with the findings in this report. Signed By: Robin Garcia MD, 05/10/2020 11:59 PM Performing Organization Address City/State/Zipcode Ph one Number SMS * Basic Metabolic Panel (05/10/2020 8:21 PM CDT) Only the most recent of 5 results within the time period is included. Sodium 143 136 - 145 mmol/L [facility] Potassium 4.0 3.5 - 5.1 mmol/L [facility] Chloride 110 (H) 98 - 107 mmol/L [facility] CO2 32 (H) 21 - 31 mmol/L [facility] Urea Nitrogen 20.0 7.0 - 25.0 mg/dL [facility] Creatinine 0.8 0.6 - 1.2 mg/dL [facility] Glucose 102 70 - 110 mg/dL [facility] Calcium 9.3 8.6 - 10.3 mg/dL [facility] GFR, Estimated 73 (L) >=90 mL/min/1.73 m2 [facility] Anion Gap 1 (L) 5 - 16 mmol/L [facility] Specimen Blood Performing Organization Address [facility] one Number [facility] [address] [place] [address] * POCT TROPONIN I POC docked device (05/10/2020 7:35 PM CDT) Only the most recent of 7 results within the time period is included. Troponin POC 0.01Comment: Physician 0.00 - 0.08 ng/mL [facility] Notified OF CARE LABORATORY Specimen Blood, venous Performing Organization Address [facility] one Number [facility] [address] [place] [address] [phone] LABORATORY * 12 LEAD EKG (05/10/2020 7:14 PM CDT) [address] [facility] Test Date: 2020-05-10 Pat Name: DANIEL PARIKH Department: 5520 Room: Gender: F Strainer Tender: : 1955 Requested By: SEN Holloway Order Number: [id number] Reading MD: Daniel Interiano M.D. Measurements Intervals [place] Rate: 89 P: 47 NH: 190 QRS: -41 QRSD: 157 T: 99 QT: 415 QTc: 506 Interpretive Statements SINUS RHYTHM POSSIBLE LEFT ATRIAL ENLARGEMENT LEFT AXIS DEVIATION LEFT BUNDLE BRANCH BLOCK Electronically Signed On 05-10-2020 19:13:10 CDT by Daniel Interiano M.D. Specimen Performing Organization Address [facility] one Number [facility] * Urinalysis (01/14/2020 4:05 PM CDT) Only the most recent of 2 results within the time period is included. Color Yellow Colorless, Straw, [facility] Clarity Cloudy (A) Clear [facility] Spec [place], 1.027 1.001 - 1.035 [facility] Ur [...] Ur LABORATORY Specimen Urine Performing Organization Address [facility] one Number [facility] [address] [place] [address] * Urine Culture (01/14/2020 4:05 PM CDT) Pathologist [facility] Urine Culture Urogenital debby [facility] Specimen Urine - Clean Catch Mid Stream Performing Organization Address [facility] one Number [facility] [address] [place] [address] [phone] * Influenza A/B and RSV PCR (10/10/2019 10:15 AM APPLIANCE SERVICE SUPERVISOR) Pathologist [facility] Influenza A Not detected Not detected [facility] Influenza B Detected (A) Not detected [facility] RSV Not detected Not detected [facility] Specimen Nasal/Nasopharyngeal Swab - Nasopharynx Narrative Performed At This test utilizes FDA cleared Becky co bas Influenza A/B & RSV real-time RT-PCR [facility] assay for qualitative detection and dis crimination of Influenza A virus, Influenza B virus and Respiratory Syncy tial virus (RSV). Additional testing is required to differentiate any specific Influenza A subtypes or strains or specific RSV subgroups. Performing Organization Address [facility] one Number [facility] [address] [place] [address] * 12 LEAD EKG (10/10/2019 2:12 AM APPLIANCE SERVICE SUPERVISOR) Pathologist [facility] Test Date: 2019-10-10 Pat Name: DANIEL PARIKH Department: 5520 Room: Gender: F Strainer Tender: : 1955 Requested By: NOVA NI Order Number: [id number] Reading MD: Daniel Interiano M.D. Measurements Intervals [place] Rate: 81 P: 19 NH: 173 QRS: -17 QRSD: 158 T: 98 QT: 460 QTc: 536 Interpretive Statements SINUS RHYTHM POSSIBLE LEFT ATRIAL ENLARGEMENT LEFT BUNDLE BRANCH BLOCK Electronically Signed On 10-10-2019 4:07:07 APPLIANCE SERVICE SUPERVISOR by Daniel Interiano M.D. Specimen Performing Organization Address [facility] one Number [facility] * Troponin I (10/10/2019 2:05 AM APPLIANCE SERVICE SUPERVISOR) [facility] Troponin I <0.03 <0.04 ng/mL [facility] Specimen Blood Performing Organization Address [facility] one Number [facility] [address] [place] [address] * D-Dimer (10/10/2019 2:05 AM APPLIANCE SERVICE SUPERVISOR) [facility] D-Dimer 1.18 (H)Comment: Values of 0.22 - 0.48 ug/mL [facility] quantitative D-Dimer less than FEU LABORAT ORY 0.40 ug/mL FEU have been reported to be associated with a low probability of deep vein thrombosis/pulmonary embolism. This test alone should not be used to rule out DVT/PE. Specimen Blood Performing Organization Address [facility] one Number [facility] [address] [place] [address] * POCT CREATININE POC docked device (10/09/2019 7:18 PM APPLIANCE SERVICE SUPERVISOR) [facility] Creatinine POC 0.7 0.6 - 1.3 mg/dL [facility] GFR, Estimated >90 >=90 mL/min/1.73 m2 [facility] Specimen Blood, venous Performing Organization [facility] one Number [facility] [address] [place] [address] * POCT BMP POC docked device (10/09/2019 7:15 PM APPLIANCE SERVICE SUPERVISOR) Only the most recent of 2 results [...] Hematocrit POC 41.0 37.0 - 47.0 % [facility] Specimen Blood, venous Performing Organization Address [facility] one Number [facility] [address] [place] [address] [phone] * HIV: unless the patient is HIV positive (10/09/2019 7:00 PM APPLIANCE SERVICE SUPERVISOR) Pathologist [facility] HIV Ag/Ab Combo Negative Negative [facility] Specimen Blood Performing Organization Address [facility] one Number [facility] [address] [place] [address] [phone] * 12 LEAD EKG (10/09/2019 6:57 PM APPLIANCE SERVICE SUPERVISOR) Pathologist [facility] [address] [facility] Test Date: 2019-10-09 Pat Name: DANIEL PARIKH Department: 5520 Room: Gender: F Strainer Tender: [id number] : 1955 Requested By: OBDULIA Lazcano Order Number: [id number] Reading MD: tiara shen Measurements Intervals [place] Rate: 79 P: 45 NH: 167 QRS: -30 QRSD: 156 T: 88 QT: 452 QTc: 520 Interpretive Statements SINUS RHYTHM POSSIBLE LEFT ATRIAL ENLARGEMENT [-0.1mV P WAVE IN V1/V2] LEFT BUNDLE BRANCH BLOCK [120+ ms QRS DURATION, 80+ ms Q/S IN V1/V2, 85+ ms R IN I/aVL/V5/V6] Reviewed by Electronically Signed On 10-09-2019 20:21:08 APPLIANCE SERVICE SUPERVISOR by tiara shen Specimen Performing Organization Address [facility] one Number SMS * 12 LEAD EKG (07/08/2019 9:39 AM APPLIANCE SERVICE SUPERVISOR) 12 LEAD EKG FOR SMS [facility] Test Date: 2019-07-08 Pat Name: DANIEL PARIKH Department: [facility] Room: Gender: F Strainer Tender: [id number] : 1955 Requested By: VAIBHAV KHAN Order Number: [id number] Reading MD: Prabha Caballero MD Measurements Intervals [place] Rate: 76 P: 32 NH: 165 QRS: 2 QRSD: 158 T: 53 QT: 460 QTc: 517 Interpretive Statements Sinus rhythm Left bundle branch block Electronically Signed On 07-08-2019 12:51:48 APPLIANCE SERVICE SUPERVISOR by Prabha Caballero MD Specimen Performing Organization Address [facility] one Number SMS * TRANSTHORACIC ECHO (TTE) (07/07/2019 2:12 PM APPLIANCE SERVICE SUPERVISOR) TRANSTHORACIC Transthoracic [facility] ECHO (TTE) Echo Report DANIEL ZHU Age: 63 Gender: F : 1955 Exam Date: 07/07/2019 14:12 Exam Location: [facility] Echo Ordering Phys: VAIBHAV KHAN Referring Phys: Reading Phys: Prabha Caballero MD Fellow Phys: Fellow Phys: Bobcat Operator: Andrew Oswald Reason For Exam: Indications: CoNS w/ mecA, staph epi bacteremia. evaluate for endocarditis. 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 Blood Culture No growth 5 days [facility] Specimen Blood - Arm, left Performing Organization Address City/[facility] one Number [facility] [address] [place], [place] [address] [phone] * CBC (without differential) (07/07/2019 3:46 AM APPLIANCE SERVICE SUPERVISOR) WBC 8.3 4.5 - 11.0 K/uL [facility] RBC 3.38 (L) 4.20 - 5.40 M/uL [facility] Hemoglobin 11.1 (L) 12.0 - 16.0 g/dL [facility] Hematocrit 33.8 (L) 37.0 - 47.0 % [facility] MCV 100.0 (H) 82.0 - 92.0 fL [facility] MCH 32.8 (H) 27.0 - 32.0 pg [facility] MCHC 32.8 32.0 - 36.0 g/dL [facility] RDW 52.0 (H) 36.4 - 46.3 fL [facility] Platelet 170 150 - 400 K/uL [facility] Mean Platelet 10.3 9.4 - 12.4 fL [facility] Volume [facility] Percent NRBC 0.0 % [facility] Specimen Blood Performing Organization Address [facility] one Number [facility] [address] [place] [address] * POCT VBG POC docked device (07/06/2019 6:52 AM APPLIANCE SERVICE SUPERVISOR) Only the most recent of 3 results [...] LABORATORY Specimen Blood, venous Performing Organization Address [facility] one Number [facility] [address] [place] [address] * 12 LEAD EKG (07/06/2019 3:17 AM APPLIANCE SERVICE SUPERVISOR) [address] [facility] Test Date: 2019-07-06 Pat Name: DANIEL PARIKH Department: 5520 Room: [facility] Gender: F Strainer Tender: [id number] : 1955 Requested By: AMEENA MANSFIELD Order Number: [id number] Reading MD: Dot Capone Measurements Intervals [place] Rate: 93 P: -6 NH: 143 QRS: -21 QRSD: 149 T: 117 QT: 383 QTc: 479 Interpretive Statements SINUS RHYTHM LEFT BUNDLE BRANCH BLOCK [120+ ms QRS DURATION, 80+ ms Q/S IN V1/V2, 85+ ms R IN I/aVL/V5/V6] Reviewed by Electronically Signed On 07-06-2019 10:57:43 APPLIANCE SERVICE SUPERVISOR by Dot Capone Specimen Performing Organization Address City/State/Zipcode Ph one Number SMS * Gram-Pos Blood Culture (07/06/2019 2:52 AM APPLIANCE SERVICE SUPERVISOR) Staphylococcus Not Detected Not Detected [facility] [...] Performed At This test is performed on [employer] System utilizing reverse [facility] public information director (RT), polymerase chain re action (PCR) and array hybridization, FDA cleared Decurateigene Gram-Positive Blood Cu lture Nucleic Acid Test for qualitative multiplex detection and identification of potentially pathogenic gram-positive bacteria directly on blood culture kaylin les identified as positive by continuous monitoring blood culture system and whi ch contain gram-positive bacteria. "Not Detected" results for antimicrobial res istance genes should not be interpreted as confirming antimicrobial susceptibil ity of detected organisms. Antimicrobial resistance may be prese nt by mechanisms not detected by the BC-GP panel. Performing Organization Address [facility] one Number [facility] [address] [place] [address] * 12 LEAD EKG (07/06/2019 12:47 AM APPLIANCE SERVICE SUPERVISOR) [address] [facility] Test Date: 2019-07-06 Pat Name: DANIEL PARIKH Department: 5520 Room: [facility] Gender: F Strainer Tender: [id number] : 1955 Requested By: AMEENA MANSFIELD Order Number: [id number] Reading MD: Dot Capone Measurements Intervals [place] Rate: 93 P: -10 [place]: 146 QRS: -13 QRSD: 150 T: 125 QT: 391 QTc: 487 Interpretive Statements SINUS RHYTHM LEFT BUNDLE BRANCH BLOCK [120+ ms QRS DURATION, 80+ ms Q/S IN V1/V2, 85+ ms R IN I/aVL/V5/V6] Reviewed by Electronically Signed On 07-06-2019 10:57:51 APPLIANCE SERVICE SUPERVISOR by Dot Capone Specimen Performing Organization Address [facility] one Number [facility] * 12 LEAD EKG (07/05/2019 9:09 PM APPLIANCE SERVICE SUPERVISOR) [address] [facility] Test Date: 2019-07-05 Pat Name: DANIEL PARIKH Department: 5520 Room: [facility] Gender: F Strainer Tender: [id number] : 1955 Requested By: SEN Holloway Order Number: [id number] Reading MD: Dot Capone Measurements Intervals [place] Rate: 93 P: -10 [place]: 146 QRS: -35 QRSD: 154 T: 91 QT: 390 QTc: 487 Interpretive Statements SINUS RHYTHM POSSIBLE LEFT ATRIAL ENLARGEMENT [-0.1mV P WAVE IN V1/V2] MARKED LEFT AXIS DEVIATION [QRS AXIS < -30] LEFT BUNDLE BRANCH BLOCK [120+ ms QRS DURATION, 80+ ms Q/S IN V1/V2, 85+ ms R IN I/aVL/V5/V6] Electronically Signed On 07-06-2019 10:57:53 APPLIANCE SERVICE SUPERVISOR by Dot Capone Specimen Performing Organization Address City/State/Zipcode Ph one Number SMS after 06/29/2019 Insurance Type Payer Benefit Subscriber ID Effective Phone Address Plan / Dates Group MEDICARE MEDICARE xxxxxxxxxxx 2019- [phone] PART A & B Present [id number] [place] [address] [facility] PL[facility] FINANCIAL xxxxxxx 2019-2 [address] [facility] / [place] [address] Advance Directives Date Inactivated Comments Code Status Date Activated 10/10/2019 3:34 PM Full Code 10/10/2019 6:02 AM 07/10/2019 4:34 PM Full Code 07/10/2019 11:48 AM 11/14/2018 4:43 PM Full Code 11/13/2018 4:36 PM 09/16/2018 3:19 PM Full Code 09/12/2018 2:37 AM 01/22/2018 5:13 PM Full Code 01/21/2018 6:07 PM
--- OUTSIDE RECORDS SUMMARY | 2020-06-29 13:22 | XMS REPORT | Continuity of Care Document ---
Author Author [facility] t Organization [facility] Address [address] [place] [id number] Phone Unavailable Care Team Providers Care Dean Of Graduate Studies Name Role Phone NONSTAFF PCP Unavailable Bryon GOLD, Amie Rod Attphys Abner Robertasher Physician, Dinah Attphys [phone] Dusty CONN, Mora Attphys Unavailable Richard MARQUEZ, S Hector Attphys Fransisco Fellow(), R Yesenia Attphys [phone] Janeth MARQUEZ, Nicki Jon Attphys Franco COX Attphys Unavailable JAD ROSARIO Attphys Unavailable Ratna MARQUEZ, Michael Rios Attphys Sommer MARQUEZ, H Nancy Attphys Celia Martinez MD, Krystal Attphys [phone] Crystal [facility] Unavailable Argelia MARQUEZ, Ariana Russell Attphys Raine MARQUEZ, Abimael Attphys Jermaine MARQUEZ, L Milly Attphys Tyler CONN, Erica Attphys Unavailable [place] Fellow(), Flaquita Garcia Attphys [phone] Kayla MARQUEZ, Guillermo Attphys Rivera MARQUEZ, Brigido Attphys Payers Payer Name Policy Type Policy Number Effective Date Expiration Date Germain epps MEDICAREMEDICARE PART A & [id number], [place] [address] xxxxxxxxxxx 2019 00:00:00 [facility] PLANFINANCIAL ASSISTANCE PROGRAMxxx [id number] [place] [address] xxxxxxx 2019 00:00:00 10-16 23:59:59 [facility] Medicare A & B [id number] 2019 00:00:00 [facility] Advance Directives Directive Decision Effective Date Termination Date Comments Sour ce Yes N/A NOHEMI [facility] Problems Condition Name Condition Details Condition Category Status Onset Date Resolution Date Last Treatment Date Treating Clinician Comments Source Syncope Syncope Disease Active 2019-10-10 00:00:00 [facility] Pneumonia Pneumonia Disease Active 2019-07-07 00:00:00 [facility] Abdominal pain Abdominal pain Disease Active 2019-07-07 00:00:00 [facility] Elevated CA-125 Elevated CA-125 Disease Active 2018-03-31 00:00:00 [facility] Urinary incontinence Urinary incontinence Disease Active 00:00:00 [facility] S/P right mastectomy S/P right mastectomy Disease Active 00:00:00 [facility] 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 2017-08-09 00:00:00 [facility] ealth Encounter for dental exam and cleaning w/o abnormal fi ndings Encounter for dental exam and cleaning w/o abnormal findings Disease Active 2017-05-27 00:00:00 [facility] BRCA1 genetic carrier BRCA1 genetic carrier Disease Active 201 02-23-11 00:00:00 [facility] Breast cancer, stage 3 Breast cancer, stage 3 Disease Active 2017-02-27 00:00:00 [facility] Insect bite Problem Active [facility] Lymphedema Problem Active [facility] Fall Problem [facility] Closed head injury Problem [facility] Contusion of scalp Problem [facility] Breast hematoma Breast hematoma Disease Active [facility] Chest pain Chest pain Disease Active [facility] PE (pulmonary thromboembolism) PE (pulmonary thromboembolism) Disease Active [facility] 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 Dis ease Active [facility] Pre-diabetes Pre-diabetes Disease Active [facility] Influenza B Influenza B Disease Active [facility] Acute on chronic congestive heart failure Acute on chr onic congestive heart failure Disease Active [facility] History of pulmonary embolism History of pulmonary embolism Disease Active [facility] Right upper lobe consolidation Right upper lobe consolidation Disease Active [facility] Left bundle branch block Left bundle branch block Disease Active [facility] 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 [facility] Peripheral polyneuropathy Peripheral polyneuropathy Disease Active [facility] Cough Cough Disease Active [facility] alth Pneumonia of left upper lobe due to infectious organis m Pneumonia of left upper lobe due to infectious organism Disease Active [facility] SOB (shortness of breath) SOB (shortness of breath) Disease Active [facility] Bacteremia Bacteremia Disease Active [facility] Allergies, Adverse Reactions, Alerts Allergy Name Allergy Type Status Severity Reaction(s) Onset Date Inacti ve Date Treating Clinician Comments Source Amoxicillin Allergy to substance Active 2020-06-19 00:00:00 [facility] Amoxicillin Allergy to substance Active Moderate ITCHY 2020-04-14 00: 00:00 [facility] Lisinopril Propensity to adverse reactions to drug Active 2018-03-11 00:00:00 Cough [facility] Amoxicillin Propensity to adverse reactions to drug Active Rash, Itching 2017-08-05 00:[facility]00 [facility] Pen[facility]ill[facility] Propensity to adverse reactions to drug Active 2013-10-23 00:00:00 [facility] Family History Family Member Diagnosis Comments Start Date Stop Date Source Natural mother Cancer [facility] Social History Social Habit Start Date Stop Date Quantity Comments Source Sex Assigned At [facility] Alcohol intake 2020-06-01 00:00:00 2020-06-01 00:00:00 Current drinker of alcohol (finding) [facility] SDOH Food Worry 2018-12-01 00:00:00 2018-12-01 00:00:00 1 [facility] Food Scarcity 2018-12-01 00:00:00 2018-12-01 00:00:00 1 [facility] Smoking Status Start Date Stop Date Source Unknown if ever smoked [facility] Never smoker [facility] Medications Ordered Medication Name Filled Medication Name Start Date Stop Da te Current Medication? Ordering Clinician Indication Dosage Frequency Signature (SIG) Comments Components Source naproxen (NAPROSYN) 500 mg tablet 2020-05-11 00:00:00 Yes Other chest pain 500mg Take 1 tablet by mouth 2 times daily as needed for Pain. [facility] furosemide (LASIX) 40 mg tablet 2020-05-11 00:00:00 Yes Chemotherapy induced cardiomyopathy 40mg QD Take 1 tablet by mouth daily. [facility] heparin, porcine-PF injection 300 Units 15:30:00 2023-02-06 15:29:00 Yes 300U [facility] acetaminophen-codeine (TYLENOL/CODEINE #3) 300-30 mg per tab let 2020-05-04 00:00:00 Yes Malignant neoplasm of right breast, stag e 3 1{tbl} Take 1 tablet by mouth every 6 hours as needed for Pain. [facility] benzonatate (TESSALON PERLES) 100 mg capsule 2020-05-04 00:0 0:00 Yes Cough 100mg Take 1 capsule by mouth 2 times daily as needed for Cough. [facility] gabapentin (NEURONTIN) 300 mg capsule 2020-05-04 00:00:00 Yes Malignant neoplasm of right breast, stage 3 300mg Take 1 capsule by mouth 3 times daily. [facility] talazoparib 0.25 mg cap 2020-05-04 00:00:00 Yes Malignant neoplasm of right breast, stage 3 2{capsule} QD Take 2 capsules by mouth daily Total dose = 0.5 mg. [facility] fluticasone propionate (FLONASE) 50 mcg/actuation nasal spra y 2020-04-11 00:00:00 Yes Environmental allergies 2{spray} QD Use 2 Sprays by each nostril route daily. [facility] albuterol 90 mcg/actuation inhaler 2020-03-18 00:00:00 Yes 2{puff} Inhale 2 Puffs by mouth 4 times daily as needed for Wheezing. [facility] loratadine (CLARITIN) 10 mg tablet 2020-03-18 00:00:00 Yes 10mg QD Take 1 tablet by mouth daily. [facility] losartan (COZAAR) 25 mg tablet 2020-03-18 00:00:00 Yes Non-ischemic cardiomyopathy 12.5mg QD Take 0.5 tablets by mouth daily Needs to follow up (telemedicine) with pcp for more refills. [facility] mometasone (NASONEX) 50 mcg/actuation nasal spray 2020-03-18 00:00:00 2020-04-11 00:00:00 No 2{spray} QD Use 2 Sprays by each nostril route daily. [facility] albuterol (PROVENTIL) 2.5 mg /3 mL (0.083 %) nebulizer solut ion 2020-03-18 00:00:00 2020-03-18 23:59:00 No Environmental allergies 2.5mg Inhale 3 mL by mouth once for 1 dose. [facility] loratadine (CLARITIN) 10 mg tablet 2020-02-19 00:00:00 00:00:00 No Congestion of both ears 10mg QD Take 1 tablet by mouth celestino ly. [facility] benzonatate (TESSALON PERLES) 100 mg capsule 00:00:00 2020-05-04 00:00:00 No Cough 100mg Take 1 capsule by mouth 2 times daily as needed for Cough. [facility] acetaminophen-codeine (TYLENOL/CODEINE #3) 300-30 mg per tab let 2020-02-17 00:00:00 2020-05-04 00:00:00 No Malignant neoplasm of right breast, stage 3 1{tbl} Take 1 tablet by mouth every 6 hours as needed for Mily n. [facility] losartan (COZAAR) 25 mg tablet 2020-02-15 00:00:00 2020-02-19 1 00:00:00 No Non-ischemic cardiomyopathy 12.5mg QD Take 0.5 tab lets by mouth daily Needs to follow up (telemedicine) with pcp for more refills. [facility] talazoparib 0.25 mg cap 2020-01-20 00:00:00 Yes Malignant neoplasm of right breast, stage 3 .75mg Take 0.75 mg by mo uth Take 3 tablets of the 0.25 mg ( a total of 0.75 mg) DAILY. [facility] ronen benzonatate (TESSALON PERLES) 100 mg capsule 00:00:00 2020-02-17 00:00:00 No Cough 100mg Take 1 capsule by mouth 2 times daily as needed for Cough. [facility] loratadine (CLARITIN) 10 mg tablet 2019-11-24 00:00:00 00:00:00 No Congestion of both ears 10mg QD Take 1 tablet by mouth celestino ly. [facility] gabapentin (NEURONTIN) 300 mg capsule 2019-11-11 00:00 :00 2020-05-04 00:00:00 No Malignant neoplasm of right breast, stage 3 300mg Take 1 capsule by mouth 3 times daily. [facility] acetaminophen-codeine (TYLENOL/CODEINE #3) 300-30 mg per tab let 2019-11-11 00:00:00 2020-02-17 00:00:00 No Malignant neoplasm of right breast, stage 3 1{tbl} Take 1 tablet by mouth every 6 hours as needed for Mily n. [facility] gabapentin (NEURONTIN) 300 mg capsule 2019-11-03 00:00 :00 2019-11-11 00:00:00 No Malignant neoplasm of right breast, stage 3 300mg Take 1 capsule by mouth 3 times daily. [facility] benzonatate (TESSALON PERLES) 100 mg capsule 00:00:00 2019-10-17 23:59:00 No Cough 100mg Take 1 capsule by mouth 3 times daily as needed for up to 7 days for Cough. [facility] oseltamivir (TAMIFLU) 75 mg capsule 2019-10-10 00:00:0 0 2019-10-15 23:59:00 No Influenza B 75mg Q.5D Take 1 capsule by mouth 2 times li y for 5 days. [facility] heparin sodium,porcine/PF (HEPARIN, PORC INE, PF,) 1,000 unit/mL Soln IV (Home IV) 2019-10-10 00:00:00 2019-10-10 00:00:00 No Malignant neoplasm of right breast, stage 3 300U 0.3 mL by INTRA-CATHETER route every 28 da ys. [facility] heparin, porcine-PF injection 300 Units 10:00:00 2019-10-10 11:18:26 No Malignant neoplasm of right breast, stage 3 300U [facility] Miscellaneous Medical Supply Mis 2019-09-09 00:00:00 2019 00:00:00 No Malignant neoplasm of right breast, stage 3 by Misc.(Non-Drug; Combo Route) route PERMANENT PARKING DISABILITY. [facility] [employer] [facility] 2019-08-24 00:00:00 Yes Malignant neoplasm of right breast, stage 3 by Mis c.(Non-Drug; Combo Route) route DISABILITY PARKING 2 PARKING PLACARDS. [facility] acetaminophen-codeine (TYLENOL/CODEINE #3) 300-30 mg per tab let 2019-08-24 00:00:00 2019-10-10 00:00:00 No Malignant neoplasm of right breast, stage 3 1{tbl} Take 1 tablet by mouth every 6 hours as needed for Mily n. [facility] gabapentin (NEURONTIN) 300 mg capsule 2019-07-31 00:00 :00 2019-11-03 00:00:00 No Malignant neoplasm of right breast, stage 3 300mg Take 1 capsule by mouth 3 times daily. [facility] benzonatate (TESSALON) 100 mg capsule 2019-07-22 00:00 :00 2019-08-10 23:59:00 No Pneumonia 100mg Take 1 capsule by mouth 3 times daily for 10 days For cough. [facility] benzonatate (TESSALON) 100 mg capsule 2019-07-10 00:00 :00 2019-07-22 00:00:00 No Pneumonia 100mg Take 1 capsule by mouth 3 times daily for 7 days For cough. [facility] doxycycline monohydrate (MONODOX) 100 mg capsule 2019-07-10 00:00:00 2019-07-12 23:59:00 No Pneumonia 100mg Take 1 capsule by mouth every 12 hours for 2 days. [facility] mometasone (NASONEX) 50 mcg/actuation nasal spray 2019-06-15 00:00:00 2020-03-18 00:00:00 No Congestion of both ears 2{spray} QD Use 2 Sprays by each nostril route daily. [facility] loratadine (CLARITIN) 10 mg tablet 2019-06-15 00:00:00 00:00:00 No Congestion of both ears 10mg QD Take 1 tablet by mouth celestino ly. [facility] ibuprofen (MOTRIN) 600 mg tablet 2019-06-15 00:00:2019-09 00:00:00 No Dental infection 600mg Take 1 tablet by mary th every 8 hours as needed for Pain or Fever > 100.5. [facility] chlorhexidine (PERIDEX) 0.12 % mouth wash 2018-08 00:00:00 2019-07-01 23:59:00 No Dental infection Swish wi th 1/2 oz of solution in mouth for 30 seconds and spit. Use twice daily.. [facility] guaiFENesin SR (MUCINEX) 600 mg extended release tablet 2019-06-10 00:00:00 2019-10-10 00:00:00 No Malignant neoplasm of right breast, st age 3 600mg Q.5D Take 1 tablet by mouth 2 times daily. [facility] acetaminophen-codeine (TYLENOL/CODEINE #3) 300-30 mg per tab let 2019-06-10 00:00:00 2019-08-24 00:00:00 No Malignant neoplasm of right breast, stage 3 1{tbl} Take 1 tablet by mouth every 6 hours as needed for Mily n. [facility] furosemide (LASIX) 40 mg tablet 2019-05-19 00:00:00 00:00:00 No Chemotherapy induced cardiomyopathy 40mg Q.5D Take 1 tablet by mouth 2 times daily. [facility] gabapentin (NEURONTIN) 300 mg capsule 2019-04-29 00:00 :00 2019-07-31 00:00:00 No Malignant neoplasm of right breast, stage 3 300mg Take 1 capsule by mouth 3 times daily. [facility] talazoparib 0.25 mg cap 2019-04-01 00:00:00 Yes Malignant neoplasm of right breast, stage 3 .75mg Take 0.75 mg by mo uth Take 3 tablet of the 0.25 mg ( a total of 0.75 mg) DAILY. [facility] traMADol (ULTRAM) 50 mg tablet 2019-03-04 00:00:00 2019-09-20 00:00:00 No Fall, initial encounter 50mg Take 1 tablet by mouth every 6 hours as needed for up to 30 doses for Pain. [facility] losartan (COZAAR) 25 mg tablet 2018-12-10 00:00:00 2020-01-19 9 00:00:00 No Non-ischemic cardiomyopathy 12.5mg QD Take 0.5 tablets by mouth li rowe [facility] promethazine (PHENERGAN) 25 mg tablet 2018-11-14 00:00:00 Yes Fall, initial encounter 25mg Take 1 tablet by mary th every 6 hours as needed for Nausea or Vomiting. [facility] spironolactone (ALDACTONE) 25 mg tablet 2018-11-14 00:00:00 Yes Non- ischemic cardiomyopathy 12.5mg QD Take 1/2 (half) tablet by mouth da darrius. [facility] metoprolol succinate (TOPROL XL) 25 mg extended release tabl et 2018-11-14 00:00:00 Yes Diarrhea, unspecified type 12.5mg QD Take 1/2 tablet by mouth daily. [facility] albuterol 90 mcg/actuation inhaler 2018-11-14 00:00:00 202 00:00:00 No Acute URI 2{puff} Inhale 2 Puffs b y mouth 4 times daily as needed for Wheezing. [facility] Immunizations Ordered Immunization Name Filled Immunization Name Date Status Comments Source Tdap (Tetanus Toxoid, Reduced Diphtheria Toxoid And Acellular Pertussis, Absorbed) 2017-11-08 00:00:00 Completed [facility] Influenza Vaccine, Seasonal, Injectable 2017-11-07 00:00:0 0 Completed [facility] Vital Signs Vital Name Observation Time Observation Value Comments Source Systolic blood pressure 2020-05-11 00:36:00 128 mm[Hg] [facility] Diastolic blood pressure 2020-05-11 00:36:00 90 mm[Hg] [facility] Heart rate 2020-05-11 00:36:00 90 /min [facility] Body temperature 2020-05-11 00:36:00 36.61 Loan [facility] Respiratory rate 2020-05-11 00:36:00 20 /min [facility] Oxygen saturation in Arterial blood by Pulse oximetry 05-11 00:36:00 97 /min [facility] Body height 2020-05-04 13:52:00 165.1 cm [facility] Body weight 2020-05-04 13:52:00 101.424 kg [facility] BMI 2020-05-04 13:52:00 37.21 kg/m2 [facility] Weight 2020-04-14 23:26:00 227 [lb_av] [facility] BMI (Body Mass Index) 2020-04-14 23:26:00 37.8 kg/m2 [facility] Procedures Procedure Date / Time Performed Performing Clinician Augustin middleton CBC/DIFF 2020-05-27 12:52:00 Yesenia [facility] COMPREHENSIVE METABOLIC PANEL 2020-05-27 12:52:00 Juana Moody [facility] CBC 2020-05-27 12:52:00 Yesenia Moody [facility] DUPLEX DOPPLER LOWER EXTREMITY VENOUS, BILATERAL 2020-05-20 14:53:53 Yesenia Moody [facility] TUMORIMAGE PET/CT SKUL-T 2020-05-20 14:41:19 Yesenia Moody [facility] GLUCOSE POC 2020-05-20 12:50:00 Unknown, Provider Alok garth [facility] CT CHEST PE PROTOCOL 2020-05-10 22:03:11 An[facility], [facility] XRAY CHEST 2 VIEWS 2020-05-10 21:43:06 [facility], [facility] BASIC METABOLIC PANEL 2020-05-10 20:21:00 [facility], [facility] 2020-05-10 20:21:00 [facility] CBC 2020-05-10 20:21:00 [facility] TROPONIN I POC 2020-05-10 19:35:00 Unknown, Provider Alok Vyas [facility] E[facility] EKG PROC 12 LEAD EKG; TRACING ONLY 2020-05-10 19:14:49 Tayler Cordero [facility] CBC/DIFF 2020-05-04 15:53:00 Yesenia Moody [facility] COMPREHENSIVE METABOLIC PANEL 2020-05-04 15:53:00 Juana Moody [facility] CBC 2020-05-04 15:53:00 Yesenia Moody [facility] CBC/DIFF 2020-02-17 16:11:00 Wild Hurley [facility] COMPREHENSIVE METABOLIC PANEL 2020-02-17 16:11:00 Wild Hurley [facility] CBC 2020-02-17 16:11:00 [facility] URINALYSIS 2020-01-14 16:05:00 [facility] 2020-01-14 16:05:[address] [facility] h URINE CULTURE 2020-01-14 16:05:[address] [facility] h TUMORIMAGE PET/CT SKUL-T 2019-12-31 11:55:00 Hiren Cox [facility] GLUCOSE POC 2019-12-31 09:37:00 Krystal Cox [facility] CBC/DIFF 2019-11-11 10:00:[address] [facility] h COMPREHENSIVE METABOLIC PANEL 2019-11-11 10:00:00 Wild Hurley [facility] CBC 2019-11-11 10:00:00 Wild Hurley [facility] INFLUENZA DNA/RNA AMP PROBE, FLURSV 2019-10-10 10:15:00 Milly Dean [facility] CT CHEST PE PROTOCOL 2019-10-10 04:28:42 Jermaine Lui [facility] ECHG EKG PROC 12 LEAD EKG; TRACING ONLY 2019-10-10 02:12:30 Jermaine Lui [facility] D-DIMER 2019-10-10 02:05:00 Jermaine Lui [facility] TROPONIN I 2019-10-10 02:05:00 Jermaine Lui [facility] XRAY CHEST 2 VIEWS 2019-10-09 21:10:30 Obdulia García [facility] CREATININE POC 2019-10-09 19:18:00 Unknown, Provider Alok Vyas [facility] BMP POC 2019-10-09 19:15:00 Unknown, Provider Alok [facility] TROPONIN I POC 2019-10-09 19:06:00 Unknown, Provider Alok [facility] CBC/DIFF 2019-10-09 19:00:00 Obdulia García [facility] HIV AG/AB COMBO ROUTINE SCREENING 2019-10-09 19:00:00 Obdulia García [facility] CBC 2019-10-09 19:00:00 Obdulia García [facility] ECHG EKG PROC 12 LEAD EKG; TRACING ONLY 2019-10-09 18:57:00 Obdulia Guardado [facility] CBC/DIFF 2019-09-21 16:07:00 Wild Hurley [facility] CBC 2019-09-21 16:07:00 Wild Hurley [facility] COMPREHENSIVE METABOLIC PANEL 2019-09-21 14:34:00 Wild Hurley [facility] TUMORIMAGE PET/CT SKUL-T 2019-09-09 11:30:00 Radha Wilkerson [facility] GLUCOSE POC 2019-09-09 09:41:00 Yvonne Stout [facility] CBC/DIFF 2019-07-22 12:17:00 Radha Wilkerson [facility] COMPREHENSIVE METABOLIC PANEL 2019-07-22 12:17:00 Glen Wilkerson ra [facility] CBC 2019-07-22 12:17:00 Radha Wilkerson CBC/DIFF 2019-07-10 03:36:00 Nick Malcom [facility] BASIC METABOLIC PANEL 2019-07-10 03:36:00 Malcom Romero [facility] CBC 2019-07-10 03:36:00 Malcom Romero [facility] CBC/DIFF 2019-07-09 03:47:00 Nick Malcom B [facility] BASIC METABOLIC PANEL 2019-07-09 03:47:[address] [facility] CBC 2019-07-09 03:47:00 Nick Malcom B [facility] ECHG EKG PROC 12 LEAD EKG; TRACING ONLY 2019-07-08 09:39:24 Nick Malcom B [facility] CBC/DIFF 2019-07-08 03:29:00 Nick Malcom B [facility] BASIC METABOLIC PANEL 2019-07-08 03:29:[address] [facility] CBC 2019-07-08 03:29:00 Nick Malcom B [facility] ECHG NON-INVASIVE PROC ECHOCARDIOGRAM 2-D W/O CONTRAST (PROSOLVE) 2019-07-07 14:12:00 Walt De León [facility] BLOOD CULTURE 2019-07-07 11:25:00 Malcom Romero [facility] BLOOD CULTURE 2019-07-07 10:33:00 Malcom Romero [facility] CBC (WITHOUT DIFFERENTIAL) 2019-07-07 03:46:00 Walt De León [facility] BASIC METABOLIC PANEL 2019-07-07 03:46:00 Walt De León [facility] INFUSION PUMP 2019-07-06 07:44:40 Brigido Khan [facility] VBG POC 2019-07-06 06:52:00 Brigido Khan [facility] VBG POC 2019-07-06 04:51:00 Guillermo Mansfield [facility] TROPONIN I POC 2019-07-06 03:29:00 Guillermo Mansfield a lt ECHG EKG PROC 12 LEAD EKG; TRACING ONLY 2019-07-06 03:17:33 Julia Valentin [facility] TROPONIN I POC 2019-07-06 03:08:00 Guillermo Mansfield [facility] BLOOD CULTURE 2019-07-06 02:52:00 JosiahJocelin [facility] GRAM-POS BLOOD CULTURE 2019-07-06 02:52:[address] [facility] VBG POC 2019-07-06 02:52:00 Guillermo Mansfield [facility] TROPONIN I POC 2019-07-06 00:58:00 Guillermo Mansfield [facility] ECHG EKG PROC 12 LEAD EKG; TRACING ONLY 2019-07-06 00:47:04 Julia Valentin [facility] TROPONIN I POC 2019-07-06 00:36:00 Guillermo Mansfield [facility] CT CHEST PE PROTOCOL 2019-07-06 00:34:[address] [facility] URINALYSIS 2019-07-05 23:05:00 Julai Maguire alth URINALYSIS 2019-07-05 23:05:00 Julia Maguire [facility]th XRAY CHEST 2 VIEWS 2019-07-05 23:02:07 Julia Maguire [facility] BMP POC 2019-07-05 21:20:00 Unknown, Provider Alok [facility] TROPONIN I POC 2019-07-05 21:18:00 Unknown, Provider Alok [facility] CBC/DIFF 2019-07-05 21:15:00 Tayler Zhang alth CBC 2019-07-05 21:15:00 Tayler Zhang [facility] alth ECHG EKG PROC 12 LEAD EKG; TRACING ONLY 2019-07-05 21:09:21 Lilly fisher Tayler Holloway [facility] Planned Activity Planned Date Details Comments Source Future Scheduled Test 2022-09-27 00:00:00 Screening for michelle gnant neoplasm of cervix (procedure) [code = [id number]] [facility] Scheduled Test 2020-05-19 00:00:00 IMM Influenza Seas onal May to October (>/= 19 yrs) [code = IMM Influenza Seasonal May to October (>/= 19 yrs)] [facility] Scheduled Test 2007-12-09 00:00:00 Screening for michelle gnant neoplasm of colon (procedure) [code = 307938477] [facility] Scheduled Test 1987-12-09 00:00:00 Screening for michelle gnant neoplasm of cervix (procedure) [code = 637127127] [facility] Patient referral [code = 9847671 ] [facility] Goal Patient referral [code = 9171515 ] [facility] Instructions Insect Bites and Stings [facility] Instructions Lymphedema [facility] Instructions Contusion (DC) [facility] Instructions Minor Head Injury (DC) [facility] Instructions Head Injury Observation (DC) [facility] Encounters Start Date/Time End Date/Time Encounter Type [facility] Type [facility] Care Department Encounter ID Source 2019-07-10 14:05:52 Inpatient [facility] [id number] [facility] 2019-07-10 08:00:38 Inpatient [facility] [id number] [facility] 2019-07-09 00:00:00 Inpatient [facility] [id number] [facility] 2018-09-15 10:40:08 Inpatient [facility] [id number] [facility] 2018-09-15 00:00:00 Inpatient [facility] [id number] [facility] 2018-09-15 00:00:00 Inpatient [facility] [id number] [facility] 2018-09-12 12:20:47 Inpatient [facility] [id number] [facility] 2018-09-12 05:15:07 Inpatient [facility] [id number] [facility] 2020-07-26 00:00:00 2020-07-26 00:00:00 Outpatient [facility] [id number] [facility] 2020-05-02 00:00:00 2020-05-02 00:00:00 Outpatient [facility] [id number] [facility] 2020-04-29 00:00:00 2020-04-29 00:00:00 Outpatient ALIA ROSARIO [facility] [id number] [facility] 2020-04-14 23:36:00 2020-04-15 00:00:00 Departed Emergency Room [facility] [id number] [facility] 2020-04-13 00:00:00 2020-04-13 00:00:00 Outpatient WILD HURLEY [facility] [id number] [facility] 2020-04-13 00:00:00 2020-04-13 00:00:00 Outpatient WILD HURLEY [facility] [id number] [facility] 2020-03-18 09:36:17 2020-03-18 10:27:38 Outpatient ELIZABETH PLAZA [facility] [id number] [facility] 2020-03-16 06:46:52 2020-03-16 17:32:18 Outpatient WILD HURLEY [facility] [id number] [facility] 2020-03-16 00:00:00 2020-03-16 00:00:00 Outpatient [facility] [id number] [facility] 2020-02-26 00:00:00 2020-02-26 00:00:00 Outpatient [facility] [id number] [facility] 2020-02-17 16:08:38 2020-02-17 16:08:38 Outpatient [facility] [id number] [facility] 2020-02-17 14:42:54 2020-02-17 14:42:54 Outpatient [facility] [id number] [facility] 2020-02-10 00:00:00 2020-02-10 00:00:00 Outpatient [facility] [id number] [facility] 2020-02-10 00:00:00 2020-02-10 00:00:00 Outpatient [facility] [id number] [facility] 2020-01-14 15:24:35 2020-01-14 15:24:35 Outpatient [facility] [id number] [facility] 2020-01-14 00:00:00 2020-01-14 00:00:00 Outpatient [facility] [id number] [facility] 2020-01-06 06:40:41 2020-01-06 06:40:41 Outpatient [facility] [id number] [facility] 2020-01-06 00:00:00 2020-01-06 00:00:00 Outpatient [facility] [id number] [facility] 2020-01-05 00:00:00 2020-01-05 00:00:00 Outpatient [facility] [id number] [facility] 2020-01-04 00:00:00 2020-01-04 00:00:00 Outpatient [facility] [id number] [facility] 2019-12-31 09:13:21 2019-12-31 09:13:21 Outpatient [facility] [id number] [facility] 2019-11-11 10:24:40 2019-11-11 10:24:40 Outpatient [facility] [id number] [facility] 2019-11-11 10:00:05 2019-11-11 10:00:05 Outpatient [facility] [id number] [facility] 2019-11-09 00:00:00 2019-11-09 00:00:00 Outpatient [facility] [id number] [facility] 2019-10-10 04:06:28 2019-10-10 04:06:28 Emergency [facility] [id number] [facility] 2019-10-09 23:36:39 2019-10-09 23:36:39 Outpatient [facility] [id number] [facility] 2019-10-09 20:59:16 2019-10-09 20:59:16 Emergency [facility] [id number] [facility] 2019-09-21 14:23:06 2019-09-21 14:23:06 Outpatient [facility] [id number] [facility] 2019-09-16 15:11:31 2019-09-16 15:11:31 Outpatient [facility] [id number] [facility] 2019-09-16 00:00:00 2019-09-16 00:00:00 Outpatient [facility] [id number] [facility] 2019-09-09 09:33:05 2019-09-09 09:33:05 Outpatient [facility] [id number] [facility] 2019-09-09 09:25:16 2019-09-09 09:25:16 Outpatient [facility] [id number] [facility] 2019-09-02 00:00:00 2019-09-02 00:00:00 Outpatient [facility] [id number] [facility] 2019-07-27 13:02:51 2019-07-27 13:02:51 Outpatient [facility] [id number] [facility] 2019-07-22 12:32:33 2019-07-22 12:32:33 Outpatient [facility] [id number] [facility] 2019-07-22 12:16:26 2019-07-22 12:16:26 Outpatient [facility] [id number] [facility] 2019-07-22 11:58:35 2019-07-22 11:58:35 Outpatient [facility] [id number] [facility] 2019-07-20 00:00:00 2019-07-20 00:00:00 Outpatient [facility] [id number] [facility] 2019-07-07 14:36:25 2019-07-07 14:36:25 Outpatient [facility] [id number] [facility] 2019-07-05 23:45:01 2019-07-05 23:45:01 Emergency [facility] [id number] [facility] 2019-07-05 22:40:26 2019-07-05 22:40:26 Emergency [facility] [id number] [facility] 2019-07-05 21:09:19 2019-07-05 21:09:19 Inpatient [facility] [id number] [facility] 2019-06-23 00:00:00 2019-06-23 00:00:00 Outpatient [facility] [id number] [facility] 2019-06-15 16:09:09 2019-06-15 16:09:09 Outpatient [facility] [id number] [facility] 2019-06-10 12:59:14 2019-06-10 12:59:14 Outpatient [facility] [id number] [facility] 2019-06-10 12:13:15 2019-06-10 12:13:15 Outpatient [facility] [id number] [facility] 2019-06-10 12:12:25 2019-06-10 12:12:25 Outpatient [facility] [id number] [facility] 2019-06-10 00:00:00 2019-06-10 00:00:00 Outpatient [facility] [id number] [facility] 2019-06-04 00:00:00 2019-06-04 00:00:00 Outpatient [facility] [id number] [facility] 2019-05-19 09:48:59 2019-05-19 09:48:59 Outpatient [facility] [id number] [facility] 2019-04-29 12:43:51 2019-04-29 12:43:51 Outpatient [facility] [id number] [facility] 2019-04-29 11:49:38 2019-04-29 11:49:38 Outpatient [facility] [id number] [facility] 2019-04-29 00:00:00 2019-04-29 00:00:00 Outpatient [facility] [id number] [facility] 2019-04-29 00:00:00 2019-04-29 00:00:00 Outpatient [facility] [id number] [facility] 2019-04-22 10:54:37 2019-04-22 10:54:37 Outpatient [facility] [id number] [facility] 2019-04-22 07:23:46 2019-04-22 07:23:46 Outpatient [facility] [id number] [facility] 2019-04-14 00:00:00 2019-04-14 00:00:00 Outpatient [facility] [id number] [facility] 2019-04-13 14:35:33 2019-04-13 14:35:33 Outpatient [facility] [id number] [facility] 2019-04-01 14:33:57 2019-04-01 14:33:57 Outpatient [facility] [id number] [facility] 2019-04-01 13:32:15 2019-04-01 13:32:15 Outpatient [facility] [id number] [facility] 2019-03-18 13:16:40 2019-03-18 13:16:40 Outpatient [facility] [id number] [facility] 2019-03-10 00:00:00 2019-03-10 00:00:00 Outpatient [facility] [id number] [facility] 2019-03-05 00:00:00 2019-03-05 00:00:00 Outpatient [facility] [id number] [facility] 2019-03-04 15:23:42 2019-03-04 15:23:42 Outpatient [facility] [id number] [facility] 2019-03-04 14:26:05 2019-03-04 14:26:05 Outpatient [facility] [id number] [facility] 2019-03-04 00:00:00 2019-03-04 00:00:00 Outpatient [facility] [id number] [facility] 2019-02-27 11:38:00 2019-02-27 11:38:00 Outpatient [facility] [id number] [facility] 2019-02-04 15:12:16 2019-02-04 15:12:16 Outpatient [facility] [id number] [facility] 2019-02-04 14:42:19 2019-02-04 14:42:19 Outpatient [facility] [id number] [facility] 2019-01-30 00:00:00 2019-01-30 00:00:00 Outpatient [facility] [id number] [facility] 2019-01-23 00:00:00 2019-01-23 00:00:00 Outpatient [facility] [id number] [facility] 2019-01-22 07:10:56 2019-01-22 07:10:56 Outpatient [facility] [id number] [facility] 2019-01-20 08:45:56 2019-01-20 08:45:56 Outpatient [facility] [id number] [facility] 2019-01-07 15:10:34 2019-01-07 15:10:34 Outpatient [facility] [id number] [facility] 2019-01-07 14:20:02 2019-01-07 14:20:02 Outpatient [facility] [id number] [facility] 2018-12-30 00:00:00 2018-12-30 00:00:00 Outpatient [facility] [id number] [facility] 2018-12-18 00:00:00 2018-12-18 00:00:00 Outpatient [facility] [id number] [facility] 2018-12-10 13:10:06 2018-12-10 13:10:06 Outpatient [facility] [id number] [facility] 2018-12-10 12:35:08 2018-12-10 12:35:08 Outpatient [facility] [id number] [facility] 2018-12-01 14:20:39 2018-12-01 14:20:39 Outpatient [facility] [id number] [facility] 2018-11-13 05:24:00 2018-11-13 05:24:00 Emergency [facility] [id number] [facility] 2018-11-13 04:35:17 2018-11-13 04:35:17 Emergency [facility] [id number] [facility] 2018-11-13 04:27:48 2018-11-13 04:27:48 Emergency [facility] [id number] [facility] 2018-11-13 04:02:06 2018-11-13 04:02:06 Outpatient [facility] [id number] [facility] 2018-11-13 00:00:00 2018-11-13 00:00:00 Outpatient [facility] [id number] [facility] 2018-11-12 15:35:11 2018-11-12 15:35:11 Outpatient [facility] [id number] [facility] 2018-11-06 00:00:00 2018-11-06 00:00:00 Outpatient [facility] [id number] [facility] 2018-11-05 00:00:00 2018-11-05 00:00:00 Outpatient [facility] [id number] [facility] 2018-11-03 00:00:00 2018-11-03 00:00:00 Outpatient [facility] [id number] [facility] 2018-10-30 12:16:53 2018-10-30 12:16:53 Outpatient [facility] [id number] [facility] 2018-10-30 10:43:11 2018-10-30 10:43:11 Outpatient [facility] [id number] [facility] 2018-10-30 08:40:52 2018-10-30 08:40:52 Outpatient [facility] [id number] [facility] 2018-10-30 00:00:00 2018-10-30 00:00:00 Outpatient [facility] [id number] [facility] 2018-10-30 00:00:00 2018-10-30 00:00:00 Outpatient [facility] [id number] [facility] 2018-10-29 00:00:00 2018-10-29 00:00:00 Outpatient [facility] [id number] [facility] 2018-10-15 00:00:00 2018-10-15 00:00:00 Outpatient [facility] [id number] [facility] 2018-10-08 13:45:15 2018-10-08 13:45:15 Outpatient [facility] [id number] [facility] 2018-10-07 13:28:51 2018-10-07 13:28:51 Outpatient [facility] [id number] [facility] 2018-10-01 00:00:00 2018-10-01 00:00:00 Outpatient [facility] [id number] [facility] 2018-09-26 16:07:08 2018-09-26 16:07:08 Outpatient [facility] [id number] [facility] 2018-09-25 06:24:58 2018-09-25 06:24:58 Emergency [facility] MED [id number] [facility] 2018-09-22 08:51:30 2018-09-22 08:51:30 Outpatient [facility] [id number] [facility] 2018-09-17 14:00:10 2018-09-17 14:00:10 Outpatient [facility] [id number] [facility] 2018-09-17 13:30:55 2018-09-17 13:30:55 Outpatient [facility] [id number] [facility] 2018-09-12 00:29:09 2018-09-12 00:29:09 Emergency [facility] [id number] [facility] 2018-09-12 00:16:58 2018-09-12 00:16:58 Emergency [facility] [id number] [facility] 2018-09-11 23:54:36 2018-09-11 23:54:36 Inpatient [facility] [id number] [facility] 2018-09-11 22:39:46 2018-09-11 22:39:46 Emergency [facility] [id number] [facility] 2018-09-03 14:15:50 2018-09-03 14:15:50 Outpatient [facility] [id number] [facility] 2018-08-27 00:00:00 2018-08-27 00:00:00 Outpatient [facility] [id number] [facility] 2018-08-13 00:00:00 2018-08-13 00:00:00 Outpatient [facility] [id number] [facility] 2018-07-25 14:08:21 2018-07-25 14:08:21 Outpatient [facility] [id number] [facility] 2018-07-21 00:00:00 2018-07-21 00:00:00 Outpatient [facility] [id number] [facility] 2018-07-16 13:29:01 2018-07-16 13:29:01 Outpatient [facility] [id number] [facility] 2018-07-16 11:52:31 2018-07-16 11:52:31 Outpatient [facility] [id number] [facility] 2018-06-25 00:00:00 2018-06-25 00:00:00 Outpatient [facility] [id number] [facility] 2018-06-18 00:00:00 2018-06-18 00:00:00 Outpatient [facility] [id number] [facility] 2018-06-02 19:17:26 2018-06-02 19:17:26 Outpatient [facility] [id number] [facility] 2018-05-21 10:57:38 2018-05-21 10:57:38 Outpatient [facility] [id number] [facility] 2018-05-19 00:00:00 2018-05-19 00:00:00 Outpatient [facility] [id number] [facility] 2018-05-01 00:00:00 2018-05-01 00:00:00 Outpatient [facility] [id number] [facility] 2018-04-18 00:00:00 2018-04-18 00:00:00 Outpatient [facility] [id number] [facility] 2018-04-11 00:00:00 2018-04-11 00:00:00 Outpatient [facility] [id number] [facility] 2018-04-09 07:38:46 2018-04-09 07:38:46 Outpatient [facility] [id number] [facility] 2018-04-08 08:46:58 2018-04-08 08:46:58 Outpatient [facility] [id number] [facility] 2018-04-08 08:46:47 2018-04-08 08:46:47 Outpatient [facility] [id number] [facility] 2018-04-08 00:00:00 2018-04-08 00:00:00 Outpatient [facility] [id number] [facility] 2018-04-04 00:00:00 2018-04-04 00:00:00 Outpatient [facility] [id number] [facility] 2018-04-01 12:52:05 2018-04-01 12:52:05 Outpatient [facility] [id number] [facility] 2018-04-01 11:42:32 2018-04-01 11:42:32 Outpatient [facility] [id number] [facility] 2018-04-01 00:00:00 2018-04-01 00:00:00 Outpatient [facility] [id number] [facility] 2018-03-31 11:15:52 2018-03-31 11:15:52 Outpatient [facility] [id number] [facility] 2018-03-31 10:08:02 2018-03-31 10:08:02 Outpatient [facility] [id number] [facility] 2018-03-26 12:54:40 2018-03-26 12:54:40 Outpatient [facility] [id number] [facility] 2018-03-26 12:27:21 2018-03-26 12:27:21 Outpatient [facility] [id number] [facility] 2018-03-24 00:00:00 2018-03-24 00:00:00 Outpatient [facility] [id number] [facility] 2018-03-20 01:20:09 2018-03-20 01:20:09 Emergency [facility] [id number] [facility] 2018-03-20 00:39:01 2018-03-20 00:39:01 Emergency [facility] [id number] [facility] 2018-03-20 00:08:26 2018-03-20 00:08:26 Emergency [facility] [id number] [facility] 2018-03-19 23:53:51 2018-03-19 23:53:51 Emergency [facility] [id number] [facility] 2018-03-19 08:15:41 2018-03-19 08:15:41 Outpatient [facility] [id number] [facility] 2018-03-11 09:04:02 2018-03-11 09:04:02 Outpatient [facility] [id number] [facility] 2018-03-11 08:14:48 2018-03-11 08:14:48 Outpatient [facility] [id number] [facility] 2018-03-03 00:00:00 2018-03-03 00:00:00 Outpatient [facility] [id number] [facility] 2018-02-26 15:05:39 2018-02-26 15:05:39 Outpatient [facility] [id number] [facility] 2018-02-26 14:45:26 2018-02-26 14:45:26 Outpatient [facility] [id number] [facility] 2018-02-12 00:00:00 2018-02-12 00:00:00 Outpatient [facility] [id number] [facility] 2018-02-10 09:12:00 2018-02-10 09:12:00 Outpatient [facility] [id number] [facility] 2018-02-10 00:00:00 2018-02-10 00:00:00 Outpatient [facility] [id number] [facility] 2018-02-06 00:00:00 2018-02-06 00:00:00 Outpatient [facility] [id number] [facility] 2018-02-05 00:00:00 2018-02-05 00:00:00 Outpatient [facility] [id number] [facility] 2018-02-05 00:00:00 2018-02-05 00:00:00 Outpatient [facility] [id number] [facility] 2018-01-31 00:00:00 2018-01-31 00:00:00 Outpatient [facility] [id number] [facility] 2018-01-29 12:40:15 2018-01-29 12:40:15 Outpatient [facility] [id number] [facility] 2018-01-29 11:52:45 2018-01-29 11:52:45 Outpatient [facility] [id number] [facility] 2018-01-21 13:55:56 2018-01-21 13:55:56 Outpatient [facility] [id number] [facility] 2018-01-21 00:00:00 2018-01-21 00:00:00 Outpatient [facility] [id number] [facility] 2018-01-20 21:47:56 2018-01-20 21:47:56 Outpatient [facility] [id number] [facility] 2018-01-20 17:56:52 2018-01-20 17:56:52 Emergency [facility] [id number] [facility] 2018-01-20 17:52:20 2018-01-20 17:52:20 Emergency [facility] [id number] [facility] 2018-01-20 17:06:39 2018-01-20 17:06:39 Outpatient [facility] [id number] [facility] 2018-01-20 00:00:00 2018-01-20 00:00:00 Outpatient [facility] [id number] [facility] 2018-01-20 00:00:00 2018-01-20 00:00:00 Outpatient [facility] [id number] [facility] 2018-01-20 00:00:00 2018-01-20 00:00:00 Outpatient [facility] [id number] [facility] 2018-01-20 00:00:00 2018-01-20 00:00:00 Outpatient [facility] [id number] [facility] 2018-01-15 14:02:24 2018-01-15 14:02:24 Outpatient [facility] [id number] [facility] 2018-01-15 09:33:10 2018-01-15 09:33:10 Outpatient [facility] [id number] [facility] 2018-01-15 00:00:00 2018-01-15 00:00:00 Outpatient [facility] [id number] [facility] 2018-01-14 00:00:00 2018-01-14 00:00:00 Outpatient [facility] [id number] [facility] 2018-01-02 12:53:46 2018-01-02 12:53:46 Outpatient [facility] [id number] [facility] 2017-12-30 14:58:10 2017-12-30 14:58:10 Outpatient [facility] [id number] [facility] 2017-12-26 08:22:00 2017-12-26 08:22:00 Outpatient [facility] [id number] [facility] 2017-12-25 10:07:47 2017-12-25 10:07:47 Outpatient [facility] [id number] [facility] 2017-12-25 08:16:00 2017-12-25 08:16:00 Outpatient [facility] [id number] [facility] 2017-12-25 07:56:51 2017-12-25 07:56:51 Outpatient [facility] [id number] [facility] 2017-12-25 00:00:00 2017-12-25 00:00:00 Outpatient [facility] [id number] [facility] [facility]-25 00:00:00 2017-12-25 00:00:00 Outpatient [facility] [id number] [facility] 2017-12-25 00:00:00 2017-12-25 00:00:00 Outpatient [facility] [id number] [facility] 2017-12-24 00:00:00 2017-12-24 00:00:00 Outpatient [facility] [id number] [facility] 2017-12-23 08:34:33 2017-12-23 08:34:33 Outpatient [facility] [id number] [facility] 2017-12-23 08:04:00 2017-12-23 08:04:00 Outpatient [facility] [id number] [facility] 2017-12-20 00:00:00 2017-12-20 00:00:00 Outpatient [facility] [id number] [facility] 2017-12-20 00:00:00 2017-12-20 00:00:00 Outpatient [facility] [id number] [facility] 2017-12-20 00:00:00 2017-12-20 00:00:00 Outpatient [facility] [id number] [facility] 2017-12-19 07:54:00 2017-12-19 07:54:00 Outpatient [facility] [id number] [facility] 2017-12-19 00:00:00 2017-12-19 00:00:00 Outpatient [facility] [id number] [facility] 2017-12-18 08:17:00 2017-12-18 08:17:00 Outpatient [facility] [id number] [facility] 2017-12-17 09:50:46 2017-12-17 09:50:46 Outpatient [facility] [id number] [facility] 2017-12-16 00:00:00 2017-12-16 00:00:00 Outpatient [facility] [id number] [facility] 2017-12-16 00:00:00 2017-12-16 00:00:00 Outpatient [facility] [id number] [facility] 2017-12-13 08:24:00 2017-12-13 08:24:00 Outpatient [facility] [id number] [facility] 2017-12-12 08:13:00 2017-12-12 08:13:00 Outpatient [facility] [id number] [facility] 2017-12-11 08:23:00 2017-12-11 08:23:00 Outpatient [facility] [id number] [facility] 2017-12-10 08:29:00 2017-12-10 08:29:00 Outpatient [facility] [id number] [facility] 2017-12-09 13:40:27 2017-12-09 13:40:27 Outpatient [facility] [id number] [facility] 2017-12-09 08:57:00 2017-12-09 08:57:00 Outpatient [facility] [id number] [facility] 2017-12-09 08:23:00 2017-12-09 08:23:00 Outpatient [facility] [id number] [facility] 2017-12-06 08:11:00 2017-12-06 08:11:00 Outpatient [facility] [id number] [facility] 2017-12-05 00:00:00 2017-12-05 00:00:00 Outpatient [facility] [id number] [facility] 2017-12-04 09:22:00 2017-12-04 09:22:00 Outpatient [facility] [id number] [facility] 2017-12-03 09:19:00 2017-12-03 09:19:00 Outpatient [facility] [id number] [facility] 2017-12-02 10:22:00 2017-12-02 10:22:00 Outpatient [facility] [id number] [facility] 2017-12-02 09:21:00 2017-12-02 09:21:00 Outpatient [facility] [id number] [facility] 2017-11-29 10:29:00 2017-11-29 10:29:00 Outpatient [facility] [id number] [facility] 2017-11-28 08:16:00 2017-11-28 08:16:00 Outpatient [facility] [id number] [facility] 2017-11-27 08:28:00 2017-11-27 08:28:00 Outpatient [facility] [id number] [facility] 2017-11-26 08:21:00 2017-11-26 08:21:00 Outpatient [facility] [id number] [facility] 2017-11-25 09:57:00 2017-11-25 09:57:00 Outpatient [facility] [id number] [facility] 2017-11-25 08:14:00 2017-11-25 08:14:00 Outpatient [facility] [id number] [facility] 2017-11-22 00:00:00 2017-11-22 00:00:00 Outpatient [facility] [id number] [facility] 2017-11-21 00:00:00 2017-11-21 00:00:00 Outpatient [facility] [id number] [facility] 2017-11-20 00:00:00 2017-11-20 00:00:00 Outpatient [facility] [id number] [facility] 2017-11-19 00:00:00 2017-11-19 00:00:00 Outpatient [facility] [id number] [facility] 2017-11-18 15:19:56 2017-11-18 15:19:56 Outpatient [facility] [id number] [facility] 2017-11-18 13:29:00 2017-11-18 13:29:00 Outpatient [facility] [id number] [facility] 2017-11-18 00:00:00 2017-11-18 00:00:00 Outpatient [facility] [id number] [facility] 2017-11-15 07:52:00 2017-11-15 07:52:00 Outpatient [facility] [id number] [facility] 2017-11-14 08:37:00 2017-11-14 08:37:00 Outpatient [facility] [id number] [facility] 2017-11-13 09:10:00 2017-11-13 09:10:00 Outpatient [facility] [id number] [facility] 2017-11-12 13:07:00 2017-11-12 13:07:00 Outpatient [facility] [id number] [facility] 2017-11-11 09:40:00 2017-11-11 09:40:00 Outpatient [facility] [id number] [facility] 2017-11-11 09:08:00 2017-11-11 09:08:00 Outpatient [facility] [id number] [facility] 2017-11-08 09:00:00 2017-11-08 09:00:00 Outpatient [facility] [id number] [facility] 2017-11-08 00:00:00 2017-11-08 00:00:00 Outpatient [facility] [id number] [facility] 2017-11-07 16:55:00 2017-11-07 16:55:00 Outpatient [facility] [id number] [facility] 2017-11-07 15:15:59 2017-11-07 15:15:59 Outpatient [facility] [id number] [facility] 2017-11-06 15:34:00 2017-11-06 15:34:00 Outpatient [facility] [id number] [facility] 2017-11-05 14:06:00 2017-11-05 14:06:00 Outpatient [facility] [id number] [facility] 2017-10-28 12:47:14 2017-10-28 12:47:14 Outpatient [facility] [id number] [facility] 2017-10-25 14:58:00 2017-10-25 14:58:00 Outpatient [facility] [id number] [facility] 2017-10-23 14:19:31 2017-10-23 14:19:31 Outpatient [facility] [id number] [facility] 2017-10-23 14:16:07 2017-10-23 14:16:07 Outpatient [facility] [id number] [facility] 2017-10-23 12:50:29 2017-10-23 12:50:29 Outpatient [facility] [id number] [facility] 2017-10-17 10:58:00 2017-10-17 10:58:00 Outpatient [facility] [id number] [facility] 2017-10-16 14:00:26 2017-10-16 14:00:26 Outpatient [facility] [id number] [facility] 2017-10-15 14:41:56 2017-10-15 14:41:56 Outpatient [facility] [id number] [facility] 2017-10-09 14:28:23 2017-10-09 14:28:23 Outpatient [facility] [id number] [facility] 2017-10-07 11:46:21 2017-10-07 11:46:21 Outpatient [facility] [id number] [facility] 2017-10-07 10:17:40 2017-10-07 10:17:40 Outpatient [facility] [id number] [facility] 2017-10-02 16:19:02 2017-10-02 16:19:02 Outpatient [facility] [id number] [facility] 2017-09-27 08:23:01 2017-09-27 08:23:01 Outpatient [facility] [id number] [facility] 2017-09-27 07:14:50 2017-09-27 07:14:50 Outpatient [facility] [id number] [facility] 2017-09-25 13:59:29 2017-09-25 13:59:29 Outpatient [facility] [id number] [facility] 2017-09-25 13:01:15 2017-09-25 13:01:15 Outpatient [facility] [id number] [facility] 2017-09-25 11:40:49 2017-09-25 11:40:49 Outpatient [facility] [id number] [facility] 2017-09-18 00:00:00 2017-09-18 00:00:00 Outpatient [facility] [id number] [facility] 2017-09-18 00:00:00 2017-09-18 00:00:00 Outpatient [facility] [id number] [facility] 2017-09-12 10:55:00 2017-09-12 10:55:00 Outpatient [facility] [id number] [facility] 2017-09-12 00:00:00 2017-09-12 00:00:00 Outpatient [facility] [id number] [facility] 2017-09-12 00:00:00 2017-09-12 00:00:00 Outpatient [facility] [id number] [facility] 2017-09-11 00:00:00 2017-09-11 00:00:00 Outpatient [facility] [id number] [facility] 2017-09-05 12:11:23 2017-09-05 12:11:23 Outpatient [facility] [id number] [facility] 2017-09-05 10:25:29 2017-09-05 10:25:29 Outpatient [facility] [id number] [facility] 2017-09-05 00:00:00 2017-09-05 00:00:00 Outpatient [facility] [id number] [facility] 2017-08-30 13:24:17 2017-08-30 13:24:17 Outpatient [facility] [id number] [facility] 2017-08-29 00:00:00 2017-08-29 00:00:00 Outpatient [facility] [id number] [facility] 2017-08-28 14:33:19 2017-08-28 14:33:19 Outpatient [facility] [id number] [facility] 2017-08-28 13:50:30 2017-08-28 13:50:30 Outpatient [facility] [id number] [facility] 2017-08-28 00:00:00 2017-08-28 00:00:00 Outpatient [facility] [id number] [facility] 2017-08-28 00:00:00 2017-08-28 00:00:00 Outpatient [facility] [id number] [facility] 2017-08-28 00:00:00 2017-08-28 00:00:00 Outpatient [facility] [id number] [facility] 2017-08-28 00:00:00 2017-08-28 00:00:00 Outpatient [facility] [id number] [facility] 2017-08-28 00:00:00 2017-08-28 00:00:00 Outpatient [facility] [id number] [facility] 2017-08-28 00:00:00 2017-08-28 00:00:00 Outpatient [facility] [id number] [facility] 2017-08-27 13:02:26 2017-08-27 00:00:00 Inpatient [facility] [id number] [facility] 2017-08-26 00:00:00 2017-08-26 00:00:00 Outpatient [facility] [id number] [facility] 2017-08-24 02:23:59 2017-08-24 02:23:59 Emergency [facility] [id number] [facility] 2017-08-24 02:22:27 2017-08-24 02:22:27 Emergency [facility] [id number] [facility] 2017-08-24 01:56:44 2017-08-24 01:56:44 Inpatient [facility] [id number] [facility] 2017-08-22 12:33:32 2017-08-22 12:33:32 Outpatient [facility] [id number] [facility] 2017-08-22 00:00:00 2017-08-22 00:00:00 Outpatient [facility] [id number] [facility] 2017-08-21 15:58:35 2017-08-21 15:58:35 Outpatient [facility] [id number] [facility] 2017-08-21 13:03:13 2017-08-21 13:03:13 Outpatient [facility] [id number] [facility] 2017-08-21 11:38:00 2017-08-21 11:38:00 Outpatient [facility] [id number] [facility] 2017-08-21 00:00:00 2017-08-21 00:00:00 Outpatient [facility] [id number] [facility] 2017-08-21 00:00:00 2017-08-21 00:00:00 Outpatient [facility] [id number] [facility] 2017-08-20 00:00:00 2017-08-20 00:00:00 Outpatient [facility] [id number] [facility] 2017-08-14 14:59:56 2017-08-14 14:59:56 Outpatient [facility] [id number] [facility] 2017-08-14 14:33:47 2017-08-14 14:33:47 Outpatient [facility] [id number] [facility] 2017-08-13 17:59:00 2017-08-13 17:59:00 Emergency [facility] [id number] [facility] 2017-08-09 00:00:00 2017-08-09 00:00:00 Outpatient [facility] [id number] [facility] 2017-08-08 00:00:00 2017-08-08 00:00:00 Outpatient [facility] [id number] [facility] 2017-08-07 00:00:00 2017-08-07 00:00:00 Outpatient [facility] [id number] [facility] 2017-08-07 00:00:00 2017-08-07 00:00:00 Outpatient [facility] [id number] [facility] 2017-08-06 00:00:00 2017-08-06 00:00:00 Outpatient [facility] [id number] [facility] 2017-08-06 00:00:00 2017-08-06 00:00:00 Outpatient [facility] [id number] [facility] 2017-08-05 15:21:12 2017-08-05 15:21:12 Emergency [facility] [id number] [facility] 2017-08-05 15:02:14 2017-08-05 15:02:14 Emergency [facility] [id number] [facility] 2017-08-05 14:28:11 2017-08-05 14:28:11 Inpatient [facility] MED [id number] [facility] 2017-08-01 00:00:00 2017-08-01 00:00:00 Outpatient [facility] [id number] [facility] 2017-07-31 14:45:55 2017-07-31 14:45:55 Outpatient [facility] [id number] [facility] 2017-07-31 11:25:21 2017-07-31 11:25:21 Outpatient [facility] [id number] [facility] 2017-07-18 11:55:11 2017-07-18 11:55:11 Outpatient [facility] [id number] [facility] 2017-07-18 10:32:47 2017-07-18 10:32:47 Outpatient [facility] [id number] [facility] 2017-07-18 00:00:00 2017-07-18 00:00:00 Outpatient [facility] [id number] [facility] 2017-07-10 12:42:15 2017-07-10 12:42:15 Outpatient [facility] [id number] [facility] 2017-07-10 12:13:20 2017-07-10 12:13:20 Outpatient [facility] [id number] [facility] 2017-07-01 15:40:57 2017-07-01 15:40:57 Outpatient [facility] [id number] [facility] 2017-07-01 11:40:32 2017-07-01 11:40:32 Outpatient [facility] [id number] [facility] 2017-06-28 09:42:12 2017-06-28 09:42:12 Outpatient [facility] [id number] [facility] 2017-06-28 07:52:15 2017-06-28 07:52:15 Outpatient [facility] [id number] [facility] 2017-06-28 00:00:00 2017-06-28 00:00:00 Outpatient [facility] [id number] [facility] 2017-06-27 10:40:35 2017-06-27 10:40:35 Outpatient [facility] [id number] [facility] 2017-06-27 07:57:08 2017-06-27 07:57:08 Outpatient [facility] [id number] [facility] 2017-06-27 00:00:00 2017-06-27 00:00:00 Outpatient [facility] [id number] [facility] 2017-06-26 00:00:00 2017-06-26 00:00:00 Outpatient [facility] [id number] [facility] 2017-06-26 00:00:00 2017-06-26 00:00:00 Outpatient [facility] [id number] [facility] 2017-06-24 12:29:08 2017-06-24 12:29:08 Outpatient [facility] [id number] [facility] 2017-06-23 20:47:21 2017-06-23 20:47:21 Emergency [facility] [id number] [facility] 2017-06-20 00:00:00 2017-06-20 00:00:00 Outpatient [facility] [id number] [facility] 2017-06-19 15:10:12 2017-06-19 15:10:12 Outpatient [facility] [id number] [facility] 2017-06-19 13:10:55 2017-06-19 13:10:55 Outpatient [facility] [id number] [facility] 2017-06-17 10:12:03 2017-06-17 10:12:03 Outpatient [facility] [id number] [facility] 2017-06-12 00:00:00 2017-06-12 00:00:00 Outpatient [facility] [id number] [facility] 2017-06-10 14:02:37 2017-06-10 14:02:37 Outpatient [facility] [id number] [facility] 2017-06-10 10:32:05 2017-06-10 10:32:05 Outpatient [facility] [id number] [facility] 2017-06-10 06:30:40 2017-06-10 06:30:40 Outpatient [facility] [id number] [facility] 2017-06-10 02:12:36 2017-06-10 02:12:36 Emergency [facility] [id number] [facility] 2017-06-10 01:07:16 2017-06-10 01:07:16 Emergency [facility] [id number] [facility] 2017-06-10 00:13:04 2017-06-10 00:13:04 Outpatient [facility] [id number] [facility] 2017-06-06 10:03:18 2017-06-06 10:03:18 Outpatient [facility] [id number] [facility] 2017-06-06 07:48:14 2017-06-06 07:48:14 Outpatient [facility] [id number] [facility] 2017-05-29 14:01:28 2017-05-29 14:01:28 Outpatient [facility] [id number] [facility] 2017-05-29 00:00:00 2017-05-29 00:00:00 Outpatient [facility] [id number] [facility] 2017-05-28 16:00:09 2017-05-28 16:00:09 Outpatient [facility] [id number] [facility] 2017-05-27 09:02:22 2017-05-27 09:02:22 Outpatient [facility] [id number] [facility] 2017-05-24 00:00:00 2017-05-24 00:00:00 Outpatient [facility] [id number] [facility] 2017-05-23 10:59:30 2017-05-23 10:59:30 Outpatient [facility] [id number] [facility] 2017-05-22 12:40:41 2017-05-22 12:40:41 Outpatient [facility] [id number] [facility] 2017-05-22 11:55:09 2017-05-22 11:55:09 Outpatient [facility] [id number] [facility] 2017-05-22 00:00:00 2017-05-22 00:00:00 Outpatient [facility] [id number] [facility] 2017-05-21 00:00:00 2017-05-21 00:00:00 Outpatient [facility] [id number] [facility] 2017-05-17 00:00:00 2017-05-17 00:00:00 Outpatient [facility] [id number] [facility] 2017-05-16 00:00:00 2017-05-16 00:00:00 Outpatient [facility] [id number] [facility] 2017-05-15 18:00:57 2017-05-15 18:00:57 Outpatient [facility] [id number] [facility] 2017-05-15 10:13:03 2017-05-15 10:13:03 Outpatient [facility] [id number] [facility] 2017-05-10 00:00:00 2017-05-10 00:00:00 Outpatient [facility] [id number] [facility] 2017-05-09 00:00:00 2017-05-09 00:00:00 Outpatient [facility] [id number] [facility] 2017-05-08 13:10:16 2017-05-08 13:10:16 Outpatient [facility] [id number] [facility] 2017-05-08 10:23:23 2017-05-08 10:23:23 Outpatient [facility] [id number] [facility] 2017-05-03 00:00:00 2017-05-03 00:00:00 Outpatient [facility] [id number] [facility] 2017-05-02 13:57:46 2017-05-02 13:57:46 Outpatient [facility] [id number] [facility] 2017-05-01 13:45:44 2017-05-01 13:45:44 Outpatient [facility] [id number] [facility] 2017-05-01 11:47:25 2017-05-01 11:47:25 Outpatient [facility] [id number] [facility] 2017-05-01 00:00:00 2017-05-01 00:00:00 Outpatient [facility] [id number] [facility] 2017-04-26 00:00:00 2017-04-26 00:00:00 Outpatient [facility] [id number] [facility] 2017-04-25 13:18:41 2017-04-25 13:18:41 Outpatient [facility] [id number] [facility] 2017-04-25 11:08:01 2017-04-25 11:08:01 Outpatient [facility] [id number] [facility] 2017-04-24 00:00:00 2017-04-24 00:00:00 Outpatient [facility] [id number] [facility] 2017-04-24 00:00:00 2017-04-24 00:00:00 Outpatient [facility] [id number] [facility] 2017-04-24 00:00:00 2017-04-24 00:00:00 Outpatient [facility] [id number] [facility] 2017-04-24 00:00:00 2017-04-24 00:00:00 Outpatient [facility] [id number] [facility] 2017-04-19 11:37:40 2017-04-19 11:37:40 Outpatient [facility] [id number] [facility] 2017-04-19 11:10:58 2017-04-19 11:10:58 Outpatient [facility] [id number] [facility] 2017-04-17 00:00:00 2017-04-17 00:00:00 Outpatient [facility] [id number] [facility] 2017-04-17 00:00:00 2017-04-17 00:00:00 Outpatient [facility] [id number] [facility] 2017-04-11 11:46:10 2017-04-11 11:46:10 Outpatient [facility] [id number] [facility] 2017-04-11 09:46:35 2017-04-11 09:46:35 Outpatient [facility] [id number] [facility] 2017-04-10 00:00:00 2017-04-10 00:00:00 Outpatient [facility] [id number] [facility] 2017-04-10 00:00:00 2017-04-10 00:00:00 Outpatient [facility] [id number] [facility] 2017-04-09 15:23:51 2017-04-09 15:23:51 Outpatient [facility] [id number] [facility] 2017-04-08 00:00:00 2017-04-08 00:00:00 Outpatient [facility] [id number] [facility] 2017-04-04 14:17:20 2017-04-04 14:17:20 Outpatient [facility] [id number] [facility] 2017-04-03 10:14:26 2017-04-03 10:14:26 Outpatient [facility] [id number] [facility] 2017-03-27 13:40:36 2017-03-27 13:40:36 Outpatient [facility] [id number] [facility] 2017-03-27 11:40:55 2017-03-27 11:40:55 Outpatient [facility] [id number] [facility] 2017-03-27 00:00:00 2017-03-27 00:00:00 Outpatient [facility] [id number] [facility] 2017-03-21 11:58:15 2017-03-21 11:58:15 Outpatient [facility] [id number] [facility] 2017-03-20 13:44:16 2017-03-20 13:44:16 Outpatient [facility] [id number] [facility] 2017-03-20 13:29:24 2017-03-20 13:29:24 Outpatient [facility] [id number] [facility] 2017-03-20 00:00:00 2017-03-20 00:00:00 Outpatient [facility] [id number] [facility] 2017-03-14 13:10:27 2017-03-14 13:10:27 Outpatient [facility] [id number] [facility] 2017-03-14 10:59:06 2017-03-14 10:59:06 Outpatient [facility] [id number] [facility] 2017-03-06 12:31:26 2017-03-06 12:31:26 Outpatient [facility] [id number] [facility] 2017-03-06 11:00:44 2017-03-06 11:00:44 Outpatient [facility] [id number] [facility] 2017-03-06 00:00:00 2017-03-06 00:00:00 Outpatient [facility] [id number] [facility] 2017-03-06 00:00:00 2017-03-06 00:00:00 Outpatient [facility] [id number] [facility] 2017-03-04 12:11:58 2017-03-04 12:11:58 Outpatient [facility] [id number] [facility] 2017-03-04 00:00:00 2017-03-04 00:00:00 Outpatient [facility] [id number] [facility] 2017-03-04 00:00:00 2017-03-04 00:00:00 Outpatient [facility] [id number] [facility] 2017-03-04 00:00:00 2017-03-04 00:00:00 Outpatient [facility] [id number] [facility] 2017-03-01 09:05:38 2017-03-01 09:05:38 Outpatient [facility] MED [id number] [facility] 2017-02-28 13:35:58 2017-02-28 13:35:58 Outpatient [facility] [id number] [facility] 2017-02-27 13:13:47 2017-02-27 13:13:47 Outpatient [facility] [id number] [facility] 2017-02-25 00:00:00 2017-02-25 00:00:00 Outpatient [facility] [id number] [facility] 2017-02-20 00:00:00 2017-02-20 00:00:00 Outpatient [facility] [id number] [facility] 2017-02-20 00:00:00 2017-02-20 00:00:00 Outpatient [facility] [id number] [facility] 2017-02-15 09:23:31 2017-02-15 09:23:31 Outpatient [facility] [id number] [facility] 2017-02-13 12:40:26 2017-02-13 12:40:26 Outpatient [facility] [id number] [facility] 2017-02-13 09:13:39 2017-02-13 09:13:39 Outpatient [facility] [id number] [facility] 2017-02-13 00:00:00 2017-02-13 00:00:00 Outpatient [facility] [id number] [facility] 2017-02-12 09:55:19 2017-02-12 09:55:19 Outpatient [facility] [id number] [facility] 2017-02-12 00:00:00 2017-02-12 00:00:00 Outpatient [facility] [id number] [facility] 2017-02-11 20:09:00 2017-02-11 20:09:00 Emergency [facility] MED [id number] [facility] 2017-02-11 18:02:33 2017-02-11 18:02:33 Outpatient [facility] [id number] [facility] 2017-02-05 16:03:44 2017-02-05 16:03:44 Outpatient [facility] [id number] [facility] 2017-01-30 12:37:28 2017-01-30 12:37:28 Outpatient [facility] [id number] [facility] 2017-01-30 09:37:37 2017-01-30 09:37:37 Outpatient [facility] [id number] [facility] 2017-01-30 09:24:47 2017-01-30 09:24:47 Outpatient [facility] [id number] [facility] 2017-01-28 00:00:00 2017-01-28 00:00:00 Outpatient [facility] [id number] [facility] 2017-01-28 00:00:00 2017-01-28 00:00:00 Outpatient [facility] [id number] [facility] 2017-01-22 00:00:00 2017-01-22 00:00:00 Outpatient [facility] [id number] [facility] Results Test Description Test Time Test Comments Results Result Comments Source TUMORIMAGE PET/CT SKUL-T 2020-05-20 16:14:35 IMP RESSION: 1. No evidence for metastatic disease.2. Stable right apical fibronodular scarring with SUV uptake equal tobackground and stable since the prior study. No suspicious pulmonarynodules identified.3. Bandlike area of increased uptake along the inferior margin of themastectomy site likely secondary to postsurgical changes.4. Stable anterior subcutaneous soft tissue nodules with mildlyincre ased uptake compared to the prior study that are nonspecific. Closeattention on follow-up. Signed By: Sean Jaramillo MD, 05/20/2020 4:14 PM Interface, Rad/Mammog In - 05/20/2020 4:19 PM CDTEXAM: PET/CT with F-18 FDGCPT code: 55122 (tumor imaging, skull base to thighs) EXAM: TUMORIMAGE PET/CT SKUL-TDATE: 05/20/2020 2:42 PM INDICATION: Breast cancer, assess treatment response ADDITIONAL INFORMATION: Breast cancer with history of metastaticpulmonary nodules.COMPARISON STUDIES: PET/CT 12/31/2019, 10/07/2018. CT PE protocol05/10/2020, chest CT 09/22/2018.SERUM GLUCOSE LEVEL: 102 mg/dLRADIOPHARMACEUTICAL: F-18 FDG 14.33 mCi IV left antecubitalUPTAKE TIME: 59 minutesDLP: 1531 mGy-cmCould the patient possibly be ?: No.TECHNIQUE: The study was performed using in-line PET/CT from the skullbase to the mid-thigh without iodinated contrast. Cross-sectional and3D (MIP) images, attenuation correction with CT and co-registration ofthe PET CT data were generated. SUV's reported are max SUV's unlessindicated otherwise.FINDINGS:Medical devices/hardware/lines: Left central venous Port-A-Cath.Postcholecystectomy clips.Head and neck: Brain. Normal. Orbits. Normal. Sinuses. Normal. Nasopharynx. Normal.. Rod Drawer, parotid, parapharyngeal spaces. Normal. Pharyngeal mucosal space. Normal. Submandibular space:Normal. Oropharynx/tongue. Normal. Tonsils. Normal.Hypopharynx. Normal. Larynx. Normal. Thyroid. The visible portions are unremarkable. Cervical Lymph Node stations.No adenopathy is seen. Axilla: Unremarkable.Mediastinal and Hilar Lymph Nodes: No adenopathy is seen. Heart.Mild to moderately enlarged. Coronary artery calcified plaque.Lungs.1. Right apical scarring with tiny stable nodules dating back to09/12/2018 and 03/19/2018 that is new since 06/10/2017 consistent with postXRT changes. SUV = 4.4 equal to background.2. Mosaic perfusion that is stable. Liver. Normal. Biliary. Normal.Gallbladder. Surgically absent. Pancreas. Mild atrophy. Spleen. Normal. Adrenals. Normal. Kidneys.Normal. Bladder. Decompressed. Reproductive tract. Status post GALI/BSO. Mesentery/Retroperitoneum. Normal.Abdomen/Pelvis Lymph Nodes: No adenopathy is seen. GI tract. The stomach, large and small bowel are unremarkable. Vessels. Unremarkable.Bones. Unremarkable. Soft tissues. 1. 2 left and one right small soft tissue nodules within the anteriorsubcutaneous tissues each measuring less than 0.6 cm (series 3, , 213, 205). SUV = 5.6, 5.2, and 2.1. Previously SUV = 4.5, 3.5, 1.5.2. Bandlike area of mild increased FDG uptake seen along the loweranterior chest wall along the inferior margin of the mastectomy site.IMPRESSIONIMPRESSION: 1. No evidence for metastatic disease.2. Stable right apical fibronodular scarring with SUV uptake equal tobackground and stable since the prior study. No suspicious pulmonarynodules identified.3. Bandlike area of increased uptake along the inferior margin of themastectomy site likely secondary to postsurgical changes. 4. Stable anterior subcutaneous soft tissue nodules with mildlyincreased uptake compared to the prior study that are nonspecific. Closeattention on follow- up.Signed By: Sean Jaramillo MD, 05/20/2020 4:14 PM [facility] DUPLEX DOPPLER LOWER EXTREMITY VENOUS, BILATERAL 2020-05-20 15:1 9:04 IMPRESSION: No evidence of deep venous thrombosis of the proximal lower extremitiesextending to the calves. Signed By: Zachary Mendez, 05/20/2020 3:19 PM Interface, Rad/Mammog In - 05/20/2020 3:24 PM CDTEXAM: Bilateral Lower Extremity Venous Duplex UltrasoundINDICATION: check for DVT, history of metastatic breast cancer, newleft leg pain COMPARISON: Lower extremity Dopplers 06/10/2017 TECHNIQUE: Gomez scale, color Doppler and spectral waveform analysis ofthe deep venous systems of the lower extremities was performed. FINDINGS: Right Lower Extremity: Common Femoral: Fully compressible with normal spontaneous waveforms. Proximal Greater Saphenous: Fully compressible. Femoral: Fully compressible with normal spontaneous waveforms. Normalresponse to augmentation.Proximal Deep Femoral: Normal spontaneous waveforms. Popliteal: Fully compressible with normal spontaneous waveforms. Left Lower Extremity: Common Femoral: Fully compressible with normal spontaneous waveforms.Proximal Greater Saphenous: Fully compressible. Femoral: Fully compressible with normal spontaneous waveforms. Normalresponse to augmentation.Proximal Deep Femoral: Normal spontaneous waveforms. Popliteal: Fully compressible with normal spontaneous waveforms. IMPRESSIONIMPRESSION: No evidence of deep venous thrombosis of the proximal lower extremitiesextending to the calves. Signed By: Zachary Mendez, 05/20/2020 3:19 PM [facility] POCT GLUCOSE POC docked device 2020-05-20 13:05:00 Test Item Glucose POC (test code = 23574875) 102 mg/dL 74-106 Lab Interpretation (test code = 46059-5) [facility] [id number] 00:11:18IMPRESSION: 1. No pulmonary emboli.2. Cardiomegaly, trace right pleural effusion, and mild interstitialedema. If the report is "FINALIZED" it indicates that the attending/staffradiologist has reviewed the images and agrees with the reside nt'sinterpretation. Dictated By: David Jett MD, 05/10/2020 10:26 PM I have review ed the study and agree with the findings in this report. Signed By: Robin Barnhart i, MD, 05/11/2020 12:11 AM Interface, Rad/Mammog In - 05/11/2020 12:16 AM CDTEXAM: CT Chest WITH contrast (PE Protocol)INDICATION: PE suspected, high pretest prob COMPARISON: Chest CT dated 10/10/2019.TECHNIQUE:Chest was scanned utilizing a m ultidetector helical scanner from thelung apex through the level of the diaphrag m after administration of IVcontrast. Thin section reconstructions were obtained with specialconcentration on the pulmonary arteries. Coronal and sagittalreform ations were obtained. Pulmonary embolism protocol was performed. IV CONTRAST : 100 mL of Omnipaque 350COMPLICATIONS: NoneRADIATION DOSE: Total DLP: 272 mGy*cm Estimated effective dose: (DLP x 0.014 x size factor) mSv CTDIvol has been reviewed. It is below the limits set by theRadiation Protocol Committee (RPC).FINDINGS:LINES/ TUBES: Left chest wall port with tip terminating at the low SVC.LUNGS AND AIRWAYS: No filling defect is identified within the pulmonarya rteries to the segmental level. Subpleural reticulations of the rightanterior l cuca may be patient registration representative of postradiation change. Stableright apical scarring. Mosaic attenuation pattern and mild interlobularseptal thickening, likely repre sentative of mild interstitial edema. PLEURA: Trace right pleural effusion. N o pneumothorax.HEART AND MEDIASTINUM: The thyroid gland is normal. Post surgica lchanges of right axillary lymph node dissection, otherwise, nomediastinal, marissa r or axillary lymphadenopathy. Cardiomegaly. There isno pericardial effusion. Main pulmonary artery measures 3.0 cm indiameter.UPPER ABDOMEN: Cholecystec byron.BONES: Stable 0.5 cm sclerotic focus in the posterior aspect of the T1ehngn bral body, likely benign.SOFT TISSUES: Postsurgical changes of right radical mas tectomy andaxillary lymph node dissection. Punctate left breast calcification.IM PRESSIONIMPRESSION: 1. No pulmonary emboli.2. Cardiomegaly, trace right pleura l effusion, and mild interstitialedema.If the report is "FINALIZED" it indicates that the attending/staffradiologist has reviewed the images and agrees with the resident'sinterpretation.Dictated By: David Jett MD, 05/10/2020 10:26 PMI have r eviewed the study and agree with the findings in this report.Signed By: Robin dodson MD, 05/11/2020 12:11 [facility] [id number] 23:59:33 IMPRESSION: Mildly enlarged cardiac silhouette, central vascular congestion, and mild interstitial edema. Underlying/developing pneumonia cannot beexcluded in th e appropriate clinical context. If the report is "FINALIZED" it indicates that the attending/staffradiologist has reviewed the images and agrees with the resid ent'sinterpretation. Dictated By: Sebas Daniels MD, 05/10/2020 9:50 PM I have rev iewed the study and agree with the findings in this report. Signed By: Robin silva MD, 05/10/2020 11:59 PM Interface, Rad/Mammog In - 05/11/2020 12:04 AM CDTEX AMINATION: XRAY CHEST 2 VIEWS INDICATION: CP COMPARISON: Chest radiograph 10/09/2019 FINDINGS: TUBES and LINES: Left IJ Port-A-Cath with tip in the distal SVC.LUNGS: Lungs are well inflated. No focal consolidations. Mild centra lvascular congestion and interstitial edema.PLEURA: No effusions. No pneumothora x. HEART AND MEDIASTINUM: Mildly enlarged cardiac silhouette. BONES AN D SOFT TISSUES: Diffuse demineralization the bones. Degenerativechanges of the t horacic spine and shoulders. Postsurgical changes fromright mastectomy and right axillary bill dissection clips.UPPER ABDOMEN: No free air under the diaphragm. There arecholecystectomy clips.IMPRESSIONIMPRESSION: Mildly enlarged cardiac si lhouette, central vascular congestion, andmild interstitial edema. Underlying/de veloping pneumonia cannot beexcluded in the appropriate clinical context.If the report is "FINALIZED" it indicates that the attending/staffradiologist has revie wed the images and agrees with the resident'sinterpretation.Dictated By: Sebas rodgers MD, 05/10/2020 9:50 PMI have reviewed the study and agree with the finding s in this report.Signed By: Robin Garcia MD, 05/10/2020 11:59 [facility] Basic Metabolic [id number] 21:07:00* Test Item Value Reference Range Interpretation Comments Sodium (test code = 2951-2) 143 mmol/L 136-145 Potassium (test code = 2823-3) 4.0 mmol/L 3.5-5.1 Chloride (test code = 2075-0) 110 mmol/L 98-107 H CO2 (test code = 07006536) 32 mmol/L 21-31 H Urea Nitrogen (test code = 30754620) 20.0 mg/dL 7-25 Creatinine (test code = 70106881) 0.8 mg/dL 0.6-1.2 Glucose (test code = 29447832) 102 mg/dL 70-110 Calcium (test code = 51039442) 9.3 mg/dL 8.6-10.3 GFR, Estimated (test code = 40292078) 73 >=90 mL/min/1.73 m2 L Anion Gap (test code = 34834505) 1 mmol/L 5-16 L Lab Interpretation (test code = 76976-0) Abnormal [facility] TROPONIN I POC docked [id number] 19:46:00* Test Item Value Reference Range Interpretation Comments Troponin POC (test code = 77048737) 0.01 ng/mL 0-0.08 Physician Notified Lab Interpretation (test code = 07156-5) Normal [place] [address] LEAD [id number] 19:13:1512 LEAD EKG FOR [facility] Test Date: [id number] Name: DANIEL PARIKH Department: 5520Patient ID: [id number] Room: Gender: F Painter Airbrush: : 1955 Requested By: TAYLER Tomas Number: [id number] Reading MD: Daniel Interiano M.D. MeasurementsIntervals Clements Rate: 89 P: 47PR: 190 QRS: -41QRSD: 157 T: 99QT: 415 QTc: 506 Interpretive StatementsSINUS RHYTHMPOSSIBLE LEFT ATRIAL ENLARGEMENTLEFT AXIS DEVIATIONLEFT BUNDLE BRANCH BLOCKElectronically Signed On 05-10-2020 19:13:10 CDT by Daniel Interiano M.D.SMS [facility] HealthInfluenza A/B and RSV [id number] 12:01:00* Test Item Value Reference Range Interpretation Comments Influenza A (test code = 19697-6) Not detected Not detected Influenza B (test code = 82819-1) Detected Not detected A RSV (test code = 12787-3) Not detected Not detected PATIENCE (test code = PATIENCE) This test utilizes FDA clear ed Becky charleen Influenza A/B & RSV real-time RT-PCR assay for qualitative detection and discrimination of Influenza A virus, Influenza B virus and Respiratory Syncytial virus (RSV). Additional testing is required to differentiate any specific Influenza A subtypes or strains or specific RSV subgroups. Lab Interpretation (test code = 88292-2) Abnormal [place] [address] LEAD [id number] 04:07:1212 LEAD EKG FOR [facility] Test Date: [id number] Name: DANIEL PARIKH Department: 5520Patient ID: [id number] Room: Gender: F Painter Airbrush: : 1955 Requested By: ABIMAEL CULVER Order Number: [id number] Reading MD: Daniel Interiano M.D. MeasurementsIntervals Clements Rate: 81 P: 19PR: 173 QRS: -17QRSD: 158 T: 98QT: 460 QTc: 536 Interpretive StatementsSINUS RHYTHMPOSSIBLE LEFT ATRIAL ENLARGEMENTLEFT BUNDLE BRANCH BLOCKElectronically Signed On 10-10-2019 4:07:07 DEBLOCKER by Daniel Interiano M.D.SMSHarris HealthTroponin I 2019-10-10 02:59:00* Test Item Value Reference Range Interpretation Comments Troponin I (test code = 35555507) <0.03 <0.04 ng/mL Lab Interpretation (test code = 53276-0) [facility]vasx[facility]-[id number] 02:57:00* Test Item Value Reference Range Interpretation Comments D-Dimer (test code = 97505506) 1.18 0.22- 0.48 ug/mL FEU H Values of quantitative D-Dimer less than 0.40 ug/mL FEU have been reported to be associated with a low probability of deep vein thrombosis/pulmonary embolism. This test alone should not be used to rule out DVT/PE. Lab Interpretation (test code = 16631-7) [facility]normal [facility]: unless the patient is HIV [id number] 20:35:00* Test Item Value Reference Range Interpretation Comments HIV Ag/Ab Combo (test code = 76245-9) Negative Negative Lab Interpretation (test code = 87853-7) Normal [place] [address] LEAD [id number] 20:21:1212 LEAD EKG FOR P [facility] Test Date: [id number] Name: DANIEL PARIKH Department: 5520Patient ID: [id number] Room: Gender: F Painter Airbrush: [id number]: 1955 Requested By: OBDULIA Gooden Number: [id number] Reading MD: tiara shen MeasurementsIntervals Clements Rate: 79 P: 45PR: 167 QRS: -30QRSD: 156 T: 88QT: 452 QTc: 520 Interpretive StatementsSINUS RHYTHMPOSSIBLE LEFT ATRIAL ENLARGEMENT [-0.1mV P WAVE IN V1/V2]LEFT BUNDLE BRANCH BLOCK [120+ ms QRS DURATION, 80+ ms Q/S IN V1/V2, 85+ ms RIN I/aVL/V5/V6]Reviewed by Electronically Signed On 10-09-2019 20 :21:08 DEBLOCKER by [facility] CREATIN[facility] POC docked device 2019-10-09 19:23:00* Test Item Value Reference Range Interpretation Comments Creatinine POC (test code = 42333135) 0.7 mg/dL 0.6-1.3 GFR, Estimated (test code = 86887893) >90 >=90 mL/min/1.73 m2 Lab Interpretation (test code = 98624-1) Normal [facility] BMP POC docked [id number] 19:19:00* Test Item Value Reference Range Interpretation Comments Sodium POC (test code = 25586873) 140 mmol/L 136-145 Potassium POC (test code = 68529299) 4.2 mmol/L 3.5-5.1 Chloride POC (test code = 72407920) 104 mmol/L 98-107 TCO2 POC (test code = 79828514) 29 mmol/L 21-32 Physician Notified Urea Nitrogen POC (test code = 95098455) 15 mg/dL 7-18 Glucose POC (test code = 09021692) 112 mg/dL 74-106 H Hemoglobin POC (test code = 23741482) 13.9 g/dL 12-16 Hematocrit POC (test code = 88338368) 41.0 % 37-47 Lab Interpretation (test code = 30067-3) [facility] - 2 non-specific [id number] 13:02:00* Test Item Value Reference Range Interpretation Comments Blood Culture (test code = 600-7) No growth 5 days [place] [address] LEAD [id number] 12:51:5212 LEAD EKG FOR [facility] Test Date: [id number] Name: DANIEL PARIKH Department: N1NBCqfhxud ID: [id number] Room: Gender: F Painter Airbrush: [id number]: 1955 Requested By: BRIGIDO KHAN Order Number: [id number] Reading MD: Prabha Caballero MD MeasurementsIntervals Clements Rate: 76 P: 32PR: 165 QRS: 2QRSD: 158 T: 53QT: 460 QTc: 517 Interpretive StatementsSinus rhythmLeft bundle branch blockElectronically Signed On 07-08-2019 12:51:48 DEBLOCKER by EVENS [facility]aesGalion [facility] HospitalTRAN[facility]AC[facility] (TTE)2019-07-07 16:17:00 TRANSTHORACIC ECHO (TTE) Transthoracic Echo Report DANIEL BAUER Age: 63 Gender: F : 1955 Exam D ate: 07/07/2019 14:12 Exam Location: [facility] Echo Or dering Phys: BRIGIDO KHAN Referring Phys: Reading Phys: Nitza Caballero MD Fellow Phys: Fellow Phys: Dressing Room Attendant: Andrew Oswald Reason For Exam: Indications: CoNS w/ mecA, staph epi bacteremia. evaluate for endocarditis. 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 Cardiomyopathy ICD-9 Codes: I42.3 Exam Type: TRANSTHORACIC ECHO (TTE) Procedure CPT: 64435 Addtional CPT: Ht (in): 63 BSA: 2.26 [...] E to LV E' Septal Ratio 12.7 [facility] (without differential)2019-07-07 05:05:00* Test Item Value Reference [...] 32.8 g/dL 32-36 RDW (test code = 90559-9) 52.0 fL 36.4-46.3 H Platelet (test code = 777-3) 170 K/uL 150-400 Mean Platelet Volume (test code = 22457-2) 10.3 fL 9.4-12.4 Percent NRBC (test code = 24896925) 0.0 % Lab Interpretation (test code = 43698-5) Abnormal [facility] Blood [id number] 23:22:00* Test Item Value Reference Range Interpretation Comments Staphylococcus (test code = 08578590) Not Detected Not Detected Staph aureus (test code = 05216149) Not Detected Not Detected Staph epidermidis (test code = 47916003) Detected Not Detected A POSITIVE for the coagulase-negative staphylococcus, Staphylococcus epidermidis and methicillin-resistance. Detection determined by Verigene nucleic acid test. Staph lugdunensis (test code = 17365473) Not Detected Not Detected Streptococcus (test code = 66904285) Not Detected Not Detected Strep agalactiae (test code = 03444315) Not Detected Not Detected Strep pyogenes (test code = 32925532) Not Detected Not detected Strep pneumoniae (test code = 03213418) Not Detected Not Detected Strep anginosus sp (test code = 74414826) Not Detected Not Detected Entero faecalis (test code = 40789343) Not Detected Not Detected Entero faecium (test code = 70212001) Not Detected Not Detected Listeria (test code = 74291064) Not Detected mecA (test code = 87391093) Detected Not detected PATIENCE (test code = PATIENCE) This test is performed on [employer] System utilizing reverse slubber operator (RT), polymerase chain reaction (PCR) and array [...] BC-GP panel. Lab Interpretation (test code = 54488-3) Abnormal [place] [address] LEAD [id number] 10:57:5712 LEAD EKG FOR [facility] Test Date: 0459-74-00Sad Name: [facility] Department: 5520Patient ID: [id number] Room: 4V25Ufiuxv: F Painter Airbrush: [id number]: 1955 Requested By: TAYLER Tomas Number: [id number] Reading MD: Dot Capone MeasurementsIntervals Clements Rate: 93 P: -10PR: 146 QRS: -35QRSD: 154 T: 91QT: 390 QTc: 487 Interpretive StatementsSINUS RHYTHMPOSSIBLE LEFT ATRIAL ENLARGEMENT [-0.1mV P WAVE IN V1/V2]MARKED LEFT AXIS DEVIATION [QRS AXIS < -30]LEFT BUNDLE BRANCH BLOCK [120+ ms QRS DURATION, 80+ ms Q/S IN V1/V2, 85+ ms RIN I/aVL/V5/V6]Electronically Signed On 07-06-2019 10:57:53 DEBLOCKER by Dot [place] [address] LEAD EKG 2019-07-06 10:57:5612 LEAD EKG FOR [facility] Test Date: [id number] Name: [facility] Department: 5520Patient ID: [id number] Room: 7W35Giyqme: F Painter Airbrush: [id number]: 1955 Requested By: GUILLERMO Heller Number: [id number] Reading MD: Dot Capone MeasurementsIntervals [place] Rate: 93 P: -10PR: 146 QRS: -13QRSD: 150 T: 125QT: 391 QTc: 487 Interpretive StatementsSINUS RHYTHMLEFT BUNDLE BRANCH BLOCK [120+ ms QRS DURATION, 80+ ms Q/S IN V1/V2, 85+ ms RIN I/aVL/V5/V6]Reviewed by Electronically Signed On 07-06-2019 10:57:51 DEBLOCKER by Dot [email or web address] LEAD [id number] 10:57:[id number] LEAD EKG FOR [facility] Test Date: [id number] Name: DANIEL PARIKH Department: [id number] ID: [id number] Room: 4R76Uoetnm: F Painter Airbrush: [id number]: 1955 Requested By: GUILLERMO MANSFIELD Order Number: [id number] Reading MD: Dot Capone MeasurementsIntervals Clements Rate: 93 P: -6PR: 143 QRS: -21QRSD: 149 T: 117QT: 383 QTc: 479 Interpretive StatementsSINUS RHYTHMLEFT BUNDLE BRANCH BLOCK [120+ ms QRS DURATION, 80+ ms Q/S IN V1/V2, 85+ ms RIN I/aVL/V5/V6]Reviewed by Electronically Signed On 07-06-2019 10:57:43 DEBLOCKER by Dot [employer] Adventurespenn medicine princeton medical centerSkill-LifePOCT VBG POC docked [id number] 07:02:00* Test Item Value Reference Range Interpretation Comments pH, Silverio POC (test code = 69678613) 7.45 7.33-7.43 H HCO3, Silverio POC (test code = 98375279) 23 mmol/L 22-26 TCO2 POC (test code = 39291790) 24 mmol/L 21-32 PO2, Venous POC (BKR) (test code = 96297704) 51 50- 75 mm Hg pCO2,Silverio POC (test code = 78339572) 32.3 38- 50 mmHg L Base Deficit, Silverio POC (test code = 68211377) -1 Sample Type (test code = 28506396) BERYL Physician Notified Lactic Acid POC (test code = 04009132) 0.66 mmol/L 0.4-2 % Sat, Silverio POC (test code = 90350176) 88 % Lab Interpretation (test code = 25425-4) [facility]
[2020-06-29 13:29] LABS: ALANINE AMINOTRANSFERASE 22 IU/L (0-55); ALBUMIN 3.7 g/dL (3.5-5.0); ALBUMIN/GLOBULIN RATIO 0.9 (0.8-2.0); ALKALINE PHOSPHATASE 105 IU/L (40-150); ANION GAP 12.9 mmol/L (8-16); BLOOD UREA NITROGEN 13 mg/dL (7-26); BUN/CREATININE RATIO 17 (6-25); CALCIUM 9.6 mg/dL (8.4-10.2); CARBON DIOXIDE 24 mmol/L (22-29); CHLORIDE 108 mmol/L (98-107); CREATINE KINASE 64 IU/L (29-168); CREATININE, SERUM 0.78 mg/dL (0.57-1.11); EST GLOMERULAR FILTRATION RATE > 60 ML/MIN (60-); GLUCOSE 113 mg/dL (74-118); POTASSIUM 3.9 mmol/L (3.5-5.1); SODIUM 141 mmol/L (136-145)
--- NOTE | 2020-06-29 13:30 | Emergency Department Note ---
History of Present Illnes History of Present Illness Chief Complaint: Chest Pain History of Present Illness This is a 64 year old female Chief Complaint Comment PATIENT IN FROM [facility] WITH COMPLAINTS OF CHEST PAIN OFF AND ON SINCE SATURDAY; RATES PAIN 02/25. PATIENT ALSO WITH COMPLAINTS OF SHORTNESS OF BREATH - WORSE ON EXERTION. PATIENT STATES THAT SHE HAS A HISTORY OF CHF, AND THAT LAST NIGHT SHE HAD TO SLEEP PROPPED UP. Historian: Patient Arrival Mode: Car Rf Engineer Required: No Onset (how long ago): day(s) Location: Chest Quality: pressure Radiation: Reports non-radiation Severity: moderate Onset quality: gradual Duration (how long): day(s) Timing of current episode: constant Progression: unchanged Chronicity: new Context: Denies recent illness, Denies recent surgery Relieving factors: none Exacerbating factors: none Associated symptoms: Reports denies other symptoms Treatments prior to arrival: none Past Medical/Family History Physician Review I have reviewed the patient's past medical and family history. Any updates have been documented here. Past Medical History Recent Fever: No Clinical Suspicion of Infectio: No New/Unexplained Change in Ment: No Past Medical History: Hypertension, CHF Other Medical History: BREAST CA LUNG CA Past Surgical History: Mastectomy Other Surgery: RIGHT BREAST MASTECTOMY Social History Smoking Cessation: Never Smoker Counseling Performed: No Alcohol Use: None Any Illegal Drug Use: No Physically hurt or threatened: No Other Any Pre-Existing Lines (PICC,: No Review of Systems Review of Systems Constitutional: Reports no symptoms EENTM: Reports no symptoms Cardiovascular: Reports no symptoms Respiratory: Reports as per HPI Gastrointestinal: Reports no symptoms Genitourinary: Reports no symptoms Musculoskeletal: Reports no symptoms Integumentary: Reports no symptoms Neurological: Reports no symptoms Psychological: Reports no symptoms Endocrine: Reports no symptoms Hematological/Lymphatic: Reports no symptoms Physical Exam Related Data Allergies: Coded Allergies: amoxicillin (Verified Allergy, Intermediate, ITCHY, 06/29/20) Triage Vital Signs Vital Signs Date Time Temp Pulse Resp B/P (MAP) Pulse Ox O2 Delivery O2 Flow Rate FiO2 06/29/20 12:47 98.0 98 20 144/103 99 Room Air Vital signs reviewed: Yes Physical Exam CONSTITUTIONAL Constitutional: Present well-developed, Present well-nourished HENT HENT: Present normocephalic, Present atraumatic, Present oropharynx clear/moist, Present nose normal HENT L/R: Present left ext ear normal, Present right ext ear normal EYES Eyes: Reports PERRL, Reports conjunctivae normal NECK Neck: Present ROM normal PULMONARY Pulmonary: Present effort normal, Present breath sounds normal CARDIOVASCULAR Cardiovascular: Present regular rhythm, Present heart sounds normal, Present capillary refill normal, Present normal rate GASTROINTESTINAL Abdominal: Present soft, Present nontender, Present bowel sounds normal GENITOURINARY Genitourinary: Present exam deferred SKIN Skin: Present warm, Present dry MUSCULOSKELETAL Musculoskeletal: Present ROM normal, Present edema (Mild, 1+ edema) NEUROLOGICAL Neurological: Present alert, Present oriented x 3, Present no gross motor or sensory deficits PSYCHOLOGICAL Psychological: Present mood/affect normal, Present judgement normal Results Laboratory Laboratory Laboratory Tests Test 06/29/20 12:54 Procedures 12 Lead ECG Interpretation ECG Interpretation : Rf Engineer: Interpreted by ED physician Date: Jun 29, 2020 Rhythm: sinus rhythm Rate: normal QRS axis: normal Conduction: left bundle branch block ST segments normal: Yes T waves normal: Yes Clinical Impression: abnormal ECG Assessment & Plan Medical Decision Making MDM 64-year-old female past medical history significant for hypertension and CHF presents to the emergency department for chest pressure and difficulty breathing while lying flat. Examination shows mild bilateral lower extremity edema. Mild tachypnea noted. Initial differential included CHF exacerbation versus pulmonary embolism versus cancer recurrence among others. Workup including CT chest and labs are significant for BNP 1000. Will give Lasix 40mg in the Ed and Rx for 20mg QD and instructions to f/u w/ PCP within 1 week. Appropriate for DC Reassessment Reassessment time: 13:29 Reassessment NAD Assessment & Plan Final Impression: (1) CHF (congestive heart failure) Depart Disposition: HOME, SELF-CARE Last Vital Signs Date Time Temp Pulse Resp B/P (MAP) Pulse Ox O2 Delivery O2 Flow Rate FiO2 06/29/20 13:09 98.0 92 18 128/89 98 Room Air Home Meds Active Scripts Furosemide (LASIX) 20 Mg Tablet, 20 MG PO DAILY for 14 Days, #14 TAB 0 Refills Prov:ALYSSIA WOODS MD 06/29/20 ALYSSIA WOODS MD Jun 29, 2020 13:30
[2020-06-29] MEDS ORDERED: SODIUM CHLORIDE 0.9% 50ML 50 ML ONE (14:20)
[2020-06-29] MEDS ORDERED: IOPAMIDOL 370 MG/ML 200 ML INFUS..BTL INJ ONE (14:20)
--- NOTE | 2020-06-29 14:44 | Diagnostic Imaging Report ---
CT of the chest, PE protocol, with contrast, 06/29/2020. History: Chest pain, shortness of breath, history of CHF. Comparison: None available. Technique: Multidetector thin collimation CT scanning of the chest was performed from the level of the apices to the upper abdomen during the pulmonary arterial phase, after intravenous administration of contrast. Coronal and sagittal MIP reformations were obtained. RADIATION DOSE: Total DLP: 522 mGy*cm Dose modulation, iterative reconstruction, and/or weight based adjustment of the mA/kV was utilized to reduce the radiation dose to as low as reasonably achievable. Discussion: Chest: The pulmonary arteries are well-opacified without evidence of filling defect or vessel cut off. The main pulmonary artery is enlarged measuring 3.9 cm in diameter. The heart is enlarged. The aorta is normal in size. Thyroid is unremarkable. There is no axillary or mediastinal adenopathy. Subpleural scarring is noted along the right upper and lower lobes. Minimal right middle lobe bronchiectasis is noted. There is no evidence of consolidation or mass. Trace right pleural effusion is present. Limited evaluation of the upper abdomen shows normal bilateral adrenal glands. Bones and soft tissues: No acute abnormality. Mild degenerative changes are present throughout the thoracic spine. Status post right mastectomy. Multiple surgical clips are present in the right lung. Left IJ Port-A-Cath is noted. IMPRESSION: 1. No evidence of acute pulmonary embolus. 2. Cardiomegaly and pulmonary enlargement with minimal right pleural effusion, but without evidence of mikey pulmonary edema. Right-sided scarring is noted. 3. Status post right mastectomy with axillary lymph node dissection. Signed by: Lennox Chang on 06/29/2020 2:41 PM
[2020-06-29] MEDS ORDERED: FUROSEMIDE INJ 10 MG/ML 4 ML VIAL IV ONE (15:15)
[2020-06-29] MEDS ORDERED: LASIX20 MG PO (15:23)
[2020-06-29 17:03] VITALS: BP 146/100
== END 2020-06-29 17:06 | disposition home or self-care (01) ==
LOC: ER 12:42
DX: I50.9 Heart failure, unspecified (principal); I44.7 Left bundle-branch block, unspecified; R94.31 Abnormal electrocardiogram [ECG] [EKG]; I10 Essential (primary) hypertension; Z85.3 Personal history of malignant neoplasm of breast; Z85.118 Personal history of other malignant neoplasm of bronchus and lung
CPT/HCPCS: 36415; 71260; 80053; 82550; 82553; 83880; 84484; 85025; 93005; 99283; J1940; Q9967